=== PATIENT | male | born 1940 | race Two or more races ===

== ENCOUNTER 2016-12-24 13:12 | Inpatient (IN) | payer SELFPAY ==
--- NOTE | 2016-12-24 13:34 | CPEKG ---
Heart Rate: 74 RR Interval: 811 P-R Interval: 184 QRSD Interval: 170 QT Interval: 436 QTC Interval: 484 P [place]: 61 QRS [place]: -20 T Wave [place]: 176 EKG Severity - ABNORMAL ECG - EKG Impression: SINUS RHYTHM EKG Impression: VENTRICULAR PREMATURE COMPLEX EKG Impression: PROBABLE LEFT ATRIAL ABNORMALITY EKG Impression: LEFT BUNDLE BRANCH BLOCK Electronically Signed By: Tylre Armstrong 24-Dec-2016 17:29:51
--- NOTE | 2016-12-24 14:24 | EDPHY ---
H & P Stated Complaint: CP for "a couple of months" in [place] said he needs surg. Time Seen by Provider: 12/24/16 14:23 HPI/ROS: CHIEF COMPLAINT: Exertional chest pain HISTORY OF PRESENT ILLNESS: The patient presents to the ED with a 4 month history of exertional chest pain. The patient reportedly was seen by control tower operator in [place] 1 month ago and was diagnosed with a "tight heart valve and inflammation." It does not sound as if the patient had an angiogram. The patient denies prior history of coronary artery disease. The patient does have a history of hypertension and diabetes. The patient reports he has had 4 months of exertional chest pain. His last episode of chest pain was earlier today. He appears to taking a calcium channel nataliia which resulted in improvement of his symptoms. The patient is currently symptom-free. The patient denies pleuritic chest pain. He denies asymmetric calf pain or swelling. The patient denies additional acute complaints. REVIEW OF SYSTEMS: A comprehensive 10 point review of systems is otherwise negative aside from elements mentioned in the history of present illness. Source: Patient - Personal History Current Tetanus/Diphtheria Vaccine: Unsure Current Tetanus Diphtheria and Acellular Pertussis (TDAP): Unsure - Medical/Surgical History Hx Asthma: No Hx Chronic Respiratory Disease: No Hx Diabetes: Yes Hx Cardiac Disease: Yes Hx Renal Disease: No Hx Cirrhosis: No Hx Alcoholism: No Hx HIV/AIDS: No Hx Splenectomy or Spleen Trauma: No Other PMH: DM HTN Afib - Social History Smoking Status: Former smoker - Physical Exam Exam: General Appearance: Alert, no distress Eyes: Pupils equal and round no pallor or injection ENT, Mouth: Mucous membranes moist Respiratory: There are no retractions, lungs are clear to auscultation Cardiovascular: Regular rate and rhythm Gastrointestinal: Abdomen is soft and nontender, no masses, bowel sounds normal Neurological: A&O, normal motor function, normal sensory exam, normal cranial nerves Skin: Warm and dry, no rashes Musculoskeletal: Neck is supple nontender Extremities: symmetrical, full range of motion Constitutional: Initial Vital Signs Temperature (C) 36.8 C 12/24/16 13:17 Heart Rate 88 12/24/16 13:17 Respiratory Rate 16 12/24/16 13:17 Blood Pressure 157/95 H 12/24/16 13:17 O2 Sat (%) 96 12/24/16 13:17 O2 Delivery Mode Room Air Allergies/Adverse Reactions: erythromycin base [From E-Mycin] Allergy (Verified 12/24/16 13:22) Medical Decision Making - Diagnostics EKG Interpretation: EKG: Complete interpretation has been separately recorded in the [facility] archive. Summary impression: Left bundle branch block with nonspecific ST T wave changes noted. No prior EKG to compare to. Imaging Results: Imaging Impressions Chest X-Ray 12/24/16 14:31 Impression: 1. Hypoventilatory chest with peribronchial thickening possibly related to mild fluid overload or bronchitis. 2. Mild cardiomegaly. ED Course/Re-evaluation: The patient presents to the ED with a 4 month history of intermittent exertional chest pain. The patient has a left bundle branch block of unknown duration. The patient is currently chest pain-free. The patient has a number of risk factors for acute coronary syndrome and coronary artery disease. The patient's initial troponin was elevated at 0.081. The patient did receive a 325 mg dose of aspirin. The patient was placed on a classroom monitor. A stat echocardiogram was obtained. I consulted with Dr. Tom Abraham who is on-call for Cardiology who will see the patient in consultation. The patient was seen by Lou from Cardiology in the emergency department who informs me the cardiology service will admit the patient primarily. Patient remained chest pain free throughout his stay in the emergency department. The patient did have an echocardiogram which demonstrates an ejection fraction of 20% and global hypokinesis. Differential Diagnosis: Differential diagnosis considered includes acute coronary syndrome, metabolic abnormality, pericarditis, pulmonary embolism, pneumothorax, dissection - Data Points Laboratory Results: Laboratory Results 12/24/16 14:10 12/24/16 14:10 12/24/16 12/24/16 14:10 14:10 WBC 6.82 10^3/uL 10^3/uL (3.80-9.50) RBC 5.04 10^6/uL 10^6/uL (4.40-6.38) Hgb 15.0 g/dL g/dL (13.7-17.5) Hct 44.4 % % (40.0-51.0) MCV 88.1 fL fL (81.5-99.8) MCH 29.8 pg pg (27.9-34.1) MCHC 33.8 g/dL g/dL (32.4-36.7) RDW 13.3 % % (11.5-15.2) Plt Count 142 10^3/uL L 10^3/uL (150-400) MPV 11.8 fL H fL (8.7-11.7) Neut % (Auto) 50.4 % % (39.3-74.2) Lymph % (Auto) 37.7 % % (15.0-45.0) [place] % (Auto) 7.6 % % (4.5-13.0) Eos % (Auto) 3.8 % % (0.6-7.6) Baso % (Auto) 0.4 % % (0.3-1.7) Nucleat RBC Rel Count 0.0 % % (0.0-0.2) Absolute Neuts (auto) 3.43 10^3/uL 10^3/uL (1.70-6.50) Absolute Lymphs (auto) 2.57 10^3/uL 10^3/uL (1.00-3.00) Absolute Monos (auto) 0.52 10^3/uL 10^3/uL (0.30-0.80) Absolute Eos (auto) 0.26 10^3/uL 10^3/uL (0.03-0.40) Absolute Basos (auto) 0.03 10^3/uL 10^3/uL (0.02-0.10) Absolute Nucleated RBC 0.00 10^3/uL 10^3/uL (0-0.01) Immature Gran % 0.1 % % (0.0-1.1) Immature Gran # 0.01 10^3/uL 10^3/uL (0.00-0.10) Sodium 146 mEq/L H mEq/L (134-144) Potassium 4.6 mEq/L mEq/L (3.5-5.2) Chloride 111 mEq/L H mEq/L (97-110) Carbon Dioxide 21 mEq/l L mEq/l (22-31) Anion Gap 14 mEq/L mEq/L (8-16) BUN 21 mg/dL mg/dL (7-23) Creatinine 1.0 mg/dL mg/dL (0.7-1.3) Estimated GFR > 60 Glucose 165 mg/dL H mg/dL (70-100) Calcium 9.6 mg/dL mg/dL (8.5-10.4) Troponin I 0.081 ng/mL H ng/mL (0-0.034) NT-Pro-B Natriuret Pep Pending Departure - Departure Disposition: [facility] Inpatient Acute Clinical Impression: Elevated troponin Chest pain Qualifiers: Chest pain type: precordial pain Qualified Code(s): R07.2 - Precordial pain Condition: Good
[2016-12-24 14:33] LABS: % IMMATURE GRANULYOCYTES 0.1 % (0.0-1.1); ABSOLUTE IMMATURE GRANULOCYTES 0.01 10^3/uL (0.00-0.10); ADD DIFF? NO; ADD MORPH? NO; ADD SCAN? NO; ATYPICAL LYMPHOCYTE FLAG 20 (0-99); FRAGMENT RBC FLAG 0 (0-99); HEMATOCRIT 44.4 % (40.0-51.0); LEFT SHIFT FLG 20 (0-99); LIPEMIA HEMOLYSIS FLAG 90 (0-99); MEAN CELL HEMOGLOBIN 29.8 pg (27.9-34.1); MEAN CELL HEMOGLOBIN CONCENTR. 33.8 g/dL (32.4-36.7); MEAN CELL VOLUME 88.1 fL (81.5-99.8); MEAN PLATELET VOLUME 11.8 fL (8.7-11.7); PLATELET CLUMPS FLAG 10 (0-99); PLATELET COUNT 142 10^3/uL (150-400); RED BLOOD CELL COUNT 5.04 10^6/uL (4.40-6.38); RED CELL DISTRIBUTION WIDTH 13.3 % (11.5-15.2)
[2016-12-24 14:57] LABS: ANION GAP 14 mEq/L (8-16); CALCIUM 9.6 mg/dL (8.5-10.4); CARBON DIOXIDE 21 mEq/l (22-31); CHLORIDE 111 mEq/L (97-110); GLOMERULAR FILTRATION RATE > 60; GLUCOSE 165 mg/dL (70-100); POTASSIUM 4.6 mEq/L (3.5-5.2); SODIUM 146 mEq/L (134-144)
[2016-12-24 15:09] LABS: TROPONIN I 0.081 ng/mL (0-0.034)
--- NOTE | 2016-12-24 16:07 | ECHO ---
[id number] + + [address] : : [place] [address] : : [phone] + + Adult Echocardiographic Report + ----+ :Name: Anayeli ABREUvivek Date: 12/24/2016 03:24 PM : : Hospital Admission Number: [id number] Location : ER: :: 1940 Gender: Male Height: 66 in : :Age: 76 yrs Race: [facility] Weight: 171 lb : :Reason For Study: Chest pain x 4 months : : BSA: 1.9 meters2 : :History: Pt claims small [place] many years ago. : + ----+ MMode/2D Measurements \T\ Calculations IVSd: 0.57 cm LVIDd: 6.4 cm FS: 13.9 % MV Diam: 2.8 cm LVPWd: 0.88 cm LVIDs: 5.5 cm EDV(Teich): 207.8 ml ESV(Teich): 147.4 ml EF(Teich): 29.1 % LA dimension: LVOT diam: 2.1 cmLVLd ap4: 10.0 cm SV(MOD-sp4): 4.3 cm LVOT area: EDV(MOD-sp4): 41.0 ml 3.5 cm2 155.0 ml LVLs ap4: 9.1 cm ESV(MOD-sp4): 114.0 ml EF(MOD-sp4): 26.5 % Normal Measurement Values: + + :LVIDd (3.5-5.7cm) IVSd (0.6-1.1cm) LVPWd (0.6-1.1cm) Aortic Root (2.0-3.7cm)Left Atrium (1.5-4.0cm): :LV Vol(d) (76-115ml) LV Vol(s) (29-48ml) Ejec Fraction (50-65%)PV Samir (0.6- 1.2m/s) TV Samir (0.4-1.0m/s) : :MV E Samir (0.8-1.0m/s)MV A Samir (0.3-1.0m/s)LVOT Samir (0.7-1.2m/s) Asc Ao Samir ( 0.9-1.8m/s) : + + Doppler Measurements \T\ Calculations MV E max samir: MV V2 max: Ao V2 max: LV V1 max: 117.0 cm/sec 132.0 cm/sec 146.0 cm/sec 77.5 cm/sec MV A max samir: MV max P.0 mmHg Ao max P.5 mmHgLV V1 max P.5 cm/sec MV V2 mean: Ao mean P.4 mmHg MV E/A: 1.6 79.5 cm/sec 4.0 mmHg LV V1 mean PG: MV mean P.0 mmHgAo V2 mean: 1.0 mmHg MV V2 VTI: 47.2 cm 92.7 cm/sec LV V1 mean: MV area (1 diam): Ao V2 VTI: 26.1 cm 49.6 cm/sec 6.2 cm2 MELISSA(I,D): 1.7 cm2 LV V1 VTI: 13.1 cm MVA(VTI): 0.96 cm2 MELISSA(V,D): 1.8 cm2 MV Flow area(1diam): 6.2 cm2 MR max samir: MR(RF 1 diam): 3.0 %SV(MV 1 diam): TR max samir: 510.0 cm/sec 290.6 ml 266.0 cm/sec MR max PG: SI(MV 1 diam): TR max P.0 mmHg 155.3 ml/m2 28.3 mmHg SV(LVOT): 45.4 ml RAP systole: 5.0 mmHg RVSP(TR): 33.3 mmHg RF(MV,LVOT)(1diam): 0.84 Left Ventricle The left ventricle is mildly dilated. There is mild concentric left ventricular hypertrophy. Left ventricular systolic function is moderate to severely reduced. EF estimate is 20%. There is Doppler evidence for diastolic dysfunction. Septal motion is consistent with conduction abnormality. LV entire apical region including apical septal/inferior and apical anterior narayan are akinetic. Right Ventricle The right ventricle is normal in size and function. Atria The left atrium is moderately dilated. Right atrial size is normal. The interatrial septum is intact with no evidence for an atrial septal defect. Mitral Valve Calcified mitral apparatus. There is no evidence of mitral valve prolapse. There is no mitral valve stenosis. There is moderate mitral regurgitation. Tricuspid Valve Normal tricuspid valve. There is trace tricuspid regurgitation. Aortic Valve The aortic valve opens well. There is no aortic stenosis. Trace aortic regurgitation. Pulmonic Valve The pulmonic valve is normal in structure and function. There is no pulmonic valvular regurgitation. Great Vessels The aortic root is normal size. Pericardium/Pleural There is no pericardial effusion. Conclusion A complete two-dimensional transthoracic echocardiogram was performed (2D, M-mode, Doppler and color flow Doppler). The left ventricle is mildly dilated. Left ventricular systolic function is moderate to severely reduced. EF estimate is 20%. There is Doppler evidence for diastolic dysfunction. There is mild concentric left ventricular hypertrophy. Septal motion is consistent with conduction abnormality. LV entire apical region including apical septal/inferior and apical anterior narayan are akinetic. The left atrium is moderately dilated. Calcified mitral apparatus. There is moderate mitral regurgitation. There is trace tricuspid regurgitation. Trace aortic regurgitation. Final Reading Physician: Ludin Gastelum signed on 12/24/2016 04:06 PM Ordering Physician: Tyler Armstrong Performed By: Xi Corona RDCS
[2016-12-24] MEDS ORDERED: ONDANSETRON DISINTEGRATING 4 MG TAB PO PRN (16:10)
[2016-12-24] MEDS ORDERED: TEMAZEPAM 15 MG CAP PO PRN (16:10)
[2016-12-24] MEDS ORDERED: ACETAMINOPHEN 325 MG TAB PO PRN (16:10)
[2016-12-24] MEDS ORDERED: NITROGLYCERIN 0.4 MG BTL SL PRN (16:10)
[2016-12-24] MEDS ORDERED: D50W 25 GM/50 ML SYR IVP PRN (16:49)
--- NOTE | 2016-12-24 17:33 | GCON ---
[f rep st] CONSULTATION CARDIOLOGY CONSULTATION REASON FOR CONSULTATION: We are asked by Dr. Asad Armstrong of the emergency department to evaluate the patient for his chest pain. HISTORY OF PRESENT ILLNESS: The patient is a 76-year-old male with a history listed of hypertension , type 2 diabetes mellitus, and possibly AFib, who reports a 4-month history of exertional chest dis comfort. He describes a midsternal discomfort with associated dyspnea. Symptoms are associated wit h minimal activity and described as moderate to severe tightness. He denies any radiation. He desc ribes chest discomfort that radiates to his bilateral arms. He was recently seen in [place] and was told he had an "inflammation in his heart" and was also told he had a heart valve that was blocked. REVIEW OF SYSTEMS: Positive for a 30 kg weight loss due to dry heaves and inability to swallow. He has also been noting edema. PAST MEDICAL HISTORY: 1. Diabetes mellitus. 2. Hypertension. 3. Atrial fibrillation. PAST SURGICAL HISTORY: None listed. SOCIAL HISTORY: He is . 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 [facility] [place] [facility] He denies any alcohol intake. MEDICATIONS: Yet to be reconciled. ALLERGIES: Listed to erythromycin. PHYSICAL EXAMINATION: VITAL SIGNS: BP of 153/85, heart rate 60, respirations 16, O2 saturation 94% on room air. GENERAL: He is a pleasant male, in no apparent distress. EYES: CHAYO. No scleral i cterus detected. HEENT: Head normocephalic, atraumatic. Mucous membranes moist. NECK: Supple wi th no JVD. HEART: Regular rate and rhythm. LUNGS: Clear. ABDOMEN: Nontender, with normoactive bowel sounds. His xiphoid process is protuberant, without tenderness on palpation. SKIN: Warm and dry. EXTREMITIES: There is 2+ ankle edema. Multiple excoriations. : No Akers present. PSYCH : Normal mood and affect. NEURO: No focal deficits detected. LABORATORY DATA: CBC with WBC 6.82, hemoglobin 15, hematocrit 44.4, platelet count 142. BMP with s odium 146, potassium 4.6, chloride 111, CO2 21, BUN 21, creatinine 1, glucose 165. Troponin 0.081. 12-lead ECG, personally interpreted, demonstrates sinus rhythm with left bundle branch block. One PVC noted. Chest x-ray reviewed shows mild cardiomegaly, hypoventilatory chest with peribronchial t hickening related to mild fluid overload. Echocardiogram from this admission shows EF of 20% with m oderate to severely reduced LV systolic function. LV is mildly dilated. There is diastolic dysfunc tion. There is mild concentric LVH. There is LV entire apical region including apical septal infer ior and apical anterior narayan that are akinetic. Moderately dilated left atrium. Calcified mitral apparatus. Moderate MR, trace TR, and trace AR. I have reviewed the care with Dr. Asad Armstrong and Shelton Munoz. IMPRESSION AND PLAN: The patient is a 76-year-old male presenting with acute heart failure and acut e coronary syndrome. 1. Acute coronary syndrome. His symptoms are worrisome for CCS class 3-4 angina. Reviewed options , and the patient is agreeable to left heart catheterization for further evaluation. 2. Systolic congestive heart failure. New diagnosis. Further workup is indicated. He will be kep t n.p.o. for left heart catheterization in the morning. 3. Type 2 diabetes mellitus. His medications are yet to be reconciled. We will plan for sliding s adolfo insulin. 4. Hypertension. Blood pressure is inadequately controlled. His medications will be reconciled. He will be started on beta nataliia therapy. 5. Weight loss. Unclear etiology. We will either ask for a hospitalist consult versus outpatient gastrointestinal workup due to his anorexia and difficulty swallowing. 6. Status. The patient is being admitted to observation status. Should he require further testing , he will need to be transitioned to inpatient status. 7. Code status. He is full code. 8. Deep venous thrombosis prophylaxis. He is moderate risk. We will await further results from e cardiac catheterization before starting on deep venous thrombosis prophylaxis. He will be started on mechanical prophylaxis with compression stockings now. /[id number]/MODL
[2016-12-24] MEDS: ASPIRIN EC 325 MG TAB PO SCH (18:08)
[2016-12-24] MEDS: INSULIN LISPRO 100 UNIT/ML SC SCH (18:38)
[2016-12-24 19:43] LABS: HEMOGLOBIN A1C 11.8 % (4.0-6.0)
[2016-12-24] MEDS: METOPROLOL TARTRATE 25 MG TAB PO SCH (20:03)
[2016-12-25 02:33] LABS: % IMMATURE GRANULYOCYTES 0.1 % (0.0-1.1); ABSOLUTE IMMATURE GRANULOCYTES 0.01 10^3/uL (0.00-0.10); ADD DIFF? NO; ADD MORPH? NO; ADD SCAN? NO; ATYPICAL LYMPHOCYTE FLAG 10 (0-99); FRAGMENT RBC FLAG 0 (0-99); HEMATOCRIT 42.3 % (40.0-51.0); HEMOGLOBIN 14.2 g/dL (13.7-17.5); LEFT SHIFT FLG 0 (0-99); LIPEMIA HEMOLYSIS FLAG 80 (0-99); MEAN CELL HEMOGLOBIN 29.5 pg (27.9-34.1); MEAN CELL HEMOGLOBIN CONCENTR. 33.6 g/dL (32.4-36.7); MEAN CELL VOLUME 87.9 fL (81.5-99.8); MEAN PLATELET VOLUME 11.7 fL (8.7-11.7); PLATELET CLUMPS FLAG 0 (0-99); PLATELET COUNT 137 10^3/uL (150-400); RED BLOOD CELL COUNT 4.81 10^6/uL (4.40-6.38); RED CELL DISTRIBUTION WIDTH 13.3 % (11.5-15.2)
[2016-12-25 02:42] LABS: INR 1.1 (0.83-1.16); PROTIME(PATIENT) 14.1 SEC (12.0-15.0)
[2016-12-25 02:43] LABS: ANION GAP 11 mEq/L (8-16); APTT 28.5 SEC (23.0-38.0); CARBON DIOXIDE 21 mEq/l (22-31); CHLORIDE 114 mEq/L (97-110); CHOLESTEROL 118 mg/dL (140-220); CHOLESTEROL/HDL RATIO 2.62 RATIO (1.00-4.97); GLOMERULAR FILTRATION RATE > 60; GLUCOSE 103 mg/dL (70-100); HIGH DENSITY LIPOPROTEIN 45 mg/dL (40-65); LDL/HDL RATIO 1.11 RATIO (1.00-3.64); LOW DENSITY LIPOPROTEIN 50 mg/dL (80-100); MAGNESIUM 1.9 mg/dL (1.6-2.3); NON-HIGH DENSITY LIPOPROTEIN 73 mg/dL (90-129); POTASSIUM 4.1 mEq/L (3.5-5.2); SODIUM 146 mEq/L (134-144); TRIGLYCERIDE 116 mg/dL (40-150); VERY LOW DENSITY LIPOPROTEINS 23 mg/dL (8-25)
[2016-12-25 02:54] LABS: TROPONIN I 0.112 ng/mL (0-0.034)
[2016-12-25] MEDS ORDERED: NS 1,000 ML IV ONE (06:00)
[2016-12-25] MEDS ORDERED: ASPIRIN EC 325 MG TAB PO ONE (06:00)
[2016-12-25] MEDS ORDERED: diphenhydrAMINE 25 MG CAP PO ONE ×2 (06:00→08:45)
[2016-12-25] MEDS ORDERED: DIAZEPAM 5 MG TAB PO ONE ×2 (06:00→08:45)
[2016-12-25] MEDS ORDERED: LIDOCAINE 1% 300 MG/30 ML SDV ONE ×3 (07:47→09:13)
[2016-12-25] MEDS ORDERED: MIDAZOLAM 2 MG/2 ML VIAL ONE ×3 (07:47→09:13)
[2016-12-25] MEDS ORDERED: fentaNYL 100 MCG/2 ML INJ ONE ×3 (07:47→09:13)
[2016-12-25] MEDS ORDERED: VERAPAMIL 5 MG/2 ML VIAL ONE ×2 (07:48→08:06)
[2016-12-25] MEDS ORDERED: HEPARIN 10,000 UNIT/10 ML MDV ONE ×2 (07:48→08:06)
[2016-12-25] MEDS ORDERED: IOPAMIDOL (ISOVUE-370) 150 ML BTL IV ONE ×3 (07:48→09:13)
[2016-12-25] MEDS: ASPIRIN EC 325 MG TAB PO SCH (09:00)
[2016-12-25] MEDS ORDERED: ATROPINE SULFATE 1 MG/10 ML SYR IVP PRN (10:01)
--- NOTE | 2016-12-25 10:08 | PDDXCAT ---
Diagnostic Cath Note - . Date: 12/25/16 Group Director Experience: Alexander Indication: CCC Class III and IV angina on medical treatment High-risk criteria on non-invasive testing: severe resting left ventricular dysfunction (LVEF<35%) - Procedure Access: right groin Procedure: left heart catheterization, coronary angiography, left ventriculogram - Materials Left Heart Cath size: 6F Left Heart Cath materials: standard multipack (JL4, JR4, pigtail) Right Heart Cath size: 7F Right Heart Cath materials: PWP catheter - Findings-Left Heart Catheterization LM: Unobstructed LAD: Diffuse proximal 95 to 99% stenosis proximally. Principal diagonal 85% stenosis ostial E LCX: Dominant: 1st OM with ostial 85% stenosis, 2nd OM with 85% stenosis RCA: Non dominant: Subtotal in midportion. EDP: 15 mm of mercury LVEF: 15% Wall motion: Global hypokinesis - Findings-Right Heart Catheterization RA: 5 mm of mercury RV: 40 mm of mercury PA: 40/18 mm of mercury PAOP: 15 mm of mercury Complications: None Estimated blood loss: <50ml Closure method: manual pressure Assessment: 1. Severe three-vessel coronary artery disease. 2. Severe LV dysfunction with ejection fraction of 15%. 3. Pulmonary hypertension secondary to systemic hypertension. 4. Normal left ventricular filling pressures. Plan: In this 76-year-old male with diabetes, hypertension, severe LV dysfunction with echo suggesting viability and three-vessel coronary disease with strongly recommend coronary artery bypass grafting along with aggressive medical therapy. If patient declines high risk multivessel PCI could be performed. Consultation from Dr. Fountain. Results to be discussed with patient's family Patient Problems: Problems Problem Status Onset Chest pain Acute Elevated troponin Acute
[2016-12-25 14:45] LABS: ALANINE AMINOTRANSFERASE 37 IU/L (21-72); ALBUMIN 3.4 g/dL (3.5-5.0); ALKALINE PHOSPHATASE 56 IU/L (38-126); ANION GAP 9 mEq/L (8-16); ASPARTATE AMINOTRANSFERASE 29 IU/L (17-59); BILIRUBIN,TOTAL 0.6 mg/dL (0.1-1.4); CALCIUM 8.8 mg/dL (8.5-10.4); CARBON DIOXIDE 22 mEq/l (22-31); CHLORIDE 111 mEq/L (97-110); CREATININE 0.9 mg/dL (0.7-1.3); GLOMERULAR FILTRATION RATE > 60; GLUCOSE 121 mg/dL (70-100); POTASSIUM 4.4 mEq/L (3.5-5.2); SODIUM 142 mEq/L (134-144); TOTAL PROTEIN 6.2 g/dL (6.3-8.2)
--- NOTE | 2016-12-25 15:18 | SOAPPROG ---
[facility] Progress Note Assessment/Plan: Assessment: 1. Ischemic cardiomyopathy with ef of 15% 2. Severe three vessel coronary artery disease 3. 30 lb weight loss? 4. HTN 5. DM2 6. Hyperlipidemia Impression: Angiogram well tolerated today. Clearly would benefit fro CABG with DM, HTN, 3vd and ef of 15%. Suspect myocardial hibernation. Continue medical therapy Surgical evaluation. Workup for weight loss Plan: 12/25/16 15:15 12/25/16 15:18 Subjective: Feels well. No chest pain, SOB Denies PND, orthopnea. Objective: Vital Signs Temp Pulse Resp BP Pulse Ox 36.6 C 60 8 L 148/87 H 99 12/25/16 13:42 12/25/16 13:42 12/25/16 13:42 12/25/16 13:42 12/25/16 13:42 PT 14.1 SEC (12.0-15.0) 12/25/16 02:15 INR 1.10 (0.83-1.16) 12/25/16 02:15 Physical Exam - Physical Exam General Appearance: no apparent distress Neck: full range of motion, supple Respiratory: chest non-tender, lungs clear Cardiac/Chest: normal peripheral pulses, regular rate, rhythm Abdomen: normal bowel sounds, non-tender ICD10 Worksheet Patient Problems: Problems Problem Status Onset Chest pain Acute Elevated troponin Acute Review of Systems - Review of Systems Constitutional: weight loss. denies: chills, fever EENTM: no symptoms reported Respiratory: no symptoms reported Cardiac: no symptoms reported Genitourinary: no symptoms Musculoskelatal: no symptoms
[2016-12-25] MEDS: INSULIN LISPRO 100 UNIT/ML SC SCH ×3 (17:54→18:15)
[2016-12-25] MEDS: METOPROLOL TARTRATE 25 MG TAB PO SCH ×2 (17:58→21:18)
[2016-12-25] MEDS: ENALAPRIL MALEATE 10 MG TAB PO SCH (17:58)
[2016-12-25] MEDS: DIGOXIN 250 MCG TAB PO SCH (17:59)
[2016-12-25] MEDS ORDERED: SIMVASTATIN PO SCH (21:00)
[2016-12-25] MEDS ORDERED: EZETIMIBE PO SCH (21:00)
[2016-12-25] MEDS: ATORVASTATIN CALCIUM 20 MG TAB PO SCH (21:14)
[2016-12-25] MEDS: EZETIMIBE 10 MG TAB PO SCH (21:14)
--- NOTE | 2016-12-25 22:08 | GCON ---
[f rep st] CONSULTATION DATE OF CONSULTATION: 12/25/2016 REFERRING PHYSICIAN: Juve Munoz MD IMPRESSION: 1. Severe 3-vessel disease with unstable angina pectoris. 2. Dilated cardiomyopathy with moderate mitral insufficiency likely functional. 3. Chronic obstructive pulmonary disease, secondary chronic ongoing cigarette abuse. 4. Alcoholism with no known sequelae. 5. Cii-ptdldkd-ccnuyjadm diabetes mellitus. 6. Hypertension. 7. Atrial fibrillation. RECOMMENDATIONS: This gentleman should undergo coronary artery revascularization after exclusion of occult malignancy. I will obtain CT scan of the chest, abdomen and pelvis. We will also performed a CMP and have medicine screen him for any other likely potential malignancies to explain weight los s. If in fact, these are negative, we will proceed with coronary artery revascularization tentative ly scheduled for Wednesday. Risk is substantially increased due to his comorbidities and ische jerome cardiomyopathy as well as underlying COPD with ongoing cigarette abuse. I will meet with the re mainder of his family in the morning and outline his 10% to 15% mortality risk. Options include med ical therapy versus attempted stenting of multiple vessels. CHIEF COMPLAINT: This is a 76-year-old, [place] national seen in consultation who developed chest p ain in [place] and was told by a technical sales advisor there that that he had an inflamed heart and a blocked valve. He got on a plane and came [place] and came directly to the ER with complaints of exertional chest pain. He underwent diagnostic left heart catheterization today, whic h showed severe 3-vessel disease with a severely dilated and ischemic appearing left ventricle with an ejection fraction of 20%. He has moderate mitral and tricuspid insufficiency. Right heart raz terization was not done. On echo his pulmonary pressures were not evaluated. The right ventricle i s normal in size and function. Current lab report is unremarkable. No LFTs were obtained. FAMILY HISTORY: Noncontributory. REVIEW OF SYSTEMS: He complained of difficulty with swallowing but denies any melena, hematochezia or other pertinent events. MEDICATIONS: Please see MAR. He is currently on no blood thinners except aspirin. PHYSICAL EXAMINATION: VITAL SIGNS: 140/87, pulse 60, O2 saturation 99% on 3 L. He is afebrile. H EENT: Normocephalic. ANNELIESE, EOMI. NECK: Without bruit or adenopathy. Dentition is poor. HEART: Rate is regular with a soft murmur across the precordium. LUNGS: Diminished. ABDOMEN: Soft, no ntender. No palpable organomegaly or masses. RECTAL AND GENITAL: Deferred. Peripheral pulses are absent. He has no pedal pulses. He has no edema. He has no varicosities. /[id number]/MODL
--- NOTE | 2016-12-25 23:33 | GCON ---
[f rep st] CONSULTATION ENT CONSULTATION CHIEF COMPLAINT: Dysphagia, globus sensation. HISTORY OF PRESENT ILLNESS: The patient was admitted through the emergency department for exertional chest pain. On further query when he got onto the floor, he was found to have a recent history of about 40-pound weight loss and significant dysphagia. This, combined with his history of smoking, was concerning for a possible neoplasm that could limit his treatment for cardiac problems. I was consulted by Dr. Jose Fountain, to take a look at the patient and evaluate. The patient solely speaks Bulgarian, and his daughter and our PA student provided excellent interpretation. The patient states that over the past several weeks to a couple of months, he has had decreased appetite. This has led to a decrease in his dietary intake. As well, he has noted a feeling of a lump in his throat and a mild chronic cough. He says the cough is nonproductive. He has no complaints of voice change, odynophagia, referred ear pain, aspiration or choking, or difficulty swallowing. REVIEW OF SYSTEMS: Negative x10 but for what was noted in the HPI. PAST MEDICAL HISTORY: Chest pain, diabetes mellitus, hypertension, AFib. SOCIAL HISTORY: Former smoker, quit 2 years ago. PHYSICAL EXAM: VITAL SIGNS: Blood pressure 167/101, heart rate 75, respiratory rate of 8, O2 saturation 92% on room air, temperature 36.5 degrees Celsius. GENERAL: Alert, interactive, no acute distress. HEAD AND FACE: Normocephalic, atraumatic with generally symmetric facial features. EARS: Bilateral pinnae and canals are nontender, nonerythematous. Tympanic membranes are intact without evidence of effusion or mass. EYES: EOMI. NOSE: Anterior rhinoscopy shows no evidence of polyps, purulence, bleeding, or mass. Otherwise , normal septal and turbinate anatomy. ORAL CAVITY/OROPHARYNX: No lesions of the lips, gingiva, buccal surfaces, floor of mouth, ventral or dorsal tongue, or posterior pharynx. Dentition is moderately poor with multiple dental caries. Tonsils/tonsillar fossa unremarkable. NECK: Supple. No anterior chain or lateral masses, or evidence of adenopathy. No significant thyromegaly or thyroid mass. One solitary subcentimeter mobile nontender mass at the left posterior superior neck/suboccipital. No overlying skin changes with this. PROCEDURE: Flexible nasopharyngolaryngoscopy was performed on the patient following verbal informed consent, and Afrin and lidocaine nasal spray. The flexible scope was passed through the right nasal cavity and in through the nasopharynx. Nasopharyngeal inlet was unremarkable. Structures of the dorsal soft palate, uvula, posterior tongue and tongue base, epiglottis, vallecula, piriform sinuses, posterior pharyngeal narayan, and further laryngeal structures as well as esophageal inlet were visualized. No evidence of asymmetry, mass, ulceration, or other lesion. There is some general thickening of the interarytenoid mucosa. Bilateral vocal folds lateralize and approximate well and true vocal folds, although atrophic, are largely unremarkable. The remainder of the above-stated structures appeared unremarkable. ASSESSMENT AND PLAN: 76-year-old male with a globus sensation, recent weight loss, and history of smoking. I see no evidence of head and neck disease to indicate a neoplasm or other cause of his symptoms. His globus sensation is likely secondary to the interarytenoid edema seen on laryngoscopy. This may be related to poorly-controlled reflux. A subcutaneous nodule at his suboccipital right neck feels like a benign lymph node, although it is mildly firm. Being that it is under 1 cm, this likely does not warrant a workup at this time. It may be reactive to poor dentition or other local subacute inflammation. Would recommend continuing a regular diet. I see no evidence of neoplasm or other disease on exam today to warrant further workup. Please call with any questions. My cell phone number is [phone]. /[id number]/MODL MTDD
[2016-12-26] MEDS: ENALAPRIL MALEATE 10 MG TAB PO SCH ×2 (06:01→14:30)
--- NOTE | 2016-12-26 09:03 | SOAPPROG ---
[facility] Progress Note Assessment/Plan: Assessment: 1. Coronary artery disease 2. Dyslipidemia 3. Diabetes mellitus 4. Hypertension 5. 30 lb weight loss 6 .anorexia 7. LVH 9. moderate mitral regurgitation 10. Dilated ischemic cardiomyopathy He is being evaluated for his weight loss and anorexia. So far nothing has come of that yet. He has coronary artery disease and valvular heart disease and is being prepared for surgery for Wednesday. He seems to want to go ahead with surgery. He has diabetes which has been very poorly controlled. There is remote history of atrial fibrillation. It is not clear if this really been documented are not. We will continue to try to get more information. He has mild carotid artery disease but no significant obstruction. He does not have overt heart failure right now. He is is not ischemic right now. We will up titrate his medications as tolerated. All his questions have been answered. I have discussed the case with cardiac surgery. I have also reviewed the case with his nurse. Plan: 12/26/16 09:03 12/26/16 09:06 Subjective: Has no chest pain He is having no fevers or chills Does not have shortness of breath He has not had nausea He does have a 30 lb weight loss. There is no evidence of diarrhea or other GI complaints on a consistent basis. He was having trouble swallowing and has been evaluated by your nose and throat. He has no new complaints today. He is taking his medications. He has no new neurologic issues Objective: Vital Signs Temp Pulse Resp BP Pulse Ox 36.6 C 62 18 139/85 H 94 12/26/16 07:28 12/26/16 07:28 12/26/16 07:28 12/26/16 07:28 12/26/16 07:28 12/25/16 12/26/16 12/27/16 05:59 05:59 05:59 Intake Total 620 Output Total 125 Balance 495 PT 14.1 SEC (12.0-15.0) 12/25/16 02:15 INR 1.10 (0.83-1.16) 12/25/16 02:15 Physical Exam - Physical Exam General Appearance: alert, no apparent distress Neck: non-tender, supple Respiratory: rhonchi Cardiac/Chest: regular rate, rhythm, No edema (A250 a), No tachycardia Abdomen: non-tender, soft, No organomegaly Skin: warm/dry, No pallor Extremities: non-tender Neuro/Psych: alert, normal mood/affect ICD10 Worksheet Patient Problems: Problems Problem Status Onset Chest pain Acute Elevated troponin Acute
[2016-12-26] MEDS: INSULIN LISPRO 100 UNIT/ML SC SCH ×3 (09:29→19:56)
[2016-12-26] MEDS: METOPROLOL TARTRATE 25 MG TAB PO SCH ×2 (10:20→21:34)
[2016-12-26] MEDS: ASPIRIN EC 325 MG TAB PO SCH (10:21)
[2016-12-26] MEDS ORDERED: IOPAMIDOL (ISOVUE 370) 100 ML BTL IV ONE (10:57)
[2016-12-26] MEDS: DIGOXIN 250 MCG TAB PO SCH (14:25)
[2016-12-26] MEDS: ATORVASTATIN CALCIUM 20 MG TAB PO SCH (21:34)
[2016-12-26] MEDS: EZETIMIBE 10 MG TAB PO SCH (21:34)
[2016-12-27] MEDS: ENALAPRIL MALEATE 10 MG TAB PO SCH ×2 (08:52→17:33)
--- NOTE | 2016-12-27 09:55 | SOAPPROG ---
SOAP Progress Note Assessment/Plan: Assessment: 1. Coronary artery disease 2. Dyslipidemia 3. Diabetes mellitus 4. Hypertension 5. 30 lb weight loss 6 .anorexia 7. LVH 9. moderate mitral regurgitation 10. Dilated ischemic cardiomyopathy Plan: 12/26/16 09:03 12/26/16 09:06 12/27/16 09:55 He is not having any chest pain He tells me he has no nausea or vomiting He tells me he has no diarrhea He has no other complaints He has no headache He is not having other complaints. He is going for an esophagram today. Reviewed his case with cardiac surgery and they are considering surgery in the morning. His CT scans of the chest abdomen had are attached and show no obvious reason for his profound weight loss. I have seen him with a business operations manager present. A his blood pressure is too high and we can add more medication for that. . Subjective: A he has no chest pain He is not short of breath He is not having headaches He is not having nausea vomiting He does not have a history of diarrhea. For part of the time I saw him the business operations manager was present. He appeared to be in no distress. Objective: Vital Signs Temp Pulse Resp BP Pulse Ox 36.6 C 58 L 14 166/98 H 96 12/27/16 08:00 12/27/16 08:00 12/27/16 08:00 12/27/16 08:00 12/27/16 08:00 12/26/16 12/27/16 12/28/16 05:59 05:59 05:59 Intake Total 620 560 Output Total 125 Balance 495 560 PT 14.1 SEC (12.0-15.0) 12/25/16 02:15 INR 1.10 (0.83-1.16) 12/25/16 02:15 Selected Entries 12/27/16 12/27/16 04:00 08:00 Heart Rate 60 58 L O2 Sat (%) 93 96 Blood Pressure 156/78 H 166/98 H Mean Arterial 104 H 120 H Pressure (MAP) Laboratory Tests 12/24/16 12/24/16 12/24/16 14:10 14:10 18:29 WBC 6.82 Hct 44.4 Plt Count 142 L INR Glucose 165 H POC Glucose 178 H Estim Average Glucose NT-Pro-B Natriuret Pep 1910 H Total Protein Albumin Cholesterol LDL Cholesterol, Calc HDL Cholesterol 12/24/16 12/24/16 12/25/16 20:29 Unknown 02:15 WBC 6.83 Hct 42.3 Plt Count 137 L INR Glucose POC Glucose 160 H Estim Average Glucose 292 H NT-Pro-B Natriuret Pep Total Protein Albumin Cholesterol LDL Cholesterol, Calc HDL Cholesterol 12/25/16 12/25/16 12/25/16 02:15 02:15 08:43 WBC Hct Plt Count INR 1.10 Glucose 103 H POC Glucose 152 H Estim Average Glucose NT-Pro-B Natriuret Pep Total Protein Albumin Cholesterol 118 L LDL Cholesterol, Calc 50 L HDL Cholesterol 45 12/25/16 12/25/16 12/25/16 12:19 14:06 16:40 WBC Hct Plt Count INR Glucose 121 H POC Glucose 132 H 141 H Estim Average Glucose NT-Pro-B Natriuret Pep Total Protein 6.2 L Albumin 3.4 L Cholesterol LDL Cholesterol, Calc HDL Cholesterol 12/26/16 21:45 WBC Hct Plt Count INR Glucose POC Glucose 131 H Estim Average Glucose NT-Pro-B Natriuret Pep Total Protein Albumin Cholesterol LDL Cholesterol, Calc HDL Cholesterol The Physical Exam - Physical Exam General Appearance: alert, no apparent distress Neck: non-tender Respiratory: lungs clear (A) Cardiac/Chest: regular rate, rhythm, systolic murmur Abdomen: normal bowel sounds, non-tender Skin: warm/dry Extremities: non-tender Neuro/Psych: alert ICD10 Worksheet Patient Problems: Problems Problem Status Onset Chest pain Acute Elevated troponin Acute
[2016-12-27] MEDS: ASPIRIN EC 325 MG TAB PO SCH (10:43)
[2016-12-27] MEDS: METOPROLOL TARTRATE 50 MG TAB PO SCH ×2 (10:43→22:01)
[2016-12-27] MEDS: INSULIN LISPRO 100 UNIT/ML SC SCH ×2 (10:44→17:55)
[2016-12-27] MEDS: METOPROLOL TARTRATE 25 MG TAB PO SCH (10:54)
[2016-12-27] MEDS ORDERED: MUPIROCIN 2% 22 GM OINT NS ONE (12:22)
[2016-12-27] MEDS ORDERED: CHLORHEXIDINE GLUC HIBICLENS 118 ML BTL TP SCH (21:00)
[2016-12-27] MEDS: MUPIROCIN 2% 22 GM OINT NS SCH (22:00)
[2016-12-27] MEDS: EZETIMIBE 10 MG TAB PO SCH (22:01)
[2016-12-27] MEDS: ATORVASTATIN CALCIUM 20 MG TAB PO SCH (22:01)
[2016-12-28] MEDS ORDERED: SODIUM BICARBONATE 20 MEQ, LIDOCAINE 1% 10 ML in NORMOSOL-R 1,000 ML MISC ONE (06:00)
[2016-12-28] MEDS ORDERED: NOREPINEPHRINE BITARTRATE 16 MG in NS 250 ML IV ONE (06:00)
[2016-12-28] MEDS ORDERED: PHENYLEPHRINE HCL 50 MG in NS 250 ML IV ONE (06:00)
[2016-12-28] MEDS ORDERED: MANNITOL 25% 12.5 GM/50 ML VIAL IV ONE (06:00)
[2016-12-28] MEDS ORDERED: INSULIN REGULAR HUMAN 100 UNIT in NS 100 ML IV ONE (06:00)
[2016-12-28] MEDS ORDERED: AMINOCAPROIC ACID 5 GM/20 ML VIAL IV ONE (06:00)
[2016-12-28] MEDS ORDERED: niCARdipine/NACL 200 ML IV SCH (06:00)
[2016-12-28] MEDS ORDERED: ceFAZolin 2 GM/DEXTROSE 100 ML IV ONE (06:00)
[2016-12-28] MEDS ORDERED: VERAPAMIL 5 MG, NITROGLYCERIN 2.5 MG, HEPARIN 500 UNIT, SODIUM BICARBONATE 0.2 MEQ in L... MISC ONE (06:00)
[2016-12-28] MEDS ORDERED: CITRATE DEXTROSE SOLN 500 ML BAG MISC ONE (06:00)
[2016-12-28] MEDS ORDERED: DOBUTamine 500 MG in D5W 250 ML IV SCH (06:00)
[2016-12-28] MEDS ORDERED: POTASSIUM Cl (KCl) 20 MEQ/50 ML BAG IV ONE (06:22)
[2016-12-28] MEDS ORDERED: MILRINONE/DEXTROSE/100 ML BAG IV ONE (06:22)
[2016-12-28] MEDS ORDERED: DOPamine/DEXTROSE/250 ML BAG IV ONE (06:22)
[2016-12-28] MEDS ORDERED: niCARdipine/NACL/200 ML BAG IV ONE (06:22)
[2016-12-28] MEDS ORDERED: PROTAMINE SULFATE 50 MG/5 ML VIAL IVP ONE (06:22)
[2016-12-28] MEDS ORDERED: HEPARIN 10,000 UNIT/10 ML MDV ONE (06:22)
[2016-12-28] MEDS ORDERED: methylPREDNISolone SOD SUCC 1 GM/8 ML VIAL ONE (06:22)
[2016-12-28] MEDS ORDERED: AMIODARONE HCL 150 MG/3 ML VIAL ONE (06:22)
[2016-12-28] MEDS ORDERED: ALBUMIN 5% 250 ML BOTTLE IV ONE (06:22)
[2016-12-28] MEDS ORDERED: MAGNESIUM SULFATE 1 GM/2 ML VIAL ONE (06:22)
[2016-12-28] MEDS ORDERED: AMINOCAPROIC ACID 5 GM/20 ML VIAL ONE (06:22)
[2016-12-28] MEDS ORDERED: CITRATE DEXTROSE SOLN 500 ML BAG ONE (06:22)
[2016-12-28] MEDS ORDERED: ADENOSINE 6 MG/2 ML VIAL ONE (06:22)
[2016-12-28] MEDS ORDERED: ceFAZolin 1 GM VIAL ONE (06:22)
[2016-12-28] MEDS ORDERED: CALCIUM CHLORIDE 1 GM/10 ML INJ ONE (06:22)
[2016-12-28] MEDS ORDERED: LIDOCAINE 2% 100 MG/5 ML SYR ONE (06:22)
[2016-12-28] MEDS: ENALAPRIL MALEATE 10 MG TAB PO SCH ×2 (09:16→13:22)
[2016-12-28] MEDS: ASPIRIN EC 325 MG TAB PO SCH ×2 (09:17→13:23)
[2016-12-28] MEDS: METOPROLOL TARTRATE 50 MG TAB PO SCH ×2 (09:17→13:22)
[2016-12-28] MEDS: DIGOXIN 250 MCG TAB PO SCH ×2 (09:17→13:23)
[2016-12-28] MEDS: INSULIN LISPRO 100 UNIT/ML SC SCH ×3 (09:17→18:47)
[2016-12-28] MEDS: MUPIROCIN 2% 22 GM OINT NS SCH ×2 (11:00→20:35)
[2016-12-28] MEDS ORDERED: CEFAZOLIN 2 GM/DEXTROSE/100 ML BAG IV ONE (11:55)
[2016-12-28] MEDS: ATORVASTATIN CALCIUM 20 MG TAB PO SCH (20:33)
[2016-12-28] MEDS: METOPROLOL TARTRATE 25 MG TAB PO SCH (20:34)
[2016-12-28] MEDS: EZETIMIBE 10 MG TAB PO SCH (20:34)
[2016-12-28] MEDS ORDERED: CHLORHEXIDINE GLUC HIBICLENS 118 ML BTL TP SCH (21:00)
[2016-12-29] MEDS ORDERED: CITRATE DEXTROSE SOLN 500 ML BAG MISC ONE (06:00)
[2016-12-29] MEDS ORDERED: PHENYLEPHRINE HCL 50 MG in NS 250 ML IV ONE (06:00)
[2016-12-29] MEDS ORDERED: INSULIN REGULAR HUMAN 100 UNIT in NS 100 ML IV ONE (06:00)
[2016-12-29] MEDS ORDERED: ceFAZolin 2 GM/DEXTROSE 100 ML IV ONE (06:00)
[2016-12-29] MEDS ORDERED: MANNITOL 25% 12.5 GM/50 ML VIAL IV ONE (06:00)
[2016-12-29] MEDS ORDERED: SODIUM BICARBONATE 20 MEQ, LIDOCAINE 1% 10 ML in NORMOSOL-R 1,000 ML MISC ONE (06:00)
[2016-12-29] MEDS ORDERED: AMINOCAPROIC ACID 5 GM/20 ML VIAL IV ONE (06:00)
[2016-12-29] MEDS ORDERED: NOREPINEPHRINE BITARTRATE 16 MG in NS 250 ML IV ONE (06:00)
[2016-12-29] MEDS ORDERED: DOBUTamine 500 MG in D5W 250 ML IV SCH (06:00)
[2016-12-29] MEDS ORDERED: NA BICARBONATE 50 MEQ/50 ML VIAL ONE ×2 (07:00→18:20)
[2016-12-29] MEDS: ENALAPRIL MALEATE 10 MG TAB PO SCH ×2 (08:10→17:48)
[2016-12-29] MEDS: INSULIN LISPRO 100 UNIT/ML SC SCH ×3 (08:11→17:49)
[2016-12-29] MEDS: ASPIRIN EC 325 MG TAB PO SCH (09:21)
[2016-12-29] MEDS: METOPROLOL TARTRATE 25 MG TAB PO SCH (09:23)
[2016-12-29] MEDS: DIGOXIN 250 MCG TAB PO SCH (09:25)
[2016-12-29] MEDS: MUPIROCIN 2% 22 GM OINT NS SCH ×2 (09:29→21:46)
--- NOTE | 2016-12-29 10:29 | PDANEPAE ---
ANE History of Present Illness cad ANE Past Medical History - Cardiovascular History Hx Hypertension: Yes Hx Arrhythmias: Yes Hx Chest Pain: Yes Hx Coronary Artery / Peripheral Vascular Disease: Yes Hx CHF / Valvular Disease: Yes - Pulmonary History Hx COPD: Yes Hx Oxygen in Use at Home: No Hx Sleep Apnea: No Sleep Apnea Screening Result - Last Documented: Positive - Endocrine History Hx Diabetes: Yes - Renal History Hx Renal Disorders: No - Liver History Hx Hepatic Disorders: No - GI History GERD: moderate - Chronic Pain History Chronic Pain: No - Surgical History Prior Surgeries: no prior surgery ANE Review of Systems - Exercise capacity Exercise capacity: <4 METS ANE Patient History - Allergies Allergies/Adverse Reactions: erythromycin base [From E-Mycin] Allergy (Verified 12/24/16 13:22) - Home Medications Home Medications: Canagliflozin [Invokana] 300 mg PO DAILY 12/24/16 [Last Taken 12/24/16] Coplavix (Clopidogrel 75/Asa 100) 1 tab PO DAILY AT 9PM 12/24/16 [Last Taken ] Digoxin 250 mcg PO MOTUWETHFRSA 12/24/16 [Last Taken 12/24/16] Enalapril Maleate [Vasotec 10 MG (*)] 10 mg PO BID AT 7AM AND 3PM 12/24/16 [ Last Taken 12/24/16] Ezetimibe/Simvastatin [Vytorin 10-40 mg Tablet] 1 tab PO DAILY AT 9PM 12/24/16 [ Last Taken 12/23/16] Isosorbide Dinitrate 5 mg SL ONCE PRN 12/24/16 [Last Taken Unknown] Nitroglycerin [Minitran] 1 each TD DAILY 12/24/16 [Last Taken 12/24/16] glyBURIDE [Glyburide] 10 mg PO Q8H 12/24/16 [Last Taken 12/24/16] metFORMIN HCL [Glucophage 850 mg (*)] 850 mg PO Q8H 12/24/16 [Last Taken ] - NPO status NPO Since - Liquids (Date): 12/29/16 NPO Since - Liquids (Time): 00:00 NPO Since - Solids (Date): 12/29/16 NPO Since - Solids (Time): 00:00 - Anes Hx Anes Hx: no prior problems - Smoking Hx Smoking Status: Former smoker - Alcohol Use Alcohol Use: Occasionally ANE Labs/Vital Signs - Labs Result Diagrams: 12/25/16 02:15 12/25/16 14:06 - Vital Signs Blood Pressure: 147/86 Heart Rate: 67 Respiratory Rate: 16 O2 Sat (%): 97 Height: 160 cm Weight: 74.5 kg ANE Physical Exam - Airway Mallampati Score: Class 2 Mouth exam: normal dental/mouth exam, poor dentition - Pulmonary Pulmonary: no respiratory distress - Cardiovascular Cardiovascular: irregularly irregular - ASA Status ASA Status: IV ANE Anesthesia Plan Anesthesia Plan: general endotracheal anesthesia Lines/Monitors: arterial line, central line, BENSON
[2016-12-29] MEDS ORDERED: CEFAZOLIN 2 GM/DEXTROSE/100 ML BAG IV ONE (12:32)
[2016-12-29] MEDS ORDERED: ROCURONIUM 100 MG/10 ML VIAL ONE (12:42)
[2016-12-29] MEDS ORDERED: PHENYLEPHRINE 10 MG/ML SDV ONE (12:42)
[2016-12-29] MEDS ORDERED: LIDOCAINE 2% 5 ML SDV ONE (12:43)
--- NOTE | 2016-12-29 12:59 | PDHPUP ---
History & Physical Update H&P update statement: This history and physical update is based on an assessment of the patient which was completed after admission or registration (within 24 hours), but prior to the surgery/procedure. H&P update: H&P reviewed & patient examined (no CP or SOB awaiting surgery)
[2016-12-29] MEDS ORDERED: fentaNYL 100 MCG/2 ML INJ ONE ×5 (13:00)
[2016-12-29] MEDS ORDERED: PROPOFOL 200 MG/20 ML VIAL ONE (13:00)
[2016-12-29] MEDS ORDERED: VERAPAMIL 5 MG/2 ML VIAL ONE (13:02)
[2016-12-29] MEDS ORDERED: MINERAL OIL 10 ML VIAL ONE (13:02)
[2016-12-29] MEDS ORDERED: PAPAVERINE HCL 60 MG/2 ML SDV ONE (13:02)
[2016-12-29] MEDS ORDERED: MIDAZOLAM 2 MG/2 ML VIAL ONE ×2 (13:16→16:05)
[2016-12-29] MEDS ORDERED: METOPROLOL TARTRATE 5 MG/5 ML INJ ONE (13:30)
[2016-12-29] MEDS ORDERED: VERAPAMIL 5 MG, NITROGLYCERIN 2.5 MG, HEPARIN 500 UNIT, SODIUM BICARBONATE 0.2 MEQ in L... MISC ONE (13:30)
[2016-12-29] MEDS ORDERED: GLYCOPYRROLATE 0.2 MG/1 ML VIAL ONE ×3 (14:06→14:09)
[2016-12-29] MEDS ORDERED: NITROGLYCERIN 50 MG/10 ML SDV IV ONE (14:14)
[2016-12-29] MEDS ORDERED: MAGNESIUM SULF 2 GM/WATER 50 ML BAG IV ONE (14:15)
[2016-12-29] MEDS ORDERED: PROPOFOL/EMULSION 500 MG/50 ML BOTTLE IV ONE (16:46)
[2016-12-29] MEDS ORDERED: MAGNESIUM HYDROXIDE 30 ML UDCUP PO PRN (17:37)
[2016-12-29] MEDS ORDERED: LACTULOSE 20 GM/30 ML UDCUP PO PRN (17:37)
[2016-12-29] MEDS ORDERED: SODIUM CL NASAL 45 ML BTL EACHNARE PRN (17:37)
[2016-12-29] MEDS ORDERED: POLYETHYLENE GLYCOL 3350 17 GM PKT PO PRN (17:37)
[2016-12-29] MEDS ORDERED: MEPERIDINE 25 MG/ML SYR IVP PRN (17:37)
[2016-12-29] MEDS ORDERED: BISACODYL 10 MG SUPP PR PRN (17:37)
[2016-12-29] MEDS ORDERED: MAGNESIUM SULF 2 GM/WATER 50 ML IV ONE (17:37)
[2016-12-29] MEDS ORDERED: PANTOPRAZOLE SODIUM 40 MG in NS 100 ML IV ONE (17:37)
[2016-12-29] MEDS ORDERED: CEPACOL LOZENGE PO PRN (17:37)
[2016-12-29] MEDS ORDERED: METOCLOPRAMIDE 10 MG/2 ML VIAL IVP PRN (17:37)
[2016-12-29] MEDS ORDERED: ACETAMINOPHEN 650 MG SUPP PR PRN (17:37)
[2016-12-29] MEDS ORDERED: NS 1,000 ML IV SCH (17:45)
[2016-12-29] MEDS ORDERED: IPRATROPIUM/ALBUTEROL 3 ML DEYVIAL IH PRN (17:49)
[2016-12-29] MEDS ORDERED: INSULIN REGULAR HUMAN 100 UNIT in NS 100 ML IV SCH (18:00)
[2016-12-29] MEDS ORDERED: LR 500 ML IV PRN (18:02)
[2016-12-29] MEDS ORDERED: NALOXONE HCL 0.4 MG/ML INJ IVP PRN (18:02)
--- NOTE | 2016-12-29 18:02 | POSTANESTH ---
Post Anesthetic Evaluation Cardiovascular Status: Other, See Comment (stable on dopamine) Respiratory Status: Other, See Comment (stable on vent) Level of Consciousness/Mental Status: Other, See Comment (sedateed on propofol) Pain Control: Adequate, Prn Tx Ordered Nausea/Vomiting Control: Adequate, Prn Tx Ordered Complications Possibly Related to Anesthesia: None Noted
--- NOTE | 2016-12-29 18:11 | POSTOPPROG ---
Post Op Note Date of Operation: 12/29/16 Surgeon: Jose Fountain Instructor Weaving: Aung Anesthesiologist: Jordan Anesthesia: GET(General Endotracheal) Pre-op Diagnosis: CHF 3, ASHD, ischemic CM Procedure: CAB 5 Vitale-lad,SVG-dg, [id number],pdcx, lig KACIE,EVH Inf/Abcess present in the surg proc area at time of surgery?: No EBL: 50-100 Complications: cardiac arrest preop during central line
[2016-12-29] MEDS ORDERED: SODIUM BICARBONATE 50 MEQ/50 ML SYR IVP ONE (18:30)
[2016-12-29] MEDS: POTASSIUM Cl (KCl) 50 ML IV PRN ×3 (18:41→23:42)
[2016-12-29] MEDS: niCARdipine/NACL 200 ML IV SCH (18:42)
[2016-12-29] MEDS: PROPOFOL/EMULSION 100 ML IV SCH ×2 (19:00→23:42)
[2016-12-29] MEDS: ALBUMIN 5% 250 ML IV PRN ×2 (20:29→21:55)
--- NOTE | 2016-12-29 20:54 | GOP ---
[f rep st] OPERATIVE REPORT DATE OF OPERATION: 12/29/2016 SURGEON: Jose Fountain DO CARDIOLOGY PHYSICIAN ASSISTANT: Daily Horan PA-C ANESTHESIOLOGIST: Kevin Ortega MD PREOPERATIVE DIAGNOSIS: 1. Class 3 congestive heart failure with unstable angina, and severe 3-vessel disease with ischemic dilated cardiomyopathy. 2. Functional mitral regurgitation. 3. Chronic obstructive pulmonary disease. 4. History of chronic alcohol abuse. POSTOPERATIVE DIAGNOSIS: 1. Class 3 congestive heart failure with unstable angina, and severe 3-vessel disease with ischemic dilated cardiomyopathy. 2. Functional mitral regurgitation. 3. Chronic obstructive pulmonary disease. 4. History of chronic alcohol abuse. 5. Evidence of conduction disturbance with asystole during placement of triple lumen wire. Respond ed to CPR and epinephrine after induction. PROCEDURE PERFORMED: 1. Coronary artery bypass grafting x5 with left internal mammary artery to the left anterior descen ding artery, saphenous vein graft to the diagonal, 1st obtuse marginal branch sequential, 2nd obtuse marginal, and saphenous vein graft to the posterior descending branch of the circumflex. 2. Endoscopic vein harvest. 3. Ligation of left atrial appendage. FINDINGS: The patient was noted to have ejection fraction of 15% to 20% preoperatively. He present ed with chest pain and shortness of breath. He was treated for congestive heart failure. Underwent diagnostic left heart catheterization and was found to have severe triple-vessel disease with sever e LV dysfunction and mild to moderate functional mitral regurgitation. DESCRIPTION OF PROCEDURE: He was consented for surgery, he was brought to the operating room intuba orin. While placement of a central line, he became asystole and CPR was begun. He responded to a si ngle dose of epinephrine and remained in heart block with an adequate blood pressure, with a heart r ate of about 37, with a third-degree heart block during prepping and draping. Because he was stable , we performed endoscopic vein harvest while sternotomy was performed. The mammary was harvested. He was heparinized. Intraoperative echo revealed an ejection fraction of likely 10% or 15% with a d ilated, hypertrophic muscle with moderate mitral insufficiency, which was central and considered fun ctional. The consensus was to proceed only with revascularization, particularly given the fact he h ad just arrested. After harvesting the grafts, he was cannulated and bypass was begun. A cardiople gic arrest was obtained with antegrade cardioplegia, topical hypothermia, and systemic cooling. All distal targets were of decent size with moderately diffuse disease. The conduits were excellent . The aorta was without thickening or calcification, and was cannulated with echo guidance. All di stals and proximals were performed with a cross-clamp on. The cross-clamp was removed with suction on the ascending aortic vent, spontaneous cardiac activity was noted to resume. He was easily weane d from bypass. Echo revealed persistent dilated cardiomyopathy with ejection fraction of 10% to 15% , which seemed to slowly improve into the 20% range prior to leaving the room. Cannulas were remove d and oversewn. 4 pacing wires. Two pleural and 1 mediastinal drains were placed. The thymic fat and pericardium were closed. Chest was closed in a standard fashion. The patient was returned to [facility] in stable condition. /[id number]/MODL
[2016-12-29] MEDS: CHLORHEXIDINE GLUCONATE 15 ML UDL PO SCH (21:26)
[2016-12-29] MEDS: FAMOTIDINE 20 MG/NACL 50 ML IV SCH (21:26)
[2016-12-29] MEDS: ceFAZolin 2 GM/DEXTROSE 100 ML IV SCH (21:26)
[2016-12-29] MEDS: ONDANSETRON 4 MG/2 ML VIAL IVP PRN (21:29)
[2016-12-29 22:56] LABS: CALCULATED OXYGEN SATURATION 95 % (92-95); O2 CONCENTRATIION 80 % (0-100)
[2016-12-29 22:56] LABS: CALCULATED OXYGEN SATURATION 85 % (92-95); O2 CONCENTRATIION 60 % (0-100)
[2016-12-30] MEDS: POTASSIUM Cl (KCl) 50 ML IV PRN ×2 (01:20→02:21)
[2016-12-30 04:24] LABS: BASE EXCESS -1.5 mEq/L (-2.5-2.5); BICARBONATE 24 mEq/L (22-26); MEASURED OXYGEN SATURATION 97 % (92-95); PCO2 44 mmHg (34-38); PO2 95 mmHg (65-75); TCO2 25 mEq/L (23-27)
[2016-12-30] MEDS: PROPOFOL/EMULSION 100 ML IV SCH ×2 (04:28→08:47)
[2016-12-30 04:30] LABS: END TIDAL CO2 48; O2 CONCENTRATIION 40 % (0-100); P/F RATIO 238 RATIO; PATIENT RATE 16; PIP 18.6; PRESSURE SUPPORT 7; SIMV YES
[2016-12-30 04:43] LABS: % IMMATURE GRANULYOCYTES 0.5 % (0.0-1.1); ABSOLUTE IMMATURE GRANULOCYTES 0.05 10^3/uL (0.00-0.10); ADD DIFF? NO; ADD MORPH? NO; ADD SCAN? YES; ATYPICAL LYMPHOCYTE FLAG 10 (0-99); FRAGMENT RBC FLAG 0 (0-99); HEMATOCRIT 34.9 % (40.0-51.0); HEMOGLOBIN 11.9 g/dL (13.7-17.5); LIPEMIA HEMOLYSIS FLAG 90 (0-99); MEAN CELL HEMOGLOBIN 29.9 pg (27.9-34.1); MEAN CELL HEMOGLOBIN CONCENTR. 34.1 g/dL (32.4-36.7); MEAN CELL VOLUME 87.7 fL (81.5-99.8); MEAN PLATELET VOLUME 11.8 fL (8.7-11.7); PLATELET CLUMPS FLAG 0 (0-99); PLATELET COUNT 79 10^3/uL (150-400); RED BLOOD CELL COUNT 3.98 10^6/uL (4.40-6.38); RED CELL DISTRIBUTION WIDTH 13.4 % (11.5-15.2)
[2016-12-30 04:45] LABS: LEFT SHIFT FLG 120 (0-99)
[2016-12-30 04:56] LABS: ANION GAP 8 mEq/L (8-16); CALCIUM 8.2 mg/dL (8.5-10.4); CARBON DIOXIDE 22 mEq/l (22-31); CHLORIDE 116 mEq/L (97-110); GLOMERULAR FILTRATION RATE > 60; GLUCOSE 64 mg/dL (70-100); POTASSIUM 4.7 mEq/L (3.5-5.2); SODIUM 146 mEq/L (134-144)
[2016-12-30 05:14] LABS: SCAN NEGATIVE
[2016-12-30] MEDS: fentaNYL 100 MCG/2 ML INJ IVP PRN ×6 (05:39→19:44)
[2016-12-30] MEDS: ceFAZolin 2 GM/DEXTROSE 100 ML IV SCH ×3 (05:41→22:01)
[2016-12-30] MEDS: HEPARIN 5,000 UNIT/0.5 ML SYR SC SCH ×2 (05:44→12:15)
--- NOTE | 2016-12-30 07:04 | SOAPPROG ---
SOAP Progress Note Assessment/Plan: POD #1: CABGx5 (FLORES-LAD, SVG-diag, seq SVG-OM1-OM2, SVG-PDA), LLAA, EVH LLE Severe 3VD, unstable angina s/p CABG x 5 - Wean dopamine as tolerated - AL/FC/CTs to remain - Heparin SQ/SCDs for DVT prophylaxis Acute blood loss anemia with thrombocytopenia - Stable without the need for blood product transfusions - Monitor platelets Acute post op respiratory insufficiency - Wean vent as tolerated Conduction disturbance during placement of TLC requiring CPR - No clinically signs of hypoxia - Currently in SR/AF with adequate BP - Pacer backup set to VVI with possible need for future PPM implantation Moderate MR, functional - Stable as per post-op ECHO - Mgmt as per CHF mgmt CHF, class III, combine systolic and diastolic dysfunction - Wean dopamine as tolerated - HF meds when appropriate Permanent atrial fibrillation - Will continue pre-op digoxin as appropriate and consider thromboprophylaxis for CHADS2 score of 5 Dysphagia with weight loss - Medical w/u negative for obstruction/CA - Swallow evaluation revealed mild esophageal motility DM, poorly controlled by HgbA1c of 11.8 - IM consult placed for eventual transition of insulin gtt to SQ insulin 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 Currently sedated on ventilator. Objective: Vital Signs Temp Pulse Resp BP Pulse Ox 37.2 C 98 19 131/66 H 98 12/30/16 06:00 12/30/16 06:00 12/30/16 06:00 12/30/16 06:00 12/30/16 06:00 Laboratory Results 12/30/16 04:07 12/30/16 04:07 12/29/16 12/30/16 12/31/16 05:59 05:59 05:59 Intake Total 600 1787 Output Total 600 1691 Balance 0 96 PT 14.1 SEC (12.0-15.0) 12/25/16 02:15 INR 1.10 (0.83-1.16) 12/25/16 02:15 Physical Exam - Physical Exam General Appearance: no apparent distress EENT: ET tube, No scleral icterus (R), No scleral icterus (L) Neck: normal inspection Respiratory: No respiratory distress Cardiac/Chest: regular rate, rhythm, irregularly irregular Abdomen: non-tender, soft, No distended Skin: normal color, warm/dry Extremities: pedal edema Neuro/Psych: no motor/sensory deficits ICD10 Worksheet Patient Problems: Problems Problem Status Onset Acute blood loss anemia Acute Chest pain Acute Elevated troponin Acute Mitral valve regurgitation Acute S/P CABG x 5 Acute ~12/29/16 CAD, multiple vessel Chronic Ischemic cardiomyopathy Chronic
[2016-12-30] MEDS ORDERED: DOPamine/DEXTROSE/250 ML BAG IV ONE (07:48)
[2016-12-30] MEDS ORDERED: D10W 250 ML PRN HYPOGLYCEMIA IV (08:00)
[2016-12-30] MEDS: niCARdipine/NACL 200 ML IV SCH (08:51)
[2016-12-30] MEDS ORDERED: DEXMEDETOMIDINE HCL 400 MCG in NS 100 ML IV SCH (09:00)
[2016-12-30] MEDS ORDERED: ASPIRIN 81 MG CHEWABLE TAB TUBE PRN (09:00)
[2016-12-30] MEDS: CHLORHEXIDINE GLUCONATE 15 ML UDL PO SCH ×2 (09:54→22:01)
[2016-12-30] MEDS: ASPIRIN 81 MG CHEWABLE TAB PO SCH (09:54)
[2016-12-30] MEDS: PANTOPRAZOLE SODIUM 40 MG TAB PO SCH (09:55)
[2016-12-30] MEDS: FAMOTIDINE 20 MG/NACL 50 ML IV SCH ×2 (10:02→19:45)
[2016-12-30] MEDS ORDERED: PROPOFOL/EMULSION 100 ML IV SCH (11:00)
[2016-12-30] MEDS ORDERED: ALBUMIN 5% 250 ML IV ONE (11:00)
[2016-12-30] MEDS ORDERED: FUROSEMIDE 20 MG/2 ML VIAL IVP ONE (16:30)
[2016-12-30] MEDS ORDERED: FUROSEMIDE 20 MG/2 ML VIAL ONE (16:55)
[2016-12-30 18:21] LABS: POTASSIUM 4.9 mEq/L (3.5-5.2)
[2016-12-30] MEDS: HYDROCODONE/APAP 5/325 TAB PO PRN (22:00)
--- NOTE | 2016-12-30 22:57 | CPEKG ---
Heart Rate: 102 RR Interval: 588 P-R Interval: 148 QRSD Interval: 164 QT Interval: 404 QTC Interval: 527 P [place]: -10 QRS [place]: -22 T Wave [place]: 166 EKG Severity - ABNORMAL ECG - EKG Impression: SINUS TACHYCARDIA EKG Impression: MULTIPLE ATRIAL PREMATURE COMPLEXES EKG Impression: LEFT BUNDLE BRANCH BLOCK Electronically Signed By: Juve Munoz 31-Dec-2016 07:43:06
--- NOTE | 2016-12-30 23:03 | GCON ---
[f rep st] CONSULTATION PULMONARY CRITICAL CARE CONSULTATION DATE OF CONSULTATION: 12/30/2016 REASON FOR CONSULTATION: Acute postoperative respiratory insufficiency following open heart surgery . HISTORY: The patient is a 76-year-old [place] national who lives with his family occasionally here. He was admitted on 12/24 with chest pain and found to have severe multivessel coronary artery dise ase. He was taken to the operating room yesterday and coronary artery bypass grafting x5 was perfor med. He had an internal mammary artery graft as well as a saphenous vein graft. He also had ligati on of the left atrial appendage. He was returned to the intensive care unit. Following surgery on dopamine. He could not be extubated postoperatively. He remains on the ventilator today, is waking up quite slowly. PAST MEDICAL HISTORY: Type 2 diabetes; hypertension; atrial fibrillation, on digoxin; history of we ight loss secondary to swallowing dysfunction, possibly secondary to reflux. He has been cleared by ENT. 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 PAST SURGICAL HISTORY: None. DRUG ALLERGIES: Erythromycin preparations. SOCIAL HISTORY: The patient is , with extended family here in this area. He is [place]ian-spea rand only. He is a recent resident of [place]. He has smoked on and off for many years. Significan t alcohol is reportedly negative. FAMILY HISTORY: Unobtainable. REVIEW OF SYSTEMS: Unobtainable from the patient. Per the patient's daughter, he has not ever been on oxygen or inhalers. She does not know if he has any breathing problems. Ejection fraction was noted to be approximately 20% by echo prior to surgery. There is a history of hyperlipidemia. PHYSICAL EXAMINATION: GENERAL: Reveals a gentleman who appears older than his stated age. He is o n the ventilator. He is weakly arousable and easily falls back to sleep. He is currently weaning o n CPAP. VITAL SIGNS: Blood pressure is 110/60, heart rate 85 with a paced rhythm primarily. He wi ll alternate between normal sinus and atrial fibrillation at times. FiO2 is 40%. Saturations are 9 9%. He is afebrile. CVP is 10. HEENT: Remarkable for an oral endotracheal tube and OG tube. Pup ils appear equal. NECK: Unremarkable for lymphadenopathy or thyromegaly. There is no evidence of jugular venous distention. PULMONARY: The chest reveals decreased breath sounds at the bases, left more so than right. There are no rhonchi. There are no wheezes or significant rales. HEART: Reg ular in rate and rhythm. There is a soft systolic murmur. Heart tones are somewhat distant postope ratively. Drains and tubes remain in place with decreasing bloody output. There are no air leaks. ABDOMEN. Soft and not obviously tender. Bowel sounds are diminished but present. A Akers cathete r is in place with good urine output. SCDs are in place. There is no significant edema. NEUROLOGI C: Nonfocal. He does move all extremities weakly in response to simple commands but easily falls b ack asleep. DATABASE: Chest x-ray shows lines and tubes to be in good position. The cardiac silhouette is bord gauri enlarged. There is left lower lobe atelectasis/infiltrate/effusion. Some hypoventilatory ch anges are noted. LABORATORY DATA: Arterial blood gas on the ventilator shows a pH of 7.35, pCO2 of 44, and pO2 of 95 on a respiratory rate of 16, tidal volume 600, and 5 of PEEP. Blood gas on a CPAP wean is pending. White blood cell count is 10,000, hematocrit 34.9, platelets are 79,000. Sodium is 143, potassium 4.7, CO2 of 22, BUN 17 with a creatinine of 1.0. Glucoses have ranged between 60 and 160. Calcium is 8.2. ASSESSMENT: 1. Acute postoperative respiratory insufficiency: This is secondary to atelectasis and sedation. He is slow to wake up postoperatively. He has been on low-dose Precedex, but this has been stopped. There is no evidence of pneumonia or significant secretions. As he wakes up, I believe it will be possible to get his endotracheal tube out today. 2. Status post open heart surgery with coronary artery bypass grafting x5. 3. Ischemic cardiomyopathy: Ejection fraction is approximately 20%. Hemodynamics at this point ar e stable. He is doing relatively well. Dopamine is being decreased. 4. Possible chronic obstructive pulmonary disease: He has been a smoker in the past; however, he h as not been on inhalers, has never required oxygen as far as we know, etc. CT scan done preoperativ joshua did not demonstrate emphysema. He did have some airways disease. Further characterization can be made postoperatively as an outpatient if needed. 5. History of hypertension, hyperlipidemia, and diabetes. 6. Metabolic: He has been on insulin drip for postop hyperglycemia. He is on appropriate replacem ent protocols for electrolytes. 7. Gastrointestinal prophylaxis: On pantoprazole. 8. Deep vein thrombosis prophylaxis: Subcu heparin will be started. PLAN AND RECOMMENDATIONS: The patient will be kept on the ventilator for now. As he wakes up, a mo re prolonged CPAP trial will be initiated. If he does acceptably with weaning parameters and a bloo d gas, than extubation will be considered. Current medications, otherwise, will be maintained. He will be lightly sedated with Precedex. This will be weaned as tolerated. Dopamine will be continue d as needed. Laboratory and x-ray will be followed. Cardiovascular status will continue to be walter tored closely in the postoperative setting. Further plans and recommendations will be made based on the patient's progress over the next 12-24 h ours. /[id number]/MODL
[2016-12-31] MEDS: HYDROCODONE/APAP 5/325 TAB PO PRN ×4 (00:11→21:24)
[2016-12-31] MEDS: HEPARIN 5,000 UNIT/0.5 ML SYR SC SCH ×2 (00:13→06:11)
[2016-12-31 05:14] LABS: % IMMATURE GRANULYOCYTES 0.3 % (0.0-1.1); ABSOLUTE IMMATURE GRANULOCYTES 0.04 10^3/uL (0.00-0.10); ADD DIFF? NO; ADD MORPH? NO; ADD SCAN? YES; ATYPICAL LYMPHOCYTE FLAG 0 (0-99); FRAGMENT RBC FLAG 0 (0-99); HEMATOCRIT 34.6 % (40.0-51.0); HEMOGLOBIN 11.2 g/dL (13.7-17.5); LIPEMIA HEMOLYSIS FLAG 80 (0-99); MEAN CELL HEMOGLOBIN 29.7 pg (27.9-34.1); MEAN CELL HEMOGLOBIN CONCENTR. 32.4 g/dL (32.4-36.7); MEAN CELL VOLUME 91.8 fL (81.5-99.8); MEAN PLATELET VOLUME 12.8 fL (8.7-11.7); PLATELET CLUMPS FLAG 0 (0-99); PLATELET COUNT 79 10^3/uL (150-400); RED BLOOD CELL COUNT 3.77 10^6/uL (4.40-6.38); RED CELL DISTRIBUTION WIDTH 14.3 % (11.5-15.2)
[2016-12-31 05:15] LABS: LEFT SHIFT FLG 190 (0-99)
[2016-12-31 05:29] LABS: ANION GAP 11 mEq/L (8-16); CALCIUM 8.3 mg/dL (8.5-10.4); CARBON DIOXIDE 22 mEq/l (22-31); CHLORIDE 110 mEq/L (97-110); CREATININE 1.5 mg/dL (0.7-1.3); GLOMERULAR FILTRATION RATE 46; GLUCOSE 170 mg/dL (70-100); POTASSIUM 5.2 mEq/L (3.5-5.2); SODIUM 143 mEq/L (134-144)
[2016-12-31 05:32] LABS: SCAN NEGATIVE
[2016-12-31] MEDS: ceFAZolin 2 GM/DEXTROSE 100 ML IV SCH (06:10)
--- NOTE | 2016-12-31 07:10 | SOAPPROG ---
SOAP Progress Note Assessment/Plan: POD #2: CABGx5 (FLORES-LAD, SVG-diag, seq SVG-OM1-OM2, SVG-PDA), LLAA, EVH LLE Severe 3VD, unstable angina s/p CABG x 5 - Transfer to PCU - ECHO this AM to evaluate LV - CTs to bulb suction, cordis out, FC/AL already out - Heparin SQ/SCDs for DVT prophylaxis Acute blood loss anemia with thrombocytopenia - Stable without the need for blood product transfusions - Monitor platelets Acute post op respiratory insufficiency with COPD secondary to cigarette abuse - Extubated without issues - Further COPD mgmt as per pulmonology as warranted Conduction disturbance during placement of TLC requiring CPR - Currently in SR/AF with adequate BP - Pacer backup set to VVI with possible need for future PPM implantation (Dr. Fountain to consult EP) Moderate MR, functional - Stable as per post-op ECHO - Mgmt as per CHF mgmt CHF, class III, combine systolic and diastolic dysfunction - Moderate fluid overload - Torsemide started this AM - Low-dose ACEi ordered Permanent atrial fibrillation - Will continue pre-op digoxin as appropriate and consider thromboprophylaxis for CHADS2 score of 5 Dysphagia with weight loss - Medical w/u negative for obstruction/CA - Swallow evaluation revealed mild esophageal motility - Tolerating PO without issues DM, poorly controlled by HgbA1c of 11.8 - Insulin gtt converted to ISS - IM consult placed for further mgmt ETOH abuse - No withdrawal issues during hospital stay - will continue to monitor CHIQUIS - Cr this AM 1.5 with K at normal-high level - rpt K this afternoon Subjective: Denies pain/SOB. Objective: Vital Signs Temp Pulse Resp BP Pulse Ox 36.9 C 94 22 H 128/65 H 94 12/31/16 06:00 12/31/16 06:00 12/31/16 06:00 12/31/16 06:00 12/31/16 06:00 Laboratory Results 12/31/16 05:00 12/31/16 05:00 12/30/16 12/31/16 01/01/17 05:59 05:59 05:59 Intake Total 1787 1815 Output Total 1691 1015 Balance 96 800 PT 14.1 SEC (12.0-15.0) 12/25/16 02:15 INR 1.10 (0.83-1.16) 12/25/16 02:15 Physical Exam - Physical Exam General Appearance: WD/WN, alert, no apparent distress EENT: No scleral icterus (R), No scleral icterus (L) Neck: normal inspection Respiratory: lungs clear, normal breath sounds, other (CXR: left sided effusion ), No respiratory distress Cardiac/Chest: regular rate, rhythm, irregularly irregular Abdomen: non-tender, soft, No distended Skin: normal color, warm/dry Extremities: pedal edema Neuro/Psych: no motor/sensory deficits, alert, normal mood/affect, oriented x 3 ICD10 Worksheet Patient Problems: Problems Problem Status Onset Acute blood loss anemia Acute Chest pain Acute Elevated troponin Acute Mitral valve regurgitation Acute S/P CABG x 5 Acute ~12/29/16 CAD, multiple vessel Chronic Ischemic cardiomyopathy Chronic
[2016-12-31] MEDS ORDERED: D50W 25 GM/50 ML SYR IVP PRN (07:38)
[2016-12-31] MEDS ORDERED: ACETAMINOPHEN 325 MG TAB PO PRN (07:43)
[2016-12-31] MEDS: ONDANSETRON 4 MG/2 ML VIAL IVP PRN (07:49)
[2016-12-31] MEDS: TORSEMIDE 20 MG TAB PO SCH ×2 (07:52→12:09)
[2016-12-31] MEDS: SENNOSIDES/DOCUSATE SODIUM TAB PO SCH ×2 (07:52→20:13)
[2016-12-31] MEDS: ASPIRIN 81 MG CHEWABLE TAB PO SCH (07:53)
[2016-12-31] MEDS: INSULIN LISPRO 100 UNIT/ML SC SCH ×3 (08:09→20:29)
[2016-12-31] MEDS ORDERED: LISINOPRIL 5 MG TAB PO SCH (09:00)
[2016-12-31] MEDS ORDERED: LISINOPRIL 2.5 MG TAB PO SCH (09:00)
[2016-12-31] MEDS: PANTOPRAZOLE SODIUM 40 MG TAB PO SCH (10:01)
[2016-12-31] MEDS: traMADol 50 MG TAB PO PRN ×3 (10:53→20:12)
[2016-12-31 12:59] LABS: HEMOGLOBIN A1C 10.8 % (4.0-6.0)
--- NOTE | 2016-12-31 13:18 | ECHO ---
[id number] + + [address] : : [place] [address] : : [phone] + + Adult Echocardiographic Report + + :Name: Francisco Javier FISH Date: 12/31/2016 08:37 AM : : Hospital Admission Number: [id number] Lo cation: 248: :: 1940 Gender: Male : :Age: 76 yrs Race: OTH : :History: Post CABG : + + MMode/2D Measurements \T\ Calculations IVSd: 1.2 cm LVIDd: 5.2 cm FS: 18.6 % LVLd ap4: 8.8 cm LVPWd: 1.4 cm LVIDs: 4.3 cm EDV(Teich): 132.4 mlEDV(MOD-sp4): 129.0 ml ESV(Teich): 81.8 ml LVLs ap4: 8.4 cm EF(Teich): 38.2 % ESV(MOD-sp4): 80.0 ml EF(MOD-sp4): 38.0 % SV(MOD-sp4): 49.0 ml Normal Measurement Values: + + :LVIDd (3.5-5.7cm) IVSd (0.6-1.1cm) LVPWd (0.6-1.1cm) Aortic Root (2.0-3.7cm)Left Atrium (1.5-4.0cm): :LV Vol(d) (76-115ml) LV Vol(s) (29-48ml) Ejec Fraction (50-65%)PV Samir (0.6- 1.2m/s) TV Samir (0.4-1.0m/s) : :MV E Samir (0.8-1.0m/s)MV A Samir (0.3-1.0m/s)LVOT Samir (0.7-1.2m/s) Asc Ao Samir ( 0.9-1.8m/s) : + + Left Ventricle The left ventricle is normal in size. There is mild concentric left ventricular hypertrophy. Ejection Fraction = 35%. Septal motion is consistent with post-operative state. Conclusion This is a limited echo to evaluate for LV function post CABG. There is mild concentric left ventricular hypertrophy. Ejection Fraction = 35%. Septal motion is consistent with post-operative state. Final Reading Physician: Ludin Moscoso signed on 12/31/2016 01:17 PM Ordering Physician: Tyler Holly
[2016-12-31 13:39] LABS: POTASSIUM 5.2 mEq/L (3.5-5.2)
[2016-12-31] MEDS ORDERED: fentaNYL 25 MCG PATCH TD ONE ×2 (17:00→20:00)
--- NOTE | 2016-12-31 17:16 | GCON ---
[f rep st] CONSULTATION MEDICINE CONSULTATION DATE OF CONSULTATION: 12/31/2016 CHIEF COMPLAINT: We were asked by the cardiovascular surgery team to consult regarding diabetes and blood sugar management. HISTORY OF PRESENT ILLNESS: Zora Khalil is a 76-year-old, Chinese- speaking male, with a history of diabetes, hypertension and atrial fibrillation who presented to the emergency department with several months of exertional chest pain. This was accompanied by dyspnea and radiation to his arms. Evaluation in the emergency department was concerning for acute coronary syndrome. Cardiology was consulted. He was taken to the [facility] the following morning by Dr. Juve Munoz and was found to have severe 3-vessel coronary artery disease with an ejection fraction of 15% and pulmonary hypertension. Coronary artery bypass grafting was recommended, in addition to medical therapy, and Dr. Fountain was consulted. He then underwent a 5-vessel CABG. His postop course was complicated by a slightly prolonged mechanical ventilation phase and he did require some dopamine in the intensive care unit, as well as a Precedex drip. On the day of consultation, he has since been weaned off pressors, extubated and is now recovering comfortably in the progressive care unit. He complains of some back pain. He denies chest pain, shortness of breath, fevers or cough. He has no abdominal pain or changes in his bowel or bladder habits. He has managed his diabetes in the outpatient setting with metformin, glyburide and Invokana. He is not a great historian but his family reports he had generally has poor blood sugar control. Per chart review, I note that, since his surgery, his blood sugars have actually been well controlled, mostly in the 100s. He did have a low blood sugar of 68 yesterday morning, although otherwise has not had any significant hyperglycemia or hypoglycemia. He does report decreased oral intake compared to his baseline. PAST MEDICAL HISTORY: 1. Diabetes. 2. Hypertension. 3. History of atrial fibrillation. 4. Diabetes, poorly controlled with a recent hemoglobin A1c of 11.8. 5. Hypertension. 6. Atrial fibrillation. 7. Possible COPD. 8. Tobacco abuse. 9. Alcohol abuse. PAST SURGICAL HISTORY: The patient is status post CABG. SOCIAL HISTORY: The patient is . His daughter and are present at the bedside. He is Chinese-speaking only. He denies recent alcohol intake though apparently has had a history of alcohol abuse. He has also been an active smoker. FAMILY HISTORY: Both parents are . REVIEW OF SYSTEMS: A 10-point review of systems was performed and is negative except as per HPI. PHYSICAL EXAMINATION: VITAL SIGNS: Temperature is 36.4, blood pressure 127/80 , heart rate 81, respiratory rate 24. He has been saturating in the mid 90s on 3 L of oxygen. GENERAL: The patient is a bit sleepy but awake, alert and oriented in no acute distress. HEENT: Head is atraumatic, normocephalic. Pupils equal, round, and reactive to light extra muscles intact. Oropharynx is clear. Mucous membranes are moist. NECK: Supple. There is no JVD. HEART: Irregularly irregular. LUNGS: Clear to auscultation with decreased air exchange. ABDOMEN: Soft, nondistended, nontender. EXTREMITIES: There is trace to 1+ lower extremity edema. NEUROLOGIC: Grossly nonfocal. LABORATORY DATA: CBC reveals a white blood cell count 11.8, hemoglobin 11.2, hematocrit 34.6, platelets are 79 down from 142. Basic metabolic panel is remarkable for potassium of 5.2, BUN 27, creatinine 1.5 up from 1.0 yesterday. Blood sugar 170. Hemoglobin A1c is 10.8. Chest x-ray this morning, personally reviewed and interpreted, shows worsening bibasilar atelectasis, left greater than right. EKG from yesterday is reviewed, shows sinus tachycardia with a heart rate of 102 and a left bundle branch block. ASSESSMENT AND PLAN: The patient is a 76-year-old male, who is admitted to the hospital with acute coronary syndrome and recently underwent a 5-vessel coronary artery bypass grafting performed by Dr. Fountain. He is now recovering in the progressive care unit with mild hypoxemia. Medicine is consulted to assist with diabetes management. 1. Diabetes mellitus, type 2. Overall he is poorly controlled with an admission hemoglobin A1c of 11.8. He is on 3 oral hypoglycemics as an outpatient and likely needs insulin therapy. However, since his surgery, given his decreased oral intake, his blood sugars are actually well controlled on his current regimen of dose-adjusted preprandial Humalog. We will continue to hold his metformin given his acute kidney injury. I also agree with holding his glyburide due to risk of hypoglycemia. He will be continued on his current therapy with sliding scale insulin and, as he recovers and his appetite improves , we may need to add some basal insulin. 2. Acute kidney injury. His creatinine is up to 1.5 from 1. This may be an acute tubular necrosis in the postoperative setting vs pre-renal. I will check a urine sodium and a urine osmolarity for further evaluation. He is being diuresed with torsemide and also received a dose of Lasix yesterday, which may have contributed to a prerenal picture. 3. Hypertension. His blood pressure is currently well controlled on low-dose lisinopril and diuretic therapy as above. 4. Atrial fibrillation. He is currently rate controlled on Digoxin, will send a Dig level. He has a CHADS-VASc score of 5. He is status post ligation of the left atrial appendage and is currently in sinus rhythm. Anticoagulation per Cardiovascular Surgery. Currently on ASA. 5. Ischemic cardiomyopathy with ejection fraction of 20%, status post 5-vessel coronary artery bypass graft. He did require pressors postoperatively and has since been weaned off, recovering well in the progressive care unit. He is postop day #2. On low dose Lisinopril, ASA, statin. Will defer addition of beta nataliia to his cardiovascular team as they deem appropriate. 6. Combined systolic diastolic heart failure. His admission weight was 70 kg. He is currently 80 kg. He is being diuresed with torsemide and p.r.n. Lasix. 7. Presumed chronic obstructive pulmonary disease. He has fairly good air exchange at this time. We will continue with p.r.n. DuoNeb. He should have outpatient pulmonary function testing for more definitive diagnosis. 8. Tobacco abuse. Cessation encouraged. 9. Alcohol abuse. There has been no evidence of withdrawal. 10. Acute blood loss anemia. His hemoglobin is stable, today at 11.2. There have been no transfusion needs. We will continue to monitor. 11. Thrombocytopenia. His platelets have dropped from 142 to 79,000; this was following heparin exposure during his coronary artery bypass graft procedure. I will send heparin-induced thrombocytopenia antibody. His heparin is currently being held. 12. Deep venous thrombosis prophylaxis. Pharmacologic therapy is held due to thrombocytopenia. Sequential compression devices are in place. 13. Code status: Patient is full code. 14. Disposition. Patient remains inpatient status. Thanks for this consultation. We will continue to follow his blood sugars closely. Please do not hesitate to contact Medicine Service for any questions or concerns. /[id number]/MODL MTDD
[2016-12-31] MEDS ORDERED: METOPROLOL TARTRATE 25 MG TAB PO SCH (21:00)
[2016-12-31 22:38] LABS: POTASSIUM 5.4 mEq/L (3.5-5.2)
[2016-12-31] MEDS ORDERED: INSULIN REGULAR HUMAN 100 UNIT/ML SC ONE (23:20)
[2016-12-31] MEDS ORDERED: CALCIUM CHLORIDE 1 GM/10 ML INJ IV ONE (23:20)
[2017-01-01 05:43] LABS: HEMATOCRIT 35.6 % (40.0-51.0); HEMOGLOBIN 11.4 g/dL (13.7-17.5); MEAN CELL HEMOGLOBIN 29.5 pg (27.9-34.1); MEAN CELL VOLUME 92.2 fL (81.5-99.8); RED BLOOD CELL COUNT 3.86 10^6/uL (4.40-6.38); RED CELL DISTRIBUTION WIDTH 14.6 % (11.5-15.2)
[2017-01-01 05:56] LABS: ANION GAP 11 mEq/L (8-16); CALCIUM 9.4 mg/dL (8.5-10.4); CARBON DIOXIDE 23 mEq/l (22-31); CHLORIDE 108 mEq/L (97-110); CREATININE 2.9 mg/dL (0.7-1.3); DIGOXIN 0.8 ng/mL (0.8-2.0); GLOMERULAR FILTRATION RATE 21; GLUCOSE 154 mg/dL (70-100); SODIUM 142 mEq/L (134-144)
[2017-01-01] MEDS ORDERED: SODIUM POLY SULF 15 GM/60 ML BOTTLE PO ONE (06:02)
[2017-01-01] MEDS ORDERED: NS 1,000 ML IV SCH ×2 (07:00→07:30)
[2017-01-01] MEDS ORDERED: NS 500 ML IV ONE (07:21)
--- NOTE | 2017-01-01 08:00 | SOAPPROG ---
SOAP Progress Note Assessment/Plan: POD #3: CABGx5 (FLORES-LAD, SVG-diag, seq SVG-OM1-OM2, SVG-PDA), LLAA, EVH LLE Severe 3VD, unstable angina s/p CABG x 5 - ECHO yesterday reveled improvement in LV function - CTs to remain on bulb suction, PW on VVI backup - SCDs for DVT prophylaxis, heparin on hold for thrombocytopenia Acute blood loss anemia with thrombocytopenia - Stable without the need for blood product transfusions - Monitor platelets Acute post op respiratory insufficiency with COPD secondary to cigarette abuse - Extubated without issues - Further COPD mgmt as per pulmonology as warranted Conduction disturbance during placement of TLC requiring CPR - Currently in SR/AF with adequate BP - Pacer backup set to VVI with possible need for future PPM implantation - Dr. Baron on board Moderate MR, functional - Stable as per post-op ECHO - Mgmt as per CHF mgmt CHF, class III, combine systolic and diastolic dysfunction with moderate fluid overload - HF meds when appropriate Permanent atrial fibrillation - Will continue pre-op digoxin as appropriate and consider thromboprophylaxis for CHADS2 score of 5 Dysphagia with weight loss - Medical w/u negative for obstruction/CA - Swallow evaluation revealed mild esophageal motility - Tolerating PO without issues DM, poorly controlled by HgbA1c of 11.8 - Insulin gtt converted to ISS - IM consult appreciated ETOH abuse - No withdrawal issues during hospital stay - will continue to monitor CHIQUIS to ARF - Oliguric, hyperkalemic, Cr 2.9 - likely secondary to low cardiac output - Dopamine started and fluid administered - Transferred to ICU for close monitoring Subjective: c/o feeling itchy. Pain under control. Objective: Vital Signs Temp Pulse Resp BP Pulse Ox 36.2 C 93 17 121/90 H 91 L 01/01/17 07:34 01/01/17 07:34 01/01/17 07:34 01/01/17 07:34 01/01/17 07:34 Laboratory Results 01/01/17 05:20 01/01/17 05:20 12/31/16 01/01/17 01/02/17 05:59 05:59 05:59 Intake Total 1815 1250 Output Total 1015 690 50 Balance 800 560 -50 PT 14.1 SEC (12.0-15.0) 12/25/16 02:15 INR 1.10 (0.83-1.16) 12/25/16 02:15 Physical Exam - Physical Exam General Appearance: mild distress EENT: No scleral icterus (R), No scleral icterus (L) Neck: normal inspection Respiratory: No respiratory distress Cardiac/Chest: regular rate, rhythm Abdomen: non-tender, soft, No distended Skin: normal color, warm/dry Extremities: pedal edema Neuro/Psych: motor weakness, sensory deficit ICD10 Worksheet Patient Problems: Problems Problem Status Onset Acute blood loss anemia Acute Acute renal failure Acute Chest pain Acute Elevated troponin Acute Mitral valve regurgitation Acute S/P CABG x 5 Acute ~12/29/16 CAD, multiple vessel Chronic Ischemic cardiomyopathy Chronic
[2017-01-01] MEDS: ONDANSETRON 4 MG/2 ML VIAL IVP PRN (08:04)
[2017-01-01] MEDS: PANTOPRAZOLE SODIUM 40 MG TAB PO SCH (08:15)
[2017-01-01] MEDS: INSULIN LISPRO 100 UNIT/ML SC SCH ×3 (08:22→19:23)
[2017-01-01] MEDS: ASPIRIN 81 MG CHEWABLE TAB PO SCH (08:22)
[2017-01-01] MEDS: SENNOSIDES/DOCUSATE SODIUM TAB PO SCH ×2 (08:23→21:35)
[2017-01-01] MEDS ORDERED: FUROSEMIDE 20 MG/2 ML VIAL ONE (08:46)
[2017-01-01 09:45] LABS: POTASSIUM 5.3 mEq/L (3.5-5.2)
--- NOTE | 2017-01-01 09:49 | HOSPPROG ---
Hospitalist Progress Note Assessment/Plan: #Uncontrolled DM: A1c 11%. Hold orals while here -sugars ranged from 114-182 -3 units SSI in last 24 hrs, will cont for now #CAD: s/p 5V-CABG. ASA, statin #Acute encephalopathy: at risk with age, ICU stay. Avoid central-acting meds. Encourage awake during day to maintain normal sleep cycle #Hyperkalemia: resolved #Decompensated systolic/diastolic HF: diuresis per CV surg. Will restart BB, ZACHARY -I when clinically stable #CHIQUIS: likely due to diuresis, poor perfusion. Dopamine started for renal perfusion #Tobacco abuse: #Suspected COPD: #Acute hypoxic resp failure: suspect underlying COPD. #Moderate MR: #Thrombocytopenia: did get heparin that is being held. HIT Ab pending #DVT ppx: SCDs We will cont to follow along, please call if questions Subjective: denies CP or SOB (with hourly sign language interpreter). Family states he is confused Objective: Vital Signs Temp Pulse Resp BP Pulse Ox 36.6 C 96 16 163/86 H 90 L 01/01/17 08:00 01/01/17 08:00 01/01/17 08:00 01/01/17 08:00 01/01/17 08:00 Laboratory Results 01/01/17 05:20 01/01/17 09:15 12/31/16 01/01/17 01/02/17 05:59 05:59 05:59 Intake Total 1815 1250 500 Output Total 1015 690 50 Balance 800 560 450 PT 14.1 SEC (12.0-15.0) 12/25/16 02:15 INR 1.10 (0.83-1.16) 12/25/16 02:15 - Physical Exam Constitutional: no apparent distress Eyes: PERRL Ears, Nose, Mouth, Throat: moist mucous membranes Cardiovascular: regular rate and rhythym, other (sternal incision healing well, drain in place) Respiratory: no respiratory distress Gastrointestinal: normoactive bowel sounds Genitourinary: no bladder fullness Skin: warm Musculoskeletal: full muscle strength Neurologic: other (alert to only to hospital) Psychiatric: encephalopathic ICD10 Worksheet Patient Problems: Problems Problem Status Onset Acute blood loss anemia Acute Acute renal failure Acute Chest pain Acute Elevated troponin Acute Mitral valve regurgitation Acute S/P CABG x 5 Acute ~12/29/16 CAD, multiple vessel Chronic Ischemic cardiomyopathy Chronic
[2017-01-01] MEDS ORDERED: FUROSEMIDE 40 MG/4 ML VIAL IVP ONE (10:15)
[2017-01-01 12:31] LABS: ANION GAP 9 mEq/L (8-16); CALCIUM 8.5 mg/dL (8.5-10.4); CARBON DIOXIDE 23 mEq/l (22-31); CHLORIDE 108 mEq/L (97-110); CREATININE 2.3 mg/dL (0.7-1.3); GLOMERULAR FILTRATION RATE 28; GLUCOSE 176 mg/dL (70-100); POTASSIUM 4.9 mEq/L (3.5-5.2); SODIUM 140 mEq/L (134-144)
--- NOTE | 2017-01-01 17:12 | PDINTPN ---
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 Left lower lobe postoperative atelectasis. Clinically doing well. Not unexpected. Possible COPD. Postop confusion, resolving. In part secondary to medications. Sedatives and opiates D/Zachariah. Pain control appears appropriate with Toradol. Renal insufficiency: Improving. Creatinine less afternoon compared to this morning. Will follow. Urine output is good. Volume overload, diuresing well today. DVT prophylaxis: Subcu heparin Plan: Continue present care in the intensive care unit. Follow laboratory, x- ray. Continue diuresis. Continue bronchopulmonary therapies. Subjective: doing well this afternoon. Feels better. Not much chest pain. Breathing still somewhat short. Does not have any mucus. Still no appetite. Objective: Vital Signs Temp Pulse Resp BP Pulse Ox 36.6 C 96 16 163/86 H 90 L 01/01/17 08:00 01/01/17 08:00 01/01/17 08:00 01/01/17 08:00 01/01/17 08:00 Laboratory Results 01/01/17 05:20 01/01/17 11:56 12/31/16 01/01/17 01/02/17 05:59 05:59 05:59 Intake Total 1815 1250 500 Output Total 1015 690 50 Balance 800 560 450 PT 14.1 SEC (12.0-15.0) 12/25/16 02:15 INR 1.10 (0.83-1.16) 12/25/16 02:15 CXR: Some hypoventilatory changes with left lower lobe atelectasis, possible small effusion. Lines and tubes in good position. Laboratory Tests 01/01/17 05:20 Digoxin 0.8 Physical Exam - Physical Exam General Appearance: alert, no apparent distress EENT: other ( Nasal cannula in place at 4 L) Neck: normal inspection ( no obvious jugular venous distension) Respiratory: lungs clear ( anteriorly), decreased breath sounds ( at the bases) , No rales ( no significant rales), No rhonchi ( no rhonchi or congestion), No wheezing Cardiac/Chest: regular rate, rhythm ( distant heart sounds), other ( chest/ mediastinal tubes x3 in place to bulb suction. Output decreasing), No gallop Abdomen: non-tender, soft, distended ( mild distension), No normal bowel sounds ( decreased, present) Male Genitalia: other ( Akers catheter in place. Good urine output.) Skin: normal color, warm/dry Extremities: pedal edema Neuro/Psych: no motor/sensory deficits ( Moves all extremities equally), No cognition abnormalities ICD10 Worksheet Patient Problems: Problems Problem Status Onset Acute renal failure Acute Mitral valve regurgitation Acute Acute blood loss anemia Acute S/P CABG x 5 Acute ~12/29/16 Ischemic cardiomyopathy Chronic CAD, multiple vessel Chronic Chest pain Acute Elevated troponin Acute
[2017-01-01 17:47] LABS: HEPARIN INDUCED ANTIBODY Negative (Negative); HEPARIN-PF4 IgG ANTIBODY ELISA < 0.075 OD (<0.400)
[2017-01-01 17:50] LABS: POTASSIUM 4.7 mEq/L (3.5-5.2)
[2017-01-01] MEDS: ATORVASTATIN CALCIUM 20 MG TAB PO SCH (19:29)
[2017-01-01] MEDS: EZETIMIBE 10 MG TAB PO SCH (19:29)
[2017-01-01 20:26] LABS: POTASSIUM 4.6 mEq/L (3.5-5.2)
[2017-01-01 21:07] LABS: ANION GAP 9 mEq/L (8-16); CALCIUM 8.5 mg/dL (8.5-10.4); CARBON DIOXIDE 22 mEq/l (22-31); CHLORIDE 108 mEq/L (97-110); CREATININE 1.8 mg/dL (0.7-1.3); GLOMERULAR FILTRATION RATE 37; GLUCOSE 128 mg/dL (70-100); SODIUM 139 mEq/L (134-144)
[2017-01-01] MEDS: IPRATROPIUM/ALBUTEROL 3 ML DEYVIAL IH SCH (21:18)
[2017-01-01] MEDS: HYDROCODONE/APAP 5/325 TAB PO PRN (21:35)
[2017-01-02 00:50] LABS: ANION GAP 8 mEq/L (8-16); CALCIUM 8.5 mg/dL (8.5-10.4); CARBON DIOXIDE 23 mEq/l (22-31); CHLORIDE 109 mEq/L (97-110); CREATININE 1.6 mg/dL (0.7-1.3); GLOMERULAR FILTRATION RATE 42; GLUCOSE 131 mg/dL (70-100); POTASSIUM 4.5 mEq/L (3.5-5.2); SODIUM 140 mEq/L (134-144)
[2017-01-02 04:20] LABS: HEMATOCRIT 32.8 % (40.0-51.0); HEMOGLOBIN 10.7 g/dL (13.7-17.5); MEAN CELL HEMOGLOBIN 29.4 pg (27.9-34.1); MEAN CELL HEMOGLOBIN CONCENTR. 32.6 g/dL (32.4-36.7); MEAN CELL VOLUME 90.1 fL (81.5-99.8); RED BLOOD CELL COUNT 3.64 10^6/uL (4.40-6.38); RED CELL DISTRIBUTION WIDTH 14.1 % (11.5-15.2)
[2017-01-02 04:29] LABS: POTASSIUM 4.3 mEq/L (3.5-5.2)
[2017-01-02] MEDS: IPRATROPIUM/ALBUTEROL 3 ML DEYVIAL IH SCH ×4 (05:27→20:39)
--- NOTE | 2017-01-02 07:29 | SOAPPROG ---
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 Baron on board Moderate MR, functional - Mgmt as per CHF mgmt CHF, class III, combine systolic and diastolic dysfunction with moderate fluid overload - HF meds when appropriate Permanent atrial fibrillation - Will consider pre-op digoxin and thromboprophylaxis for CHADS2 score of 5 as appropriate Dysphagia with weight loss - Medical w/u negative for obstruction/CA - Swallow evaluation revealed mild esophageal motility - Tolerating PO without issues DM, poorly controlled by HgbA1c of 11.8 - Insulin gtt converted to ISS - IM consult appreciated ETOH abuse - No withdrawal issues during hospital stay - will continue to monitor CHIQUIS to ARF - Cr 1.6 this morning with normal K and good UOP - Continue dopamine for renal perfusion Subjective: Pt speaks Vietnamese and family bedside for translation. Pt denies pain/SOB. As per family, pt is confused as his whereabouts. Objective: Vital Signs Temp Pulse Resp BP Pulse Ox 37.3 C 88 21 H 144/91 H 95 01/02/17 04:00 01/02/17 06:00 01/02/17 06:00 01/02/17 06:00 01/02/17 06:00 Laboratory Results 01/02/17 04:10 01/02/17 04:10 01/01/17 01/02/17 01/03/17 05:59 05:59 05:59 Intake Total 1250 3180.8 Output Total 690 2765 Balance 560 415.8 PT 14.1 SEC (12.0-15.0) 12/25/16 02:15 INR 1.10 (0.83-1.16) 12/25/16 02:15 Physical Exam - Physical Exam General Appearance: alert, no apparent distress EENT: No scleral icterus (R), No scleral icterus (L) Neck: normal inspection Respiratory: No respiratory distress Cardiac/Chest: irregularly irregular Abdomen: non-tender, soft, No distended Skin: normal color, warm/dry Extremities: pedal edema Neuro/Psych: no motor/sensory deficits, alert, disoriented to place, disoriented to time ICD10 Worksheet Patient Problems: Problems Problem Status Onset Acute blood loss anemia Acute Acute renal failure Acute Chest pain Acute Elevated troponin Acute Mitral valve regurgitation Acute S/P CABG x 5 Acute ~12/29/16 CAD, multiple vessel Chronic Ischemic cardiomyopathy Chronic
[2017-01-02] MEDS: INSULIN LISPRO 100 UNIT/ML SC SCH ×3 (07:40→18:28)
[2017-01-02 08:19] LABS: ANION GAP 10 mEq/L (8-16); CALCIUM 8.2 mg/dL (8.5-10.4); CARBON DIOXIDE 23 mEq/l (22-31); CHLORIDE 109 mEq/L (97-110); CREATININE 1.3 mg/dL (0.7-1.3); GLOMERULAR FILTRATION RATE 54; GLUCOSE 137 mg/dL (70-100); POTASSIUM 4.3 mEq/L (3.5-5.2); SODIUM 142 mEq/L (134-144)
[2017-01-02] MEDS: SENNOSIDES/DOCUSATE SODIUM TAB PO SCH ×2 (08:23→21:06)
[2017-01-02] MEDS: PANTOPRAZOLE SODIUM 40 MG TAB PO SCH (08:24)
[2017-01-02] MEDS: ASPIRIN 81 MG CHEWABLE TAB PO SCH (08:24)
--- NOTE | 2017-01-02 09:14 | HOSPPROG ---
Hospitalist Progress Note Assessment/Plan: #Uncontrolled DM: A1c 11%. Hold orals while here -good control of sugars now on SSI, may need glargine once eating #CAD: s/p 5V-CABG. ASA, statin. Hep on hold with low platelets #Acute encephalopathy: at risk with age, ICU stay. Avoid central-acting meds. Encourage awake during day to maintain normal sleep cycle #Hyperkalemia: resolved #Decompensated systolic/diastolic HF: cont diuresis per CV surg. Will restart BB , ZACHARY-I when clinically stable #CHIQUIS: likely due to diuresis, poor perfusion. Dopamine started for renal perfusion #Tobacco abuse: #Suspected COPD: per pulm #Acute hypoxic resp failure: suspect underlying COPD. #Moderate MR: #Thrombocytopenia: did get heparin that is being held. HIT Ab negative #DVT ppx: SCDs We will cont to follow along, please call if questions Subjective: mild SOB this morning Objective: Vital Signs Temp Pulse Resp BP Pulse Ox 37.3 C 88 23 H 134/72 H 98 01/02/17 04:00 01/02/17 08:00 01/02/17 08:00 01/02/17 08:00 01/02/17 08:00 Laboratory Results 01/02/17 04:10 01/02/17 07:37 01/01/17 01/02/17 01/03/17 05:59 05:59 05:59 Intake Total 1250 3180.8 Output Total 690 2765 Balance 560 415.8 PT 14.1 SEC (12.0-15.0) 12/25/16 02:15 INR 1.10 (0.83-1.16) 12/25/16 02:15 - Physical Exam Constitutional: no apparent distress Eyes: PERRL Ears, Nose, Mouth, Throat: moist mucous membranes Cardiovascular: regular rate and rhythym, edema, other (surgical incision, C/D/ I. [address]) Respiratory: no respiratory distress Gastrointestinal: normoactive bowel sounds Genitourinary: no bladder fullness Skin: warm Musculoskeletal: full muscle strength Neurologic: other (alert to hospital, [place], not date) Psychiatric: encephalopathic ICD10 Worksheet Patient Problems: Problems Problem Status Onset Acute blood loss anemia Acute Acute renal failure Acute Chest pain Acute Elevated troponin Acute Mitral valve regurgitation Acute S/P CABG x 5 Acute ~12/29/16 CAD, multiple vessel Chronic Ischemic cardiomyopathy Chronic
[2017-01-02] MEDS: traMADol 50 MG TAB PO PRN ×2 (11:39→18:27)
[2017-01-02] MEDS: TORSEMIDE 20 MG TAB PO SCH (12:27)
--- NOTE | 2017-01-02 13:02 | PDINTPN ---
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 Hemodynamics stable, doing well. Left lower lobe postoperative atelectasis. Clinically doing well. Not unexpected. No evidence of pneumonia Possible COPD. On duo nebs, bronchopulmonary therapies. Postop confusion, resolving. In part secondary to medications, with some sundowning at night. Sedatives and opiates D/Zachariah. Pain control fine with Toradol. Renal insufficiency: Improving. Creatinine and BUN improving. Urine output is good. Volume overload, diuresing well with Torsemide. Still up about 6 kilos DVT prophylaxis: Subcu heparin Plan: Continue present care in the intensive care unit. Follow laboratory, x- ray. Continue diuresis. Continue bronchopulmonary therapies. Increase activity and ambulation as tolerated. 30 minutes of critical care time spent with the patient. Discussed with the patient's family, nursing, the ICU multi disciplinary team. Subjective: Doing well. Up in chair. Family at bedside. Denies significant pain. Denies shortness of breath. Oriented. Objective: Vital Signs Temp Pulse Resp BP Pulse Ox 37.0 C 77 20 136/77 H 99 01/02/17 12:00 01/02/17 12:00 01/02/17 12:00 01/02/17 12:00 01/02/17 12:00 Laboratory Results 01/02/17 04:10 01/02/17 07:37 01/01/17 01/02/17 01/03/17 05:59 05:59 05:59 Intake Total 1250 3180.8 126 Output Total 690 2765 260 Balance 560 415.8 -134 PT 14.1 SEC (12.0-15.0) 12/25/16 02:15 INR 1.10 (0.83-1.16) 12/25/16 02:15 CXR: Hypoventilatory changes. Bibasilar atelectasis, left greater than right , with retrocardiac density. Effusion likely present on the left. Some changes consistent with congestive heart failure. Lines in good position. Physical Exam - Physical Exam General Appearance: alert, no apparent distress EENT: PERRL/EOMI, other ( Nasal cannula at 2 L) Neck: normal inspection ( no obviou JVD) Respiratory: lungs clear, decreased breath sounds ( at the bases), rales ( few rales bilaterally, left greater than right), No rhonchi, No wheezing Cardiac/Chest: regular rate, rhythm, systolic murmur, No gallop Abdomen: non-tender, distended ( mild distention present), other ( no BM), No normal bowel sounds ( decreased, present) Male Genitalia: other ( catheter in place, good urine output) Skin: normal color, warm/dry Extremities: pedal edema ( trace +) Neuro/Psych: no motor/sensory deficits, No cognition abnormalities ICD10 Worksheet Patient Problems: Problems Problem Status Onset Acute blood loss anemia Acute Acute renal failure Acute Chest pain Acute Elevated troponin Acute Mitral valve regurgitation Acute S/P CABG x 5 Acute ~12/29/16 CAD, multiple vessel Chronic Ischemic cardiomyopathy Chronic
[2017-01-02 19:03] LABS: POTASSIUM 3.8 mEq/L (3.5-5.2)
[2017-01-02] MEDS ORDERED: POTASSIUM CL 20 MEQ TAB PO ONE (20:25)
[2017-01-02] MEDS: ATORVASTATIN CALCIUM 20 MG TAB PO SCH (21:05)
[2017-01-02] MEDS: EZETIMIBE 10 MG TAB PO SCH (21:06)
[2017-01-03] MEDS: traMADol 50 MG TAB PO PRN ×4 (02:22→20:28)
[2017-01-03] MEDS: IPRATROPIUM/ALBUTEROL 3 ML DEYVIAL IH SCH ×4 (04:47→21:45)
[2017-01-03 05:14] LABS: HEMATOCRIT 31.7 % (40.0-51.0); HEMOGLOBIN 10.5 g/dL (13.7-17.5); MEAN CELL HEMOGLOBIN 29.6 pg (27.9-34.1); MEAN CELL HEMOGLOBIN CONCENTR. 33.1 g/dL (32.4-36.7); MEAN CELL VOLUME 89.3 fL (81.5-99.8); RED BLOOD CELL COUNT 3.55 10^6/uL (4.40-6.38); RED CELL DISTRIBUTION WIDTH 13.7 % (11.5-15.2)
[2017-01-03 05:41] LABS: ANION GAP 8 mEq/L (8-16); CALCIUM 8.2 mg/dL (8.5-10.4); CARBON DIOXIDE 27 mEq/l (22-31); CHLORIDE 106 mEq/L (97-110); CREATININE 1.1 mg/dL (0.7-1.3); GLOMERULAR FILTRATION RATE > 60; GLUCOSE 123 mg/dL (70-100); POTASSIUM 4.2 mEq/L (3.5-5.2); SODIUM 141 mEq/L (134-144)
--- NOTE | 2017-01-03 07:37 | SOAPPROG ---
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 - Extubated without issues - Further COPD mgmt as per pulmonology as warranted Conduction disturbance during placement of TLC requiring CPR - Currently in SR/AF with adequate BP - Beta-nataliia started today Moderate MR, functional - Mgmt as per CHF mgmt CHF, class III, combine systolic and diastolic dysfunction with moderate fluid overload - Continue Torsemide daily Permanent atrial fibrillation - Thromboprophylaxis for CHADS2 score of 5 deferred d/t potential complication with anticoagulation Dysphagia with weight loss - Medical w/u negative for obstruction/CA - Swallow evaluation revealed mild esophageal motility - Tolerating PO without issues DM, poorly controlled by HgbA1c of 11.8 - Currently on ISS with minimal needs - IM consult appreciated, awaiting recommendations for discharge ETOH abuse - No withdrawal issues during hospital stay - will continue to monitor CHIQUIS to ARF - Resolved Disposition - Possible home Wednesday without services Subjective: Feels well this morning. Family bedside. Plan is for pt to be discharge to son' s home. Objective: Vital Signs Temp Pulse Resp BP Pulse Ox 37.1 C 80 18 141/71 H 99 01/03/17 04:00 01/03/17 04:51 01/03/17 04:51 01/03/17 04:00 01/03/17 04:00 Laboratory Results 01/03/17 05:00 01/03/17 05:00 01/02/17 01/03/17 01/04/17 05:59 05:59 05:59 Intake Total 3180.8 1030 Output Total 2765 2970 Balance 415.8 -1940 PT 14.1 SEC (12.0-15.0) 12/25/16 02:15 INR 1.10 (0.83-1.16) 12/25/16 02:15 Physical Exam - Physical Exam General Appearance: WD/WN, alert, no apparent distress EENT: No scleral icterus (R), No scleral icterus (L) Neck: normal inspection Respiratory: No respiratory distress Cardiac/Chest: regular rate, rhythm Abdomen: non-tender, soft, No distended Skin: normal color, warm/dry Extremities: pedal edema Neuro/Psych: no motor/sensory deficits, alert, normal mood/affect, oriented x 3 ICD10 Worksheet Patient Problems: Problems Problem Status Onset Acute blood loss anemia Acute Acute renal failure Acute Chest pain Acute Elevated troponin Acute Mitral valve regurgitation Acute S/P CABG x 5 Acute ~12/29/16 CAD, multiple vessel Chronic Ischemic cardiomyopathy Chronic
--- NOTE | 2017-01-03 08:22 | HOSPPROG ---
Hospitalist Progress Note Assessment/Plan: #Uncontrolled DM: A1c 11%. Hold orals while here -good control of sugars now on SSI, may need glargine #CAD: s/p 5V-CABG. ASA, statin. Hep on hold with low platelets #Acute encephalopathy: at risk with age, ICU stay. Avoid central-acting meds. Encourage awake during day to maintain normal sleep cycle #Hyperkalemia: resolved #Decompensated systolic/diastolic HF: cont diuresis per CV surg. BB. ZACHARY-I when clinically stable #CHIQUIS: resolved #Tobacco abuse: counseled on cessation #Suspected COPD: per pulm #Acute hypoxic resp failure: suspect underlying COPD. #Moderate MR: #Thrombocytopenia: did get heparin that is being held. HIT Ab negative #DVT ppx: SCDs We will cont to follow along, please call if questions Subjective: no complaints overnight Objective: Vital Signs Temp Pulse Resp BP Pulse Ox 37.1 C 80 18 141/71 H 99 01/03/17 04:00 01/03/17 04:51 01/03/17 04:51 01/03/17 04:00 01/03/17 04:00 Laboratory Results 01/03/17 05:00 01/03/17 05:00 01/02/17 01/03/17 01/04/17 05:59 05:59 05:59 Intake Total 3180.8 1030 Output Total 2765 2970 Balance 415.8 -1940 PT 14.1 SEC (12.0-15.0) 12/25/16 02:15 INR 1.10 (0.83-1.16) 12/25/16 02:15 - Physical Exam Constitutional: no apparent distress Eyes: PERRL Ears, Nose, Mouth, Throat: moist mucous membranes Cardiovascular: regular rate and rhythym, other ([address] Surigical incision CDI) Respiratory: no respiratory distress Gastrointestinal: normoactive bowel sounds Genitourinary: no bladder fullness Skin: warm Musculoskeletal: full muscle strength Neurologic: CN II-XII Intact ICD10 Worksheet Patient Problems: Problems Problem Status Onset Acute blood loss anemia Acute Acute renal failure Acute Chest pain Acute Elevated troponin Acute Mitral valve regurgitation Acute S/P CABG x 5 Acute ~12/29/16 CAD, multiple vessel Chronic Ischemic cardiomyopathy Chronic
[2017-01-03] MEDS: SENNOSIDES/DOCUSATE SODIUM TAB PO SCH ×2 (08:40→20:29)
[2017-01-03] MEDS: POTASSIUM CL 20 MEQ TAB PO SCH (08:40)
[2017-01-03] MEDS: ASPIRIN 81 MG CHEWABLE TAB PO SCH (08:40)
[2017-01-03] MEDS: PANTOPRAZOLE SODIUM 40 MG TAB PO SCH (08:40)
[2017-01-03] MEDS: TORSEMIDE 20 MG TAB PO SCH (08:40)
[2017-01-03] MEDS: INSULIN LISPRO 100 UNIT/ML SC SCH ×3 (08:41→18:39)
[2017-01-03] MEDS: METOPROLOL TARTRATE 25 MG TAB PO SCH ×2 (08:44→20:29)
--- NOTE | 2017-01-03 13:22 | PDINTPN ---
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 Hemodynamics stable, doing well. Postoperative atelectasis. Clinically doing well. Not unexpected. No evidence of pneumonia. Cannot exclude high right hemidiaphragm. Possible COPD. On duo nebs, bronchopulmonary therapies. Postop confusion, resolving. In part secondary to medications, with some sundowning at night. Pain control fine. Renal insufficiency: Improving. Creatinine and BUN improved. Urine output is good. Volume overload, diuresing well with Torsemide. Still up about 5 kilos DVT prophylaxis: Subcu heparin Plan: Continue present care. Can transfer to PCU. Follow laboratory, x-ray intermittently. Continue diuresis. Continue bronchopulmonary therapies. Increase activity and ambulation as tolerated. 25 minutes of critical care time spent with the patient. Discussed with the patient's family, nursing, the ICU multi disciplinary team. Subjective: Improved, up in chair, no complaints. Alert, not confused Objective: Vital Signs Temp Pulse Resp BP Pulse Ox 36.7 C 82 22 H 127/77 H 96 01/03/17 12:54 01/03/17 12:54 01/03/17 12:54 01/03/17 12:54 01/03/17 12:54 Laboratory Results 01/03/17 05:00 01/03/17 05:00 01/02/17 01/03/17 01/04/17 05:59 05:59 05:59 Intake Total 3180.8 1030 240 Output Total 2765 2970 430 Balance 415.8 -1940 -190 PT 14.1 SEC (12.0-15.0) 12/25/16 02:15 INR 1.10 (0.83-1.16) 12/25/16 02:15 CXR: Bibasilar infiltrates/atelectasis persist. Query high right hemidiaphragm verses atelectasis above the diaphragm. If this persists he may need a sniff test. Physical Exam - Physical Exam General Appearance: alert, no apparent distress, other (In chair) EENT: other (Nasal cannula at 2 L) Neck: normal inspection (No JVD. Central line in place) Respiratory: lungs clear (Anteriorly), decreased breath sounds (At the bases with few rales), No rhonchi, No pleural rub Cardiac/Chest: regular rate, rhythm (Distant heart tones, soft systolic murmur) , other (Incision looks good) Abdomen: normal bowel sounds, non-tender, soft Male Genitalia: other (Akers catheter out) Skin: normal color, warm/dry Extremities: pedal edema (Trace +) Neuro/Psych: no motor/sensory deficits, No cognition abnormalities ICD10 Worksheet Patient Problems: Problems Problem Status Onset Acute renal failure Acute Mitral valve regurgitation Acute Acute blood loss anemia Acute S/P CABG x 5 Acute ~12/29/16 Ischemic cardiomyopathy Chronic CAD, multiple vessel Chronic Chest pain Acute Elevated troponin Acute
[2017-01-03] MEDS: HEPARIN 5,000 UNIT/0.5 ML SYR SC SCH ×2 (14:26→20:28)
--- NOTE | 2017-01-03 15:19 | WOCRNPDOC ---
WOCRN Advanced Assessment Note - Skin Integrity Problem, Advanced Assess Coccyx Blister Dressing Type: Allevyn Life Dressing Description: Clean/Dry, Intact Exudate Amount: Scant Exudate Characteristic(s): Serous Integumentary Issue Intervention: Visualized Under Dressing Zari Wound Tissue: Erythema, Non-blanching, Intact Zari Wound Swelling: Mild Wound Bed Constitution: Draining Serous Blister Wound Edges: Well Defined Site Odor: None Site Measurement - Head-to-Toe Length X Width X Depth (cm): 1.7 x 1 x 0.4 cm blister protruding height Skin Integrity Problem Comment: Small amount of clear serous drainage seeping from roofed blister on coccyx. Non-blanching erythema surrounding. Site has an appearance suggestive of tissue shearing with repositioning. Per report accompanying consult request, site was appropriately prepped with [place]kin protectant prior to placement of Allevyn sacrum dressing. With NELIDA Leos, initiated turns with a right-tilt. A waffle air cushion was placed in room for patient's use when up to chair, and a pump was placed on the Accumax mattress. All care and plan of care was explained to patient and family in [place].
[2017-01-03] MEDS: ATORVASTATIN CALCIUM 20 MG TAB PO SCH (20:28)
[2017-01-03] MEDS: EZETIMIBE 10 MG TAB PO SCH (20:29)
[2017-01-04] MEDS: traMADol 50 MG TAB PO PRN ×2 (04:02→05:29)
[2017-01-04] MEDS: HEPARIN 5,000 UNIT/0.5 ML SYR SC SCH ×2 (05:29→14:35)
[2017-01-04] MEDS: HYDROCODONE/APAP 5/325 TAB PO PRN ×3 (06:02→21:56)
[2017-01-04] MEDS: IPRATROPIUM/ALBUTEROL 3 ML DEYVIAL IH SCH ×4 (06:13→21:41)
--- NOTE | 2017-01-04 07:32 | SOAPPROG ---
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 - Extubated without issues - Further COPD mgmt as per pulmonology as warranted Conduction disturbance during placement of TLC requiring CPR - One episode of bradycardia < 50 since starting metoprolol - will re-consult EP for PPM consideration Moderate MR, functional - Mgmt as per CHF mgmt CHF, class III, combine systolic and diastolic dysfunction with moderate fluid overload - Continue Torsemide daily Permanent atrial fibrillation - Thromboprophylaxis for CHADS2 score of 5 deferred d/t potential complications (fall risk) with anticoagulation Dysphagia with weight loss - Medical w/u negative for obstruction/CA - Swallow evaluation revealed mild esophageal motility - Tolerating PO without issues DM, poorly controlled by HgbA1c of 11.8 - Currently on ISS with minimal needs - IM consult appreciated, awaiting recommendations for discharge ETOH abuse, remote - Stable CHIQUIS to ARF - Resolved Disposition - Plan for once rhythm issues sorted out Subjective: Has had back pain resolved with PO narcotics. No CP/SOB. Objective: Vital Signs Temp Pulse Resp BP Pulse Ox 36.8 C 80 16 139/86 H 92 01/04/17 04:00 01/04/17 06:14 01/04/17 06:14 01/04/17 04:00 01/04/17 06:14 Laboratory Results 01/03/17 05:00 01/03/17 05:00 01/03/17 01/04/17 01/05/17 05:59 05:59 05:59 Intake Total 1030 590 Output Total 2970 1235 Balance -1940 -645 PT 14.1 SEC (12.0-15.0) 12/25/16 02:15 INR 1.10 (0.83-1.16) 12/25/16 02:15 Physical Exam - Physical Exam General Appearance: WD/WN, alert, no apparent distress EENT: No scleral icterus (R), No scleral icterus (L) Neck: normal inspection Respiratory: No respiratory distress Cardiac/Chest: regular rate, rhythm, bradycardia Abdomen: non-tender, soft, No distended Skin: normal color, warm/dry Extremities: No pedal edema Neuro/Psych: no motor/sensory deficits, alert, normal mood/affect, oriented x 3 ICD10 Worksheet Patient Problems: Problems Problem Status Onset Acute blood loss anemia Acute Acute renal failure Acute Chest pain Acute Elevated troponin Acute Mitral valve regurgitation Acute S/P CABG x 5 Acute ~12/29/16 CAD, multiple vessel Chronic Ischemic cardiomyopathy Chronic
[2017-01-04] MEDS ORDERED: MAGNESIUM CITRATE 300 ML BOTTLE PO ONE (07:37)
[2017-01-04] MEDS: PANTOPRAZOLE SODIUM 40 MG TAB PO SCH (08:16)
[2017-01-04] MEDS: METOPROLOL TARTRATE 25 MG TAB PO SCH ×2 (08:16→21:55)
[2017-01-04] MEDS: INSULIN LISPRO 100 UNIT/ML SC SCH ×3 (08:55→21:56)
[2017-01-04] MEDS ORDERED: LISINOPRIL 5 MG TAB PO SCH (09:00)
[2017-01-04] MEDS ORDERED: LIDOCAINE 1% 5 ML SDV IF ONE ×2 (09:33→09:45)
[2017-01-04] MEDS ORDERED: NS 1,000 ML IV SCH (10:04)
[2017-01-04] MEDS ORDERED: diphenhydrAMINE 25 MG CAP PO ONE (10:04)
[2017-01-04] MEDS ORDERED: ceFAZolin 2 GM/DEXTROSE 100 ML IV ONE ×2 (10:04→10:45)
[2017-01-04] MEDS ORDERED: BACITRACIN IRRIGATION/NS 50,000 UNITS/1,000 ML BTL IRR ONE (10:04)
[2017-01-04] MEDS ORDERED: DIAZEPAM 5 MG TAB PO ONE (10:04)
[2017-01-04] MEDS: ASPIRIN 81 MG CHEWABLE TAB PO SCH (10:56)
[2017-01-04] MEDS: SENNOSIDES/DOCUSATE SODIUM TAB PO SCH (10:57)
[2017-01-04] MEDS: POTASSIUM CL 20 MEQ TAB PO SCH (10:57)
[2017-01-04] MEDS: TORSEMIDE 20 MG TAB PO SCH (10:57)
[2017-01-04] MEDS ORDERED: LIDOCAINE 1% 300 MG/30 ML SDV ONE (11:05)
[2017-01-04] MEDS ORDERED: fentaNYL 100 MCG/2 ML INJ ONE (11:06)
[2017-01-04] MEDS ORDERED: MIDAZOLAM 2 MG/2 ML VIAL ONE (11:06)
[2017-01-04] MEDS ORDERED: BUPIVACAINE 0.5% 30 ML SDV ONE (11:06)
[2017-01-04] MEDS ORDERED: IOPAMIDOL (ISOVUE-300) 100 ML BTL ONE (11:24)
--- NOTE | 2017-01-04 13:04 | EPPROC ---
Electrophysiology Procedure Note: PROCEDURE PERFORMED: 1. Implantation of an A/V Pacemaker 2. Subclavian vein angiography 3. Fluoroscopy INDICATION: LBBB Asystole requiring CPR during CABG LVEF post CABG is 35%, will reassess at 6 weeks post implant and if LVEF remains 35% or less, consider upgrade to BiVICD PROCEDURE NOTE: Patient presented to the cardiac catheterization laboratory in a fasting, post absorptive state . EP RN administered sedation. The left infraclavicular area was prepped and draped in the usual sterile fashion. Lidocaine plus bupivacaine was used for local anesthesia. Left subclavian venography was performed by injection of iodinated contrast into the left antecubital vein. This was done to assure patency of the vein and also to assess for any anatomical aberrations. Using a combination of blunt and sharp dissection and electrocautery, the dissection was carried down to the prepectoral fascia. A pocket was made in this anatomical plane. All bleeding was controlled with electrocautery. The pocket was packed with gauze soaked in antibiotic solution. Fluoroscopy was utilized during the entire procedure for venous access and placement of the leads. Using a direct stick technique the left extrathoracic axillary vein was accessed with 2 sticks using the modified Seldinger technique. Placement of the guidewires into the venous system was confirmed by low-pressure blood return and also by visualizing the guidewires advancing into the inferior vena cava. A purse string suture was applied around the guidewires. Two #7 Burkinan sheaths were advanced under fluoroscopic guidance over the guidewire. An active fixation ventricular lead was advanced into the right ventricular apex and screwed in place. An active fixation atrial lead was advanced into the right atrial appendage and screwed in place. The peel away sheaths were removed. Pacing thresholds, sensing parameters and lead impedances were measured. There was no diaphragmatic stimulation at maximum output. The leads were sutured to the prepectoral fascia with 3 nonabsorbable sutures each. The pocket was again inspected for any bleeding. The leads were attached to the pacemaker securely. The pacemaker was inserted into the pocket and secured in place with a nonabsorbable suture. Fluoroscopy was performed in LÓPEZ and BELINDA planes to verify right-sided placement of the leads. Also fluoroscopy of the pacemaker pocket was performed. The pacemaker pocket was closed in 3 layers with absorbable monocryl sutures and lew. Appropriate dressing was applied. The patient left the cardiac catheterization laboratory in stable condition. Serial Numbers: 1. Device: Biotronik Edora 8 DRT SN [id number] 2. Atrial Lead: Biotronik Solia S 45 SN [id number] 3. Ventricular Lead: Biotronik Solia S 53 SN [id number] Stimulation Thresholds & Impedance Measurements: 1. Atrial Lead P 1.2 mV 0.7 V 0.4 ms 429 ohm 2. Ventricular Lead R 14.6 mV 0.5 V 0.4 ms 643 ohm Walt Pacing Parameters 1. Pacing mode: DDD-CLS 2. Lower rate: 60 ppm 3. Upper tracking rate: 130 ppm 4. Upper sensor rate: 130 ppm Patient Problems: Problems Problem Status Onset Acute renal failure Acute Mitral valve regurgitation Acute Acute blood loss anemia Acute S/P CABG x 5 Acute ~12/29/16 Ischemic cardiomyopathy Chronic CAD, multiple vessel Chronic Chest pain Acute Elevated troponin Acute
--- NOTE | 2017-01-04 13:25 | CPEKG ---
Heart Rate: 70 RR Interval: 857 P-R Interval: 180 QRSD Interval: 180 QT Interval: 464 QTC Interval: 501 P Saxton: 56 QRS Saxton: -25 T Wave Saxton: 156 EKG Severity - ABNORMAL ECG - EKG Impression: SINUS RHYTHM EKG Impression: PROBABLE LEFT ATRIAL ABNORMALITY EKG Impression: LEFT BUNDLE BRANCH BLOCK Electronically Signed By: Teddy Argueta 04-Jan-2017 17:21:03
--- NOTE | 2017-01-04 15:53 | HOSPPROG ---
Hospitalist Progress Note Assessment/Plan: #Uncontrolled DM: A1c 11%. Hold orals while here -min SSI needs. Cont to monitor. Will have dietary consult to help family #Bradycardia: A/V pacer placed today #CAD: s/p 5V-CABG. ASA, statin. Hep on hold with low platelets #Acute encephalopathy: at risk with age, ICU stay. Avoid central-acting meds. Encourage awake during day to maintain normal sleep cycle #Hyperkalemia: resolved #Mildy decompensated systolic/diastolic HF: Torsemid, BB. ZACHARY-I when clinically stable #CHIQUIS: resolved. #Tobacco abuse: counseled on cessation #Suspected COPD: per pulm #Acute hypoxic resp failure: suspect underlying COPD. #Moderate MR: diuresing per primary #Thrombocytopenia: did get heparin that is being held. HIT Ab negative #DVT ppx: SCDs We will cont to follow along, please call if questions. Subjective: denies CP or SOB Objective: Vital Signs Temp Pulse Resp BP Pulse Ox 36.8 C 74 12 147/80 H 96 01/04/17 15:37 01/04/17 15:37 01/04/17 15:37 01/04/17 15:37 01/04/17 15:37 Laboratory Results 01/03/17 05:00 01/03/17 05:00 01/03/17 01/04/17 01/05/17 05:59 05:59 05:59 Intake Total 1030 590 Output Total 2970 1235 Balance -1940 -645 PT 14.1 SEC (12.0-15.0) 12/25/16 02:15 INR 1.10 (0.83-1.16) 12/25/16 02:15 - Physical Exam Constitutional: no apparent distress, other (sitting up in bed talking with family) Eyes: PERRL Ears, Nose, Mouth, Throat: moist mucous membranes Cardiovascular: regular rate and rhythym, edema (trace pedal edema), other ( right chest pacer site dressed, C/D/I. No e/o hematomoa. Surgical incision healing well, tubes out) Respiratory: no respiratory distress Gastrointestinal: normoactive bowel sounds Genitourinary: no bladder fullness Skin: warm Musculoskeletal: full muscle strength Neurologic: AAOx3 Psychiatric: interacting appropriately ICD10 Worksheet Patient Problems: Problems Problem Status Onset Acute blood loss anemia Acute Acute renal failure Acute Chest pain Acute Elevated troponin Acute Mitral valve regurgitation Acute S/P CABG x 5 Acute ~12/29/16 CAD, multiple vessel Chronic Ischemic cardiomyopathy Chronic
[2017-01-04] MEDS ORDERED: SENNOSIDES/DOCUSATE SODIUM TAB PO PRN (21:00)
[2017-01-04] MEDS: EZETIMIBE 10 MG TAB PO SCH (21:55)
[2017-01-04] MEDS: ATORVASTATIN CALCIUM 20 MG TAB PO SCH (21:56)
[2017-01-05] MEDS: HYDROCODONE/APAP 5/325 TAB PO PRN ×2 (00:14→06:07)
[2017-01-05] MEDS: traMADol 50 MG TAB PO PRN (00:54)
[2017-01-05 04:45] LABS: % IMMATURE GRANULYOCYTES 0.3 % (0.0-1.1); ABSOLUTE IMMATURE GRANULOCYTES 0.02 10^3/uL (0.00-0.10); ADD DIFF? NO; ADD MORPH? NO; ADD SCAN? NO; ATYPICAL LYMPHOCYTE FLAG 60 (0-99); FRAGMENT RBC FLAG 0 (0-99); HEMATOCRIT 31.1 % (40.0-51.0); HEMOGLOBIN 10.5 g/dL (13.7-17.5); LEFT SHIFT FLG 10 (0-99); LIPEMIA HEMOLYSIS FLAG 90 (0-99); MEAN CELL HEMOGLOBIN 29.9 pg (27.9-34.1); MEAN CELL HEMOGLOBIN CONCENTR. 33.8 g/dL (32.4-36.7); MEAN CELL VOLUME 88.6 fL (81.5-99.8); MEAN PLATELET VOLUME 11.4 fL (8.7-11.7); PLATELET CLUMPS FLAG 0 (0-99); PLATELET COUNT 145 10^3/uL (150-400); RED BLOOD CELL COUNT 3.51 10^6/uL (4.40-6.38); RED CELL DISTRIBUTION WIDTH 13.6 % (11.5-15.2)
[2017-01-05 05:16] LABS: ANION GAP 5 mEq/L (8-16); CALCIUM 8.4 mg/dL (8.5-10.4); CARBON DIOXIDE 29 mEq/l (22-31); CHLORIDE 103 mEq/L (97-110); CREATININE 0.9 mg/dL (0.7-1.3); GLOMERULAR FILTRATION RATE > 60; GLUCOSE 131 mg/dL (70-100); POTASSIUM 3.7 mEq/L (3.5-5.2); SODIUM 137 mEq/L (134-144)
[2017-01-05] MEDS ORDERED: ceFAZolin 2 GM/DEXTROSE 100 ML IV ONE (06:00)
[2017-01-05] MEDS ORDERED: BACITRACIN IRRIGATION/NS 50,000 UNITS/1,000 ML BTL IRR ONE (06:00)
[2017-01-05] MEDS ORDERED: diphenhydrAMINE 25 MG CAP PO ONE (06:00)
[2017-01-05] MEDS ORDERED: DIAZEPAM 5 MG TAB PO ONE (06:00)
[2017-01-05] MEDS ORDERED: NS 1,000 ML IV SCH (06:00)
[2017-01-05] MEDS: IPRATROPIUM/ALBUTEROL 3 ML DEYVIAL IH SCH ×3 (06:38→17:52)
[2017-01-05] MEDS ORDERED: POTASSIUM CL 20 MEQ TAB PO ONE (07:43)
--- NOTE | 2017-01-05 07:45 | SOAPPROG ---
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 - Extubated without issues - Further COPD mgmt as per pulmonology as warranted Conduction disturbance during placement of TLC requiring CPR wiyh post-op bradycardia s/p AV PPM implantation - Plan for 6 week post-implantation reassessment for possible pacer change to biventricular ICD d/t systolic dysfunction Moderate MR, functional - Mgmt as per CHF mgmt CHF, class III, combine systolic and diastolic dysfunction with moderate fluid overload - Continue Torsemide daily Permanent atrial fibrillation - Thromboprophylaxis for CHADS2 score of 5 deferred d/t potential complications (fall risk) with anticoagulation Dysphagia with weight loss - Medical w/u negative for obstruction/CA - Swallow evaluation revealed mild esophageal motility - Tolerating PO without issues DM, poorly controlled by HgbA1c of 11.8 - Currently on ISS with minimal needs - IM consult appreciated, awaiting recommendations for discharge ETOH abuse, remote - Stable CHIQUIS to ARF - Resolved Disposition - Home today without services Subjective: No complaints. Daughter in law bedside and comfortable with pt being discharged today. Objective: Vital Signs Temp Pulse Resp BP Pulse Ox 36.8 C 78 14 160/99 H 95 01/05/17 07:20 01/05/17 07:20 01/05/17 07:20 01/05/17 07:20 01/05/17 07:20 Laboratory Results 01/05/17 04:22 01/05/17 04:22 01/04/17 01/05/17 01/06/17 05:59 05:59 05:59 Intake Total 590 800 Output Total 1235 420 Balance -645 380 PT 14.1 SEC (12.0-15.0) 12/25/16 02:15 INR 1.10 (0.83-1.16) 12/25/16 02:15 Physical Exam - Physical Exam General Appearance: WD/WN, alert, no apparent distress EENT: No scleral icterus (R), No scleral icterus (L) Neck: normal inspection Respiratory: No respiratory distress Cardiac/Chest: regular rate, rhythm Abdomen: non-tender, soft, No distended Skin: normal color, warm/dry Extremities: pedal edema Neuro/Psych: no motor/sensory deficits, alert, normal mood/affect, oriented x 3 ICD10 Worksheet Patient Problems: Problems Problem Status Onset Acute blood loss anemia Acute Acute renal failure Acute Chest pain Acute Elevated troponin Acute Mitral valve regurgitation Acute S/P CABG x 5 Acute ~12/29/16 CAD, multiple vessel Chronic Ischemic cardiomyopathy Chronic
--- NOTE | 2017-01-05 08:52 | CPEKG ---
Heart Rate: 76 RR Interval: 789 P-R Interval: 184 QRSD Interval: 180 QT Interval: 452 QTC Interval: 509 P Alpha: 18 QRS Alpha: 16 T Wave Alpha: 199 EKG Severity - ABNORMAL ECG - EKG Impression: SINUS RHYTHM EKG Impression: LBBB Electronically Signed By: Lester Stoddard 05-Jan-2017 11:06:34
[2017-01-05] MEDS: METOPROLOL TARTRATE 25 MG TAB PO SCH (08:54)
[2017-01-05] MEDS: PANTOPRAZOLE SODIUM 40 MG TAB PO SCH (08:54)
[2017-01-05] MEDS: TORSEMIDE 20 MG TAB PO SCH (08:54)
[2017-01-05] MEDS: ASPIRIN 81 MG CHEWABLE TAB PO SCH (08:55)
[2017-01-05] MEDS: POTASSIUM CL 20 MEQ TAB PO SCH (08:56)
[2017-01-05] MEDS ORDERED: LISINOPRIL 10 MG TAB PO SCH (09:00)
[2017-01-05] MEDS: INSULIN LISPRO 100 UNIT/ML SC SCH ×2 (09:05→12:49)
[2017-01-05] MEDS ORDERED: metFORMIN HCL 500 MG TAB PO SCH (09:23)
[2017-01-05 11:45] VITALS: TEMP 98.4
--- NOTE | 2017-01-05 14:52 | PDDCSUM ---
Discharge Summary Discharge Summary: ADMISSION DATE: 12/25/16 DISCHARGE DATE: 01/05/17 ADMISSION DX: 1. Unstable angina 2. Coronary artery disease 3. CHF, class III, systolic and diastolic 4. Permanent atrial fibrillation 5. Moderate mitral valve insufficiency, functional 6. Diabetes, poorly controlled 7. Dysphagia with weight loss DISCHARGE DX: 1. Unstable angina 2. Coronary artery disease 3. CHF, class III, systolic and diastolic 4. Permanent atrial fibrillation 5. Moderate mitral valve insufficiency, functional 6. Diabetes, poorly controlled 7. Dysphagia with weight loss 8. Acute renal failure 9. Pre-operative asystole 10. Post-operative bradycardia PROCEDURES 12/29/16, Jose Fountain: 1. CABGx5 (FLORES-LAD, SVG-diag, sequential SVG-OM1-OM2, SVG-circ), EVH left leg, ligation KACIE 01/04/17, Lester Stoddard 1. Implantation of AV PPM HOSPITAL COURSE BY PROBLEM LIST 1. Unstable angina/CAD s/p CABG x5 - well-tolerated post-operative course. Beta- nataliia, aspirin, and statin prescribed. 2. Permanent atrial fibrillation - mostly SR post-op with periods of rate- controlled AF. Digoxin stopped and thromboprophylaxis deferred d/t high risk of mechanical falls. 3. CHF, class III, systolic and diastolic - EF pre-op of 15% with post-op improvement of 35%. CHF medically optimized post-operatively with diuretics, ACEi, and 1.5 L per day fluid restriction. Discharged 3 kg lower than admission weight. 4. Functional moderate MR - secondary to LV dysfunction and optimized post- operatively with medical therapy. Further management as per cardiology. 5. Diabetes, poorly controlled by HgbA1c of 11.8 - minimal post-operative insulin requirements noted. IM recommended Metformin BID on discharge with outpatient management as per PCP. 6. Conduction issues - PPM implantation deemed necessary d/t bradyarrhythmias as well as asystole during central line placement. 7. Dysphagia with weight loss - medical w/u negative for obstruction or malignancy. No swallowing issues post-operatively. 8. Acute renal failure - resolution with supportive measures. 9. Acute blood loss anemia - stable without the need for blood product transfusions. 10. Acute post-op respitatory insufficiency - prolonged intubation and extubated without issues. CONDITION Good DISPOSITION Home, self-care ACTIVITY Pt was instructed on sternal precautions, activity limitations, and which problems to call [facility] with. Please see Discharge Plan in chart for specifics. D/C MEDICATIONS New 1. Acetaminophen [Tylenol 325mg (*)] 325 - 650 mg PO Q4HRS PRN 2. Aspirin [Aspirin 81mg (*)] 81 mg PO DAILY 3. Hydrocodone/APAP 5/325 [Blair 5/325 (*)] 1 - 2 tab PO Q4HRS PRN 4. Lisinopril [Zestril 10 mg (*)] 10 mg PO DAILY Metoprolol Tartrate [Lopressor 25 mg (*)] 25 mg PO BID 5. Potassium Cl [Klor-Con 20 meq (*)] 20 meq PO DAILY 6. Torsemide [Demadex] 40 mg PO DAILY 7. metFORMIN HCL [Glucophage 500 mg (*)] 500 mg PO BIDMEAL Continue 1. Ezetimibe/Simvastatin [Vytorin 10-40 mg Tablet] 1 tab PO DAILY Discontinue 1. Canagliflozin 2. Nitroglycerin 3. Isosorbide Dinitrate 4. Glybuide 5. Digoxin 6. Enalapril 7. Coplavix PENDING STUDIES/LABS 1. CXR prior to surgical follow-up F/U APPOINTMENTS 1. Jose Fountain - 01/12/17, 11:00 AM 2. PCP within two weeks 3. Cardiology to be arranged at surgical f/u
[2017-01-05 15:45] VITALS: BP 138/84; PULSE 80; RESP 18; O2SAT 99
== END 2017-01-05 17:59 | disposition home or self-care (01) | DRG 234 ==
LOC: F2W 16:31 → OBSVTOIN 12-25 14:40 → F2N 12-28 11:30 → F2W 12-28 12:21 → F2N 12-29 12:04 → F2W 12-31 10:41 → F2N 01-01 08:42 → F2W 01-03 12:43
PROVIDERS: ADMIT Internal Medicine Cardiovascular Disease; ATTEND Thoracic Surgery (Cardiothoracic Vascular Surgery)
PROC: B2111ZZ Fluoroscopy of Multiple Coronary Arteries using Low Osmolar Contrast (ICD-10-PCS; 2016-12-25)
PROC: 4A023N8 Measurement of Cardiac Sampling and Pressure, Bilateral, Percutaneous Approach (ICD-10-PCS; 2016-12-25)
PROC: B2151ZZ Fluoroscopy of Left Heart using Low Osmolar Contrast (ICD-10-PCS; 2016-12-25)
PROC: 0CJS8ZZ Inspection of Larynx, Via Natural or Artificial Opening Endoscopic (ICD-10-PCS; 2016-12-25)
PROC: 021309W Bypass Coronary Artery, Four or More Arteries from Aorta with Autologous Venous Tissue, Open Approach (ICD-10-PCS; principal; 2016-12-29 13:00)
PROC: 02100Z9 Bypass Coronary Artery, One Artery from Left Internal Mammary, Open Approach (ICD-10-PCS; principal; 2016-12-29 13:00)
PROC: 5A1221Z Performance of Cardiac Output, Continuous (ICD-10-PCS; principal; 2016-12-29 13:00)
PROC: 06BQ4ZZ Excision of Left Saphenous Vein, Percutaneous Endoscopic Approach (ICD-10-PCS; principal; 2016-12-29 13:00)
PROC: 5A1935Z Respiratory Ventilation, Less than 24 Consecutive Hours (ICD-10-PCS; principal; 2016-12-29 13:00)
PROC: 02H63JZ Insertion of Pacemaker Lead into Right Atrium, Percutaneous Approach (ICD-10-PCS; 2017-01-04)
PROC: 0JH606Z Insertion of Pacemaker, Dual Chamber into Chest Subcutaneous Tissue and Fascia, Open Approach (ICD-10-PCS; 2017-01-04)
PROC: 02HK3JZ Insertion of Pacemaker Lead into Right Ventricle, Percutaneous Approach (ICD-10-PCS; 2017-01-04)
DX: I25.110 Atherosclerotic heart disease of native coronary artery with unstable angina pectoris (principal); I97.710 Intraoperative cardiac arrest during cardiac surgery; I11.0 Hypertensive heart disease with heart failure; I50.42 Chronic combined systolic (congestive) and diastolic (congestive) heart failure; N17.9 Acute kidney failure, unspecified; D62 Acute posthemorrhagic anemia; I34.0 Nonrheumatic mitral (valve) insufficiency; J44.9 Chronic obstructive pulmonary disease, unspecified; I48.2 Chronic atrial fibrillation; E11.69 Type 2 diabetes mellitus with other specified complication; R13.10 Dysphagia, unspecified; R00.1 Bradycardia, unspecified; Z72.0 Tobacco use; F10.10 Alcohol abuse, uncomplicated; I25.5 Ischemic cardiomyopathy; E78.5 Hyperlipidemia, unspecified; R06.89 Other abnormalities of breathing
CPT/HCPCS: 82947-QW; 86022-90; 92526-GN; 92610-GN; 97116-GP; 97162-GP; 97165-GO; 97530-GO; 97535-GO; C1785; C1898; G0378; J0153; J0171; J0282; J0461; J0690; J1265; J1644; J1815; J1940; J2001; J2150; J2250; J2260; J2370; J2405; J2440; J2704; J2720; J2930; J3010; J7060; P9041; Q9967

== ENCOUNTER 2017-01-10 11:35 | Emergency (ER) | payer MEDICAID ==
[~2017-01-10 11:35] MED LIST: CEPHALEXIN 500 MG CAP PO SCH; PHENAZOPYRIDINE HCL 200 MG TAB PO SCH
[2017-01-10 11:42] VITALS: RESP 18
[2017-01-10 12:04] LABS: COLOR YELLOW; LEUKOCYTE ESTERASE,URINE 1+ (NEGATIVE)
--- NOTE | 2017-01-10 12:04 | EDPHY ---
H & P Stated Complaint: Difficulty with urination since heart sugery on 01/04. Time Seen by Provider: 01/10/17 12:04 - Medical/Surgical History Hx Asthma: No Hx Chronic Respiratory Disease: No Hx Diabetes: Yes Hx Cardiac Disease: Yes Hx Renal Disease: No Hx Cirrhosis: No Hx Alcoholism: No Hx HIV/AIDS: No Hx Splenectomy or Spleen Trauma: No Other PMH: DM HTN Afib. heart surgery 01/04/17. - Social History Smoking Status: Former smoker Constitutional: Initial Vital Signs Temperature (C) 36.9 C 01/10/17 11:39 Heart Rate 72 01/10/17 11:39 Respiratory Rate 18 01/10/17 11:39 Blood Pressure 127/67 H 01/10/17 11:39 O2 Sat (%) 96 01/10/17 11:39 O2 Delivery Mode Room Air Allergies/Adverse Reactions: erythromycin base [From E-Mycin] Allergy (Verified 12/24/16 13:22) Home Medications: Medication Instructions Recorded Acetaminophen [Tylenol 325mg (*)] 325 - 650 mg PO Q4HRS PRN #0 tab 01/05/17 Aspirin [Aspirin 81mg (*)] 81 mg PO DAILY #30 tab.chew 01/05/17 Ezetimibe/Simvastatin [Vytorin 1 tab PO DAILY AT 9PM #30 tablet 01/05/17 10-40 mg Tablet] Hydrocodone/APAP 5/325 [Bradshaw 1 - 2 tab PO Q4HRS PRN #40 tab 01/05/17 5/325 (*)] Lisinopril [Zestril 10 mg (*)] 10 mg PO DAILY #30 tab 01/05/17 Metoprolol Tartrate [Lopressor 25 25 mg PO BID #60 tab 01/05/17 mg (*)] Potassium Cl [Klor-Con 20 meq (*)] 20 meq PO DAILY #30 tab 01/05/17 Torsemide [Demadex] 40 mg PO DAILY #30 tab 01/05/17 metFORMIN HCL [Glucophage 500 mg 500 mg PO BIDMEAL #60 tab 01/05/17 (*)] Cephalexin [Keflex (RX)] 500 mg PO TID #30 cap 01/10/17 Phenazopyridine HCl [Pyridium] 200 mg PO TID #6 tab 01/10/17 Rivaroxaban [Xarelto 15mg (*)] 15 mg PO BID #42 tab 01/10/17 Rivaroxaban [Xarelto] 20 mg PO DAILY #67 tab 01/10/17 Medical Decision Making - Diagnostics Imaging Results: Imaging Impressions Extremity Venous Study 01/10/17 12:27 Impression: 1. DVT in the central right femoral vein 2. No DVT in the left lower extremity. Findings discussed with Franki Gómez MD 01/10/2017 at 13:11. Imaging: Discussed imaging studies w/ scallop binder Radiologist ED Course/Re-evaluation: CHIEF COMPLAINT: Dysuria and urinary retention following surgery HISTORY OF PRESENT ILLNESS: The patient is a Greenlandic-speaking 76 y/o male complaining of dysuria and urinary retention following a cardiac surgery 1 week ago. He was discharged with a catheter in place. He has pain in his penis, suprapubic abdomen, and bilateral lower back for the last 3 days. He also notes new left-sided leg swelling. He denies shortness of breath, fever, or other complaints. He is a poor historian secondary to dementia. History obtained via use of Greenlandic tube balancer. REVIEW OF SYSTEMS: A 10 point review of systems was performed and is negative with the exception of the elements mentioned in the history of present illness. PHYSICAL EXAM: HR, BP, O2 Sat, RR. Temp noted General Appearance: Alert, well hydrated, appropriate, and non-toxic appearing. Head: Atraumatic without scalp tenderness or obvious injury Eyes: Pupils equal, round, reactive to light and accommodation, EOMI, no trauma , no injection. Nose: Atraumatic, no rhinorrhea, clear. Throat: Mucus membranes moist. Neck: Supple, nontender, no lymphadenopathy. Respiratory: No retractions, no distress, no wheezes, and no accessory muscle use. Lungs are clear to auscultation bilaterally. Cardiovascular: Regular rate and rhythm, no murmurs, rubs, or gallops. Good capillary refill all extremities. Gastrointestinal: Abdomen is soft, nontender, non-distended, no masses, no rebound, no guarding, no peritoneal signs. Musculoskeletal: Two monik-sized sacral ulcers. Left leg swelling. Normal active ROM of all extremities, atraumatic. Neurological: Alert, appropriate, and interactive. Nonfocal neuro exam. Skin: No rashes, good turgor, no nodules on palpation. Past medical history: Diabetes, hypertension, atrial fibrillation. Past surgical history: heart surgery 01/04/17 Family history: noncontributory Social history: Family member at bedside. DIAGNOSTICS/PROCEDURES/CRITICAL CARE TIME: Bilateral leg US: Right-sided femoral DVT. No left-sided DVT DIFFERENTIAL DIAGNOSIS: The differential diagnosis for the patient's urinary retention included but was not limited to medication side effect, neurologic causes, outflow obstruction including prostatic hypertrophy, and infection. MEDICAL DECISION MAKING: This is a 76 y/o male who presents with urinary retention and dysuria following cardiothoracic surgery last week. UA indicates UTI. 1gm IV Ceftriaxone administered for UTI. He will be discharged on Keflex and Pyridium. This patient also has a right deep venous thrombosis. I talked to Dr. Fountain from cardiothoracic surgery he is in agreement with using a new oral anticoagulants for this patient. Will start him on Xarelto 15 mg twice daily for 21 days and then 20 mg q.day for the remainder 3 months for a provoked DVT. Dr. Fountain will follow-up on this. Additionally, he will follow up with his regular doctor for resolution of his urinary tract infection. Most likely that is simply from the indwelling Akers. - Data Points Laboratory Results: 01/10/17 01/10/17 12:02 11:55 Urine Color Cancelled YELLOW Urine Appearance Cancelled CLEAR Urine pH Cancelled 5.0 (5.0-7.5) Ur Specific Clyo Cancelled 1.010 (1.002-1.030) Urine Protein Cancelled NEGATIVE (NEGATIVE) Urine Ketones Cancelled NEGATIVE (NEGATIVE) Urine Blood Cancelled NEGATIVE (NEGATIVE) Urine Nitrate Cancelled POSITIVE H (NEGATIVE) Urine Bilirubin Cancelled NEGATIVE (NEGATIVE) Urine Urobilinogen Cancelled NEGATIVE EU EU (0.2-1.0) Ur Leukocyte Esterase Cancelled 1+ H (NEGATIVE) Urine RBC 1-3 /hpf /hpf (0-3) Urine WBC 15-25 /hpf H /hpf (0-3) Ur Epithelial Cells NONE SEEN /lpf /lpf (NONE-1+) Urine Bacteria 1+ /hpf H /hpf (NONE SEEN) Hyaline Casts 1-5 /lpf /lpf (0-1) Urine Mucus TRACE /lpf /lpf (NONE-1+) Ur Culture Indicated? INDICATED H (NI) Urine Glucose Cancelled NEGATIVE (NEGATIVE) Medications Given: Discontinued Medications Ceftriaxone Sodium/Dextrose (Rocephin 1 Gm (Premix)) 50 mls @ 100 mls/hr IV EDNOW ONE PRN Reason: Protocol Stop: 01/10/17 12:57 Last Admin: 01/10/17 12:38 Dose: 50 mls Departure - Departure Disposition: Home, Routine, Self-Care Clinical Impression: Urinary retention Urinary tract infection Qualifiers: Urinary tract infection type: acute cystitis Hematuria presence: without hematuria Qualified Code(s): N30.00 - Acute cystitis without hematuria Deep venous thrombosis Qualifiers: DVT location: lower extremity Affected thrombotic vein of extremity: femoral Chronicity: acute Laterality: right Qualified Code(s): I82.411 - Acute embolism and thrombosis of right femoral vein Condition: Good Instructions: Urinary Tract Infection in Men (ED), Deep Venous Thrombosis (ED) Additional Instructions: 1. Take Keflex as prescribed for UTI. Be sure to complete the entire prescription even if you feel better. 2. Take Pyridium as prescribed for urinary pain. 3. Take Xarelto as prescribed. 4. Follow up with your primary care provider this week. 5. Return to the ED for worsening of condition. 6. Keep your appointment with Dr. Fountain on Wednesday. 7. Case management will follow-up with you tomorrow about an appointment with Dr. No Vance. 1. Sarah Keflex brayan recetado para Infeccion de la Orina. Asegurar completar la receta completamente aunque se siente mejor. 2. Sarah Pyridium brayan recetado para dolor urinario. 3. Sarah Xarelto brayan recetado. 4. Abida de seguimiento con steph Ragsdale de cuidado primario esta semana. 5. Regresar a la gregg de Emergencia para empeoramiento de tu condicion. 6. Mantener dow abida con Dr. Fountain el dnaiel. 7. La manejadora de los casos te va a llamar manana para informacion sobre abida con el Dr. No Rodriguez. Cephalexin (Keflex) 500 mg capsula Sarah 500 mg viri veces por lam para 10 verma. Phenazopyridine Hcl (Pyridium) 200 mg tableta Sarah 200 mg por la boca viri veces por lam. Rivaroxaban (Xarelto) 15 mg tableta Sarah 15 mg por la boca dos veces por lam para 3 semanas. Rivaroxaban (Xarelto) 20 mg tableta Sarah 20 mg por la boca cada lam. Referrals: No Rodriguez, PAC [Primary Care Provider] - As per Instructions Prescriptions: Cephalexin [Keflex (RX)] 500 mg PO TID #30 cap Phenazopyridine HCl [Pyridium] 200 mg PO TID #6 tab Rivaroxaban [Xarelto 15mg (*)] 15 mg PO BID #42 tab Rivaroxaban [Xarelto] 20 mg PO DAILY #67 tab Print Language: Greenlandic Report Scribed for: Franki Gómez Report Scribed by: Tatiana Velasco Date of Report: 01/10/17 Time of Report: 12:29
[2017-01-10 12:06] LABS: NITRITE,URINE POSITIVE (NEGATIVE)
[2017-01-10 12:08] LABS: BACTERIA 1+ /hpf (NONE SEEN); MUCUS TRACE /lpf (NONE-1+); WBC,URINE 15-25 /hpf (0-3)
[2017-01-10 13:35] VITALS: BP 102/59; PULSE 71; TEMP 97.5; O2SAT 93
== END 2017-01-10 15:16 | disposition home or self-care (01) ==
DX: N30.00 Acute cystitis without hematuria (principal); B96.20 Unspecified Escherichia coli [E. coli] as the cause of diseases classified elsewhere; I82.411 Acute embolism and thrombosis of right femoral vein; R33.9 Retention of urine, unspecified; I10 Essential (primary) hypertension; E11.9 Type 2 diabetes mellitus without complications; Z79.82 Long term (current) use of aspirin; Z79.84 Long term (current) use of oral hypoglycemic drugs; Z87.891 Personal history of nicotine dependence
CPT/HCPCS: 96365; J0696

== ENCOUNTER → 2017-01-12 | Outpatient (CLI) | payer MEDICAID | LOC: FIMAGING 09:36 | PROVIDERS: ATTEND Internal Medicine Cardiovascular Disease | DX: J98.11 Atelectasis (principal); I50.9 Heart failure, unspecified; Z95.1 Presence of aortocoronary bypass graft; Z95.0 Presence of cardiac pacemaker ==

== ENCOUNTER 2017-01-14 15:59 | Emergency (ER) | payer MEDICAID ==
[2017-01-14 16:10] VITALS: TEMP 98.6
--- NOTE | 2017-01-14 17:04 | EDPHY ---
H & P Time Seen by Provider: 01/14/17 17:02 HPI/ROS: Chief complaint. Painful urination HPI. 76-year-old male presents with burning on urination. 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 He had a catheter in. He was seen in our emergency department 5 days ago for painful urination. He had a urinary tract infection diagnosed and was started on cephalexin and given a at IV dose of ceftriaxone. He has finished his antibiotics and today developed again some painful urination. At that visit he was also diagnosed with DVT and started on a Xarelto. Patient denies fever, chest pain, shortness of breath, abdominal pain. No symptoms whatsoever until he urinates and he has painful urination. ROS Constitutional. no fever/chills, no weakness Eyes. no problems with vision ENT. no sore throat, no nasal drainage Cardiovascular. no chest pain Respiratory. no shortness of breath, no cough Abdominal. no abdominal pain, no nausea/vomiting, no diarrhea . Painful urination MS. no calf pain/swelling, no neck/back pain, no joint pain Skin. no rash Lymph. no swollen glands Neuro. no headache, no dizziness, no difficulty walking or with speech Past Medical/Surgical History: Past medical history is significant for hypertension, diabetes, atrial fibrillation, recent coronary artery bypass graft and UTI and DVT Social History: Single, nonsmoker, no alcohol Smoking Status: Former smoker Physical Exam: General Appearance: Alert well-developed male no distress vital signs are stable Eyes: Pupils equal and round no pallor or injection. ENT, Mouth: Mucous membranes are moist. Respiratory: There are no retractions, lungs are clear to auscultation. Cardiovascular: Regular rate and rhythm. Gastrointestinal: Abdomen is soft and nontender, no masses, bowel sounds normal. Neurological: Awake and alert, sensory and motor exams grossly normal. Skin: Warm and dry, no rashes. Musculoskeletal: Neck is supple nontender. Extremities symmetrical, full range of motion. Psychiatric: Patient is oriented X 3, there is no agitation. Constitutional: Initial Vital Signs Temperature (C) 37 C 01/14/17 16:08 Heart Rate 77 01/14/17 16:08 Respiratory Rate 18 01/14/17 16:08 Blood Pressure 133/77 H 01/14/17 16:08 O2 Sat (%) 95 01/14/17 16:08 O2 Delivery Mode Room Air Allergies/Adverse Reactions: erythromycin base [From E-Mycin] Allergy (Verified 01/14/17 16:06) Home Medications: Medication Instructions Recorded Acetaminophen [Tylenol 325mg (*)] 325 - 650 mg PO Q4HRS PRN #0 tab 01/05/17 Aspirin [Aspirin 81mg (*)] 81 mg PO DAILY #30 tab.chew 01/05/17 Ezetimibe/Simvastatin [Vytorin 1 tab PO DAILY AT 9PM #30 tablet 01/05/17 10-40 mg Tablet] Hydrocodone/APAP 5/325 [[place] 1 - 2 tab PO Q4HRS PRN #40 tab 01/05/17 5/325 (*)] Lisinopril [Zestril 10 mg (*)] 10 mg PO DAILY #30 tab 01/05/17 Metoprolol Tartrate [Lopressor 25 25 mg PO BID #60 tab 01/05/17 mg (*)] Potassium Cl [Klor-Con 20 meq (*)] 20 meq PO DAILY #30 tab 01/05/17 Torsemide [Demadex] 40 mg PO DAILY #30 tab 01/05/17 metFORMIN HCL [Glucophage 500 mg 500 mg PO BIDMEAL #60 tab 01/05/17 (*)] Cephalexin [Keflex (RX)] 500 mg PO TID #30 cap 01/10/17 Phenazopyridine HCl [Pyridium] 200 mg PO TID #6 tab 01/10/17 Rivaroxaban [Xarelto 15mg (*)] 15 mg PO BID #42 tab 01/10/17 Rivaroxaban [Xarelto] 20 mg PO DAILY #67 tab 01/10/17 Phenazopyridine HCl [Pyridium] 200 mg PO TID #10 tab 01/14/17 Medical Decision Making ED Course/Re-evaluation: Re-evaluation 6:05 p.m.. Patient is stable. The patient, his daughter, and I discussed laboratory evaluation, treatment plan including criteria for return and importance of follow-up and further evaluation. They expressed understanding Differential Diagnosis: I considered urinary tract infection however it does appear that has been cleared. Patient was taking cephalexin and patient's culture and sensitivity appears that the previous infection was sensitive to the cephalexin. No evidence for infection now. I suspect some of the discomfort and burning is from both recent UTI and catheter. - Data Points Laboratory Results: 01/14/17 16:11 Urine Color SHADIA Urine Appearance CLEAR Urine pH 5.0 (5.0-7.5) Ur Specific [place] 1.010 (1.002-1.030) Urine Protein NEGATIVE (NEGATIVE) Urine Ketones NEGATIVE (NEGATIVE) Urine Blood NEGATIVE (NEGATIVE) Urine Nitrate TNP Urine Bilirubin NEGATIVE (NEGATIVE) Urine Urobilinogen 4.0 EU H EU (0.2-1.0) Ur Leukocyte Esterase NEGATIVE (NEGATIVE) Urine RBC Not Reported Urine WBC 1-3 /hpf /hpf (0-3) Ur Epithelial Cells TRACE /lpf /lpf (NONE-1+) Urine Mucus TRACE /lpf /lpf (NONE-1+) Urine Glucose NEGATIVE (NEGATIVE) Departure - Departure Disposition: Home, Routine, Self-Care Clinical Impression: Dysuria Condition: Good Instructions: Dysuria (ED) Additional Instructions: Drink plenty of fluids and stay hydrated. Peridium as needed for burning with urination and use 1 pill 3 times daily for the next 3 days. Return for fever, vomiting, worsening pain with urination. Recheck in 2-3 days if not improving Referrals: UNKNOWN,DOCTOR [Other] - As per Instructions [facility] [Outside] - 2-3 days, if not improved Prescriptions: Phenazopyridine HCl [Pyridium] 200 mg PO TID #10 tab
[2017-01-14 17:26] LABS: COLOR AMBER; LEUKOCYTE ESTERASE,URINE NEGATIVE (NEGATIVE); MUCUS TRACE /lpf (NONE-1+)
[2017-01-14] MEDS ORDERED: PHENAZOPYRIDINE HCL 200 MG TAB PO ONE (18:06)
[2017-01-14 18:37] VITALS: BP 135/80; PULSE 80; RESP 16; O2SAT 94
== END 2017-01-14 18:35 | disposition home or self-care (01) ==
DX: R30.0 Dysuria (principal); I10 Essential (primary) hypertension; E11.9 Type 2 diabetes mellitus without complications; Z79.82 Long term (current) use of aspirin; Z79.84 Long term (current) use of oral hypoglycemic drugs; Z87.891 Personal history of nicotine dependence; Z95.1 Presence of aortocoronary bypass graft

== ENCOUNTER 2017-01-20 10:39 | Emergency (ER) | payer MEDICAID ==
[2017-01-20 10:47] VITALS: TEMP 97.9
[2017-01-20 11:27] LABS: COLOR YELLOW; LEUKOCYTE ESTERASE,URINE NEGATIVE (NEGATIVE); NITRITE,URINE NEGATIVE (NEGATIVE)
--- NOTE | 2017-01-20 12:05 | EDPHY ---
H & P Time Seen by Provider: 01/20/17 12:03 HPI/ROS: Chief complaint. Urinary issues HPI. 76-year-old male presents emergency department with complaint of burning on urination and increased urinary frequency with only small amount urination. He had a coronary artery bypass graft 2 weeks ago and had a Akers catheter. Was seen in the emergency department 1 week ago for the same. He is use peridium that helps with the burning but not the urinary frequency. No similar symptoms previously. He has had no fever or flank pain ROS Constitutional. no fever/chills, no weakness Eyes. no problems with vision ENT. no sore throat, no nasal drainage Cardiovascular. no chest pain Respiratory. no shortness of breath, no cough Abdominal. no abdominal pain, no nausea/vomiting, no diarrhea . Urinary frequency and burning with urination MS. no calf pain/swelling, no neck/back pain, no joint pain Skin. no rash Lymph. no swollen glands Neuro. no headache, no dizziness, no difficulty walking or with speech Past Medical/Surgical History: Coronary artery bypass graft, atrial fibrillation, diabetes, hypertension Social History: Single, nonsmoker, no alcohol Smoking Status: Former smoker Physical Exam: General Appearance: Alert pleasant well-developed male mild distress vital signs are stable Eyes: Pupils equal and round no pallor or injection. ENT, Mouth: Mucous membranes are moist. Respiratory: There are no retractions, lungs are clear to auscultation. Cardiovascular: Regular rate and rhythm. Gastrointestinal: Abdomen is soft and nontender, no masses, bowel sounds normal. Neurological: Awake and alert, sensory and motor exams grossly normal. Skin: Warm and dry, no rashes. Musculoskeletal: Neck is supple nontender. Extremities symmetrical, full range of motion. Psychiatric: Patient is oriented X 3, there is no agitation. Constitutional: Initial Vital Signs Temperature (C) 36.6 C 01/20/17 10:44 Heart Rate 77 01/20/17 10:44 Respiratory Rate 18 01/20/17 10:44 Blood Pressure 125/73 H 01/20/17 10:44 O2 Sat (%) 96 01/20/17 10:44 O2 Delivery Mode Room Air Allergies/Adverse Reactions: erythromycin base [From E-Mycin] Allergy (Unknown, Verified 01/20/17 10:44) Home Medications: Medication Instructions Recorded Acetaminophen [Tylenol 325mg (*)] 325 - 650 mg PO Q4HRS PRN #0 tab 01/05/17 Aspirin [Aspirin 81mg (*)] 81 mg PO DAILY #30 tab.chew 01/05/17 Ezetimibe/Simvastatin [Vytorin 1 tab PO DAILY AT 9PM #30 tablet 01/05/17 10-40 mg Tablet] Hydrocodone/APAP 5/325 [[place] 1 - 2 tab PO Q4HRS PRN #40 tab 01/05/17 5/325 (*)] Lisinopril [Zestril 10 mg (*)] 10 mg PO DAILY #30 tab 01/05/17 Metoprolol Tartrate [Lopressor 25 25 mg PO BID #60 tab 01/05/17 mg (*)] Potassium Cl [Klor-Con 20 meq (*)] 20 meq PO DAILY #30 tab 01/05/17 Torsemide [Demadex] 40 mg PO DAILY #30 tab 01/05/17 metFORMIN HCL [Glucophage 500 mg 500 mg PO BIDMEAL #60 tab 01/05/17 (*)] Cephalexin [Keflex (RX)] 500 mg PO TID #30 cap 01/10/17 Phenazopyridine HCl [Pyridium] 200 mg PO TID #6 tab 01/10/17 Rivaroxaban [Xarelto 15mg (*)] 15 mg PO BID #42 tab 01/10/17 Rivaroxaban [Xarelto] 20 mg PO DAILY #67 tab 01/10/17 Phenazopyridine HCl [Pyridium] 200 mg PO TID #10 tab 01/14/17 Medical Decision Making Procedures: Bladder scan after urinating showed 379 mL residual urine. Akers catheter is placed ED Course/Re-evaluation: On re-evaluation patient is stable. Patient and I discussed treatment plan including criteria for return importance follow-up and further evaluation. He expresses understanding and agreement Differential Diagnosis: I suspect the patient has BPH. No evidence for urinary tract infection or pyelonephritis. He has residual urine after trying to void completely. - Data Points Laboratory Results: 01/20/17 11:06 Urine Color YELLOW Urine Appearance CLEAR Urine pH 5.0 (5.0-7.5) Ur Specific [place] 1.011 (1.002-1.030) Urine Protein NEGATIVE (NEGATIVE) Urine Ketones NEGATIVE (NEGATIVE) Urine Blood NEGATIVE (NEGATIVE) Urine Nitrate NEGATIVE (NEGATIVE) Urine Bilirubin NEGATIVE (NEGATIVE) Urine Urobilinogen NEGATIVE EU EU (0.2-1.0) Ur Leukocyte Esterase NEGATIVE (NEGATIVE) Urine Glucose NEGATIVE (NEGATIVE) Departure - Departure Disposition: Home, Routine, Self-Care Clinical Impression: Acute retention of urine Condition: Good Instructions: Urinary Retention in Men (ED), Akers Catheter Placement and Care (ED) Additional Instructions: Make an appointment to follow up with urologist. I will give you the name of Urology today. Return for fever, worsening pain. Hacer karri kaylyn con el urologo. Yo te voy a vinny el nombre de Urologia hoy. Regresar para fiebre u empeoramiento de dolor. Referrals: Teddy Causey MD [Medical Doctor] - 2-3 days, call for appt. (Follow up appointment schedued for Wednesday @11:30 with 11:10 check in) NONE *PRIMARY CARE P,. [Primary Care Provider] - As per Instructions Print Language: Czech
[2017-01-20] MEDS ORDERED: LIDOCAINE 2% JELLY 20 ML (UROJECT) ONE (13:17)
[2017-01-20 15:06] VITALS: PULSE 65; RESP 16; O2SAT 97
[2017-01-20 15:07] VITALS: BP 150/88
== END 2017-01-20 15:06 | disposition home or self-care (01) ==
PROC: 0T9B70Z Drainage of Bladder with Drainage Device, Via Natural or Artificial Opening (ICD-10-PCS; principal; 2017-01-20)
DX: R33.9 Retention of urine, unspecified (principal); E11.9 Type 2 diabetes mellitus without complications; I10 Essential (primary) hypertension; Z79.82 Long term (current) use of aspirin; Z79.84 Long term (current) use of oral hypoglycemic drugs; Z87.891 Personal history of nicotine dependence; Z95.1 Presence of aortocoronary bypass graft

== ENCOUNTER 2017-01-21 16:59 | Emergency (ER) | payer MEDICAID ==
--- NOTE | 2017-01-21 17:20 | EDPHY ---
H & P Stated Complaint: Akers placed yesterday here;cath clogged Time Seen by Provider: 01/21/17 17:06 HPI/ROS: CHIEF COMPLAINT: Akers catheter with clot in lumen HISTORY OF PRESENT ILLNESS: The patient presents to the emergency department with complaints of bladder discomfort following replacement of a Akers catheter yesterday. The patient had a Akers catheter placed several weeks ago following heart surgery. He was seen in the ED yesterday with complaints of bladder spasm and pain. He was noted to have a small postvoid residual of 300 mL's. Today. The patient noticed a small clot in the lumen of the catheter. He has had some bladder spasms. The patient denies fever, vomiting or other acute complaints. The patient has no history of BPH. He did developed urinary retention postoperatively yesterday. REVIEW OF SYSTEMS: A comprehensive 10 point review of systems is otherwise negative aside from elements mentioned in the history of present illness. Source: Patient - Personal History Current Tetanus Diphtheria and Acellular Pertussis (TDAP): Unsure - Medical/Surgical History Hx Asthma: No Hx Chronic Respiratory Disease: No Hx Diabetes: Yes Hx Cardiac Disease: Yes Hx Renal Disease: No Hx Cirrhosis: No Hx Alcoholism: No Hx HIV/AIDS: No Hx Splenectomy or Spleen Trauma: No Other PMH: DM HTN Afib. heart surgery 12/25/16. - Social History Smoking Status: Former smoker - Physical Exam Exam: General Appearance: Alert, no distress Eyes: Pupils equal and round no pallor or injection ENT, Mouth: Mucous membranes moist Respiratory: There are no retractions, lungs are clear to auscultation Cardiovascular: Regular rate and rhythm Gastrointestinal: Abdomen is soft and nontender, no masses, bowel sounds normal Neurological: A&O, normal motor function, normal sensory exam, normal cranial nerves Skin: Warm and dry, no rashes Musculoskeletal: Neck is supple nontender Constitutional: Initial Vital Signs Temperature (C) 36.8 C 01/21/17 17:05 Heart Rate 88 01/21/17 17:05 Respiratory Rate 18 01/21/17 17:05 Blood Pressure 126/77 H 01/21/17 17:05 O2 Sat (%) 94 01/21/17 17:05 O2 Delivery Mode Room Air Allergies/Adverse Reactions: erythromycin base [From E-Mycin] Allergy (Unknown, Verified 01/20/17 10:44) Home Medications: Medication Instructions Recorded Acetaminophen [Tylenol 325mg (*)] 325 - 650 mg PO Q4HRS PRN #0 tab 01/05/17 Aspirin [Aspirin 81mg (*)] 81 mg PO DAILY #30 tab.chew 01/05/17 Ezetimibe/Simvastatin [Vytorin 1 tab PO DAILY AT 9PM #30 tablet 01/05/17 10-40 mg Tablet] Hydrocodone/APAP 5/325 [[place] 1 - 2 tab PO Q4HRS PRN #40 tab 01/05/17 5/325 (*)] Lisinopril [Zestril 10 mg (*)] 10 mg PO DAILY #30 tab 01/05/17 Metoprolol Tartrate [Lopressor 25 25 mg PO BID #60 tab 01/05/17 mg (*)] Potassium Cl [Klor-Con 20 meq (*)] 20 meq PO DAILY #30 tab 01/05/17 Torsemide [Demadex] 40 mg PO DAILY #30 tab 01/05/17 metFORMIN HCL [Glucophage 500 mg 500 mg PO BIDMEAL #60 tab 01/05/17 (*)] Cephalexin [Keflex (RX)] 500 mg PO TID #30 cap 01/10/17 Phenazopyridine HCl [Pyridium] 200 mg PO TID #6 tab 01/10/17 Rivaroxaban [Xarelto 15mg (*)] 15 mg PO BID #42 tab 01/10/17 Rivaroxaban [Xarelto] 20 mg PO DAILY #67 tab 01/10/17 Phenazopyridine HCl [Pyridium] 200 mg PO TID #10 tab 01/14/17 Medical Decision Making ED Course/Re-evaluation: I did ultrasound the patient's lower abdomen which demonstrates a Akers catheter with an inflated balloon in the bladder. The patient had no significant urinary retention. I suspect the patient may be having some bladder spasms. At this point time I see no obvious indication to replace the Akers catheter. It was flushed it is draining without complication. The patient is instructed to follow up with Urology as directed. He should return to the ED for inability to urinate, severe pain or other concerns. Departure - Departure Disposition: Home, Routine, Self-Care Clinical Impression: Bladder spasm Condition: Good Instructions: Dysuria (ED) Additional Instructions: 1. Please follow-up with your primary care provider and previous Urology referral for a recheck within the next week. 2. Return to the ED for severe pain, vomiting, fever or other concerns. 3. Return to the ED if your bladder catheter stops working or fails to drain. Referrals: [facility] [Other] - As per Instructions
[2017-01-21 18:23] VITALS: BP 141/80; PULSE 78; RESP 16; TEMP 98.4; O2SAT 97
== END 2017-01-21 18:23 | disposition home or self-care (01) ==
DX: N32.89 Other specified disorders of bladder (principal); E11.9 Type 2 diabetes mellitus without complications; I10 Essential (primary) hypertension; Z79.82 Long term (current) use of aspirin; Z79.84 Long term (current) use of oral hypoglycemic drugs; Z87.891 Personal history of nicotine dependence

== ENCOUNTER 2017-01-23 15:47 | Emergency (ER) | payer SELFPAY ==
[2017-01-23 15:59] VITALS: TEMP 97.7
[2017-01-23] MEDS ORDERED: ONDANSETRON DISINTEGRATING 4 MG TAB PO ONE (16:55)
--- NOTE | 2017-01-23 16:55 | EDPHY ---
H & P Time Seen by Provider: 01/23/17 16:35 HPI/ROS: Chief complaint. Urinary symptoms HPI. Patient is 76-year-old male been seen multiple times in the emergency department for urinary symptoms and urinary retention following coronary artery bypass graft about 1 month ago. He initially did have a catheter that was then removed. Patient was seen in the emergency department several days ago and postvoid residual was about 325 mL. A catheter was placed. The patient had no signs of infection at that time. Was seen in the emergency department yesterday for bladder spasms and the catheter was removed. He was given a catheter for in out catheterization however it is painful and he does not want to do it. He is here for pain burning and urinary hesitancy. He would like the catheter replaced. He also tells me he slightly nauseated ROS Constitutional. no fever/chills, no weakness Eyes. no problems with vision ENT. no sore throat, no nasal drainage Cardiovascular. no chest pain Respiratory. no shortness of breath, no cough Abdominal. no abdominal pain, nausea without vomiting, no diarrhea . Problems urinating MS. no calf pain/swelling, no neck/back pain, no joint pain Skin. no rash Lymph. no swollen glands Neuro. no headache, no dizziness, no difficulty walking or with speech Past Medical/Surgical History: Past medical history diabetes, hypertension, atrial fibrillation, coronary artery bypass graft Social History: Single, former smoker, no alcohol Smoking Status: Former smoker Physical Exam: General Appearance: Alert well-developed male mild distress vital signs significant for heart rate 104 Eyes: Pupils equal and round no pallor or injection. ENT, Mouth: Mucous membranes are moist. Respiratory: There are no retractions, lungs are clear to auscultation. Cardiovascular: Regular rate and rhythm. Gastrointestinal: Abdomen is soft and nontender, no masses, bowel sounds normal. Neurological: Awake and alert, sensory and motor exams grossly normal. Skin: Warm and dry, no rashes. Musculoskeletal: Neck is supple nontender. Extremities symmetrical, full range of motion. Psychiatric: Patient is oriented X 3, there is no agitation. Constitutional: Initial Vital Signs Temperature (C) 36.5 C 01/23/17 15:53 Heart Rate 104 H 01/23/17 15:53 Respiratory Rate 14 01/23/17 15:53 Blood Pressure 109/68 01/23/17 15:53 O2 Sat (%) 95 08/19/17 15:53 O2 Delivery Mode Room Air Allergies/Adverse Reactions: erythromycin base [From E-Mycin] Allergy (Unknown, Verified 01/20/17 10:44) Home Medications: Medication Instructions Recorded Acetaminophen [Tylenol 325mg (*)] 325 - 650 mg PO Q4HRS PRN #0 tab 01/05/17 Aspirin [Aspirin 81mg (*)] 81 mg PO DAILY #30 tab.chew 01/05/17 Ezetimibe/Simvastatin [Vytorin 1 tab PO DAILY AT 9PM #30 tablet 01/05/17 10-40 mg Tablet] Hydrocodone/APAP 5/325 [[place] 1 - 2 tab PO Q4HRS PRN #40 tab 01/05/17 5/325 (*)] Lisinopril [Zestril 10 mg (*)] 10 mg PO DAILY #30 tab 01/05/17 Metoprolol Tartrate [Lopressor 25 25 mg PO BID #60 tab 01/05/17 mg (*)] Potassium Cl [Klor-Con 20 meq (*)] 20 meq PO DAILY #30 tab 01/05/17 Torsemide [Demadex] 40 mg PO DAILY #30 tab 01/05/17 metFORMIN HCL [Glucophage 500 mg 500 mg PO BIDMEAL #60 tab 01/05/17 (*)] Cephalexin [Keflex (RX)] 500 mg PO TID #30 cap 01/10/17 Phenazopyridine HCl [Pyridium] 200 mg PO TID #6 tab 01/10/17 Rivaroxaban [Xarelto 15mg (*)] 15 mg PO BID #42 tab 01/10/17 Rivaroxaban [Xarelto] 20 mg PO DAILY #67 tab 01/10/17 Phenazopyridine HCl [Pyridium] 200 mg PO TID #10 tab 01/14/17 Medical Decision Making Procedures: Zofran ODT Postvoid residual--325 mL ED Course/Re-evaluation: Re-evaluation 530. Patient is stable. Akers catheter will be replaced. Patient, his daughter, and I discussed treatment plan including criteria for return importance of follow-up further evaluation. They expressed understanding and agreement. Differential Diagnosis: Urinary retention likely secondary to BPH. No evidence for infection. The - Data Points Laboratory Results: 01/23/17 16:55 Urine Color YELLOW Urine Appearance HAZY Urine pH 5.0 (5.0-7.5) Ur Specific [place] 1.011 (1.002-1.030) Urine Protein 2+ H (NEGATIVE) Urine Ketones NEGATIVE (NEGATIVE) Urine Blood NEGATIVE (NEGATIVE) Urine Nitrate NEGATIVE (NEGATIVE) Urine Bilirubin NEGATIVE (NEGATIVE) Urine Urobilinogen NEGATIVE EU EU (0.2-1.0) Ur Leukocyte Esterase NEGATIVE (NEGATIVE) Urine RBC 5-10 /hpf H /hpf (0-3) Urine WBC 1-3 /hpf /hpf (0-3) Ur Epithelial Cells TRACE /lpf /lpf (NONE-1+) Hyaline Casts 25-50 /lpf H /lpf (0-1) Urine Mucus 1+ /lpf /lpf (NONE-1+) Urine Glucose NEGATIVE (NEGATIVE) Medications Given: Discontinued Medications Ondansetron HCl (Zofran Odt) 4 mg PO EDNOW ONE Stop: 01/23/17 16:56 Last Admin: 01/23/17 17:18 Dose: 4 mg Departure - Departure Disposition: Home, Routine, Self-Care Clinical Impression: Acute retention of urine Condition: Good Instructions: Urinary Retention in Men (ED), Akers Catheter Placement and Care (ED) Additional Instructions: Keep follow-up appointment with urologist. Return for worsening symptoms. [facility]errals: [facility] [Other] - 2-3 days without fail Teddy Montiel MD [Medical Doctor] - As per Instructions
[2017-01-23 17:11] LABS: COLOR YELLOW; LEUKOCYTE ESTERASE,URINE NEGATIVE (NEGATIVE); NITRITE,URINE NEGATIVE (NEGATIVE)
[2017-01-23 17:15] LABS: HYALINE CASTS 25-50 /lpf (0-1); MUCUS 1+ /lpf (NONE-1+)
[2017-01-23 17:55] VITALS: BP 125/85; PULSE 94; RESP 16; O2SAT 96
== END 2017-01-23 17:54 | disposition home or self-care (01) ==
DX: R33.9 Retention of urine, unspecified (principal); I10 Essential (primary) hypertension; E11.9 Type 2 diabetes mellitus without complications; Z79.82 Long term (current) use of aspirin; Z79.84 Long term (current) use of oral hypoglycemic drugs; Z87.891 Personal history of nicotine dependence; Z95.1 Presence of aortocoronary bypass graft

== ENCOUNTER 2018-01-05 06:52 | Observation (INO) | payer OTHER ==
[2018-01-05] MEDS ORDERED: DIAZEPAM 5 MG TAB PO ONE (06:55)
[2018-01-05] MEDS ORDERED: BACITRACIN IRRIGATION/NS 50,000 UNITS/1,000 ML BTL IRR ONE (06:55)
[2018-01-05] MEDS ORDERED: diphenhydrAMINE 25 MG CAP PO ONE (06:55)
[2018-01-05] MEDS ORDERED: ceFAZolin 2 GM/DEXTROSE 100 ML IV ONE (06:55)
[2018-01-05] MEDS ORDERED: NS 1,000 ML IV ONE (06:55)
--- NOTE | 2018-01-05 07:18 | CPEKG ---
Heart Rate: 79 RR Interval: 759 P-R Interval: 198 QRSD Interval: 178 QT Interval: 464 QTC Interval: 533 P [place]: 0 QRS [place]: -6 T Wave [place]: 176 EKG Severity - ABNORMAL ECG - EKG Impression: ATRIAL-PACED COMPLEXES EKG Impression: PROBABLE LEFT ATRIAL ABNORMALITY EKG Impression: ATYPICAL LBBB Electronically Signed By: Malissa Posey 05-Jan-2018 08:39:00
[2018-01-05 07:45] LABS: PLATELET COUNT 109 10^3/uL (150-400)
[2018-01-05 07:46] LABS: INR 1.07 (0.83-1.16); PROTIME(PATIENT) 14.1 SEC (12.0-15.0)
[2018-01-05] MEDS ORDERED: BUPIVACAINE 0.75% 10 ML SDV ONE (08:10)
[2018-01-05] MEDS ORDERED: IOPAMIDOL (ISOVUE-300) 100 ML BTL ONE ×2 (08:10→11:56)
[2018-01-05] MEDS ORDERED: LIDOCAINE 1% 300 MG/30 ML SDV ONE (08:10)
--- NOTE | 2018-01-05 08:23 | PDGENHP ---
History & Physical Chief Complaint: ICMP Relevant Physical Exam: s1s2 rrr cta ao3 Cardiorespiratory Assessment: LVEF <35%, LBBB, CHF NYHA 2-3. Meets criteria for BiV ICD. Cr 1.2, have discussed risks with them including risk of renal failure
--- NOTE | 2018-01-05 08:29 | PDANEPAE ---
ANE History of Present Illness Cardiomyopathy ANE Past Medical History - Cardiovascular History Hx Hypertension: Yes Hx Arrhythmias: Yes Hx Chest Pain: Yes Hx Coronary Artery / Peripheral Vascular Disease: Yes Hx CHF / Valvular Disease: Yes - Pulmonary History Hx COPD: Yes Hx Oxygen in Use at Home: No Hx Sleep Apnea: No - Endocrine History Hx Diabetes: Yes - Renal History Hx Renal Disorders: No - Liver History Hx Hepatic Disorders: No - Chronic Pain History Chronic Pain: No - Surgical History Prior Surgeries: no prior surgery ANE Review of Systems Review of Systems: ANE Patient History - Allergies Allergies/Adverse Reactions: erythromycin base [From E-Mycin] Allergy (Unknown, Verified 01/20/17 10:44) - Home Medications Home Medications: Carvedilol [Coreg (*)] 3.125 mg PO BIDMEAL 01/04/18 [Last Taken Unknown] Ezetimibe/Simvastatin [Vytorin 10-40 mg Tablet] 1 tab PO DAILY 01/04/18 [Last Taken Unknown] Furosemide [Lasix 40 MG (*)] 40 mg PO DAILY 01/04/18 [Last Taken Unknown] Linagliptin [Tradjenta] 5 mg PO DAILY 01/04/18 [Last Taken Unknown] Lisinopril [Zestril 20 mg (*)] 20 mg PO DAILY 01/04/18 [Last Taken Unknown] - Smoking Hx Smoking Status: Former smoker ANE Labs/Vital Signs - Labs Result Diagrams: 01/05/18 07:25 01/05/18 07:25 - Vital Signs Height: 172.72 cm Weight: 72.575 kg ANE Physical Exam - Airway Neck exam: FROM Mallampati Score: Class 2 Mouth exam: poor dentition - Pulmonary Pulmonary: no respiratory distress - Cardiovascular Cardiovascular: regular rate and rhythym - ASA Status ASA Status: IV ANE Anesthesia Plan Anesthesia Plan: general endotracheal anesthesia, GA w LMA
[2018-01-05] MEDS ORDERED: ROCURONIUM 50 MG/5 ML VIAL ONE ×3 (08:33→11:36)
[2018-01-05] MEDS ORDERED: PHENYLEPHRINE HCL 100 MCG/ML SYR ONE (08:33)
[2018-01-05] MEDS ORDERED: ePHEDrine SULFATE 25 MG/5 ML SYR ONE ×2 (08:33→13:03)
[2018-01-05] MEDS ORDERED: fentaNYL 100 MCG/2 ML INJ ONE ×3 (08:33→13:44)
[2018-01-05] MEDS ORDERED: PROPOFOL 200 MG/20 ML VIAL ONE ×2 (08:34)
[2018-01-05] MEDS ORDERED: DESFLURANE 240 ML BOTTLE IH ONE (10:43)
[2018-01-05] MEDS ORDERED: SUGAMMADEX SODIUM 200 MG/2 ML VIAL IVP ONE (13:03)
[2018-01-05] MEDS ORDERED: NALOXONE HCL 0.4 MG/ML INJ IVP PRN (13:21)
--- NOTE | 2018-01-05 13:22 | POSTANESTH ---
Post Anesthetic Evaluation Cardiovascular Status: Normal, Stable Respiratory Status: Normal, Stable Level of Consciousness/Mental Status: Can Participate in Eval Pain Control: Adequate, Prn Tx Ordered Nausea/Vomiting Control: Adequate, Prn Tx Ordered Complications Possibly Related to Anesthesia: None Noted
[2018-01-05] MEDS ORDERED: HYDROCODONE/APAP 5/325 TAB ONE (13:37)
[2018-01-05] MEDS ORDERED: fentaNYL 100 MCG/2 ML INJ IV ONE (14:00)
--- NOTE | 2018-01-05 14:05 | CPEKG ---
Heart Rate: 81 RR Interval: 741 P-R Interval: 128 QRSD Interval: 158 QT Interval: 468 QTC Interval: 544 P [place]: 85 QRS [place]: 165 T Wave [place]: -14 EKG Severity - ABNORMAL ECG - EKG Impression: ATRIAL-SENSED VENTRICULAR-PACED RHYTHM Electronically Signed By: Malissa Posey 05-Jan-2018 16:12:13
[2018-01-05] MEDS: HYDROCODONE/APAP 5/325 TAB PO PRN ×2 (14:21→17:47)
[2018-01-05] MEDS ORDERED: ONDANSETRON 4 MG/2 ML VIAL ONE (15:11)
[2018-01-05] MEDS ORDERED: ONDANSETRON 4 MG/2 ML VIAL IVP PRN (15:40)
[2018-01-05] MEDS ORDERED: ONDANSETRON 4 MG/2 ML VIAL IVP ONE (15:45)
--- NOTE | 2018-01-05 21:18 | EPPROC ---
Electrophysiology Procedure Note: PROCEDURE PERFORMED: 1. Upgrade of A-V PM to A-BiV ICD 2. Subclavian vein angiography 3. Subclavian vein angioplasty 4. Extraction of ventricular lead 5. Pocket revision 6. Fluoroscopy INDICATION: Existing A-V PM Cardiomyopathy, LBBB, NYHA Class II-III PROCEDURE NOTE: Patient presented to the cardiac catherization laboratory in a fasting, postabsorptive state. Anesthesiologist administered general anesthesia. The left infraclavicular area was prepped and draped in the usual sterile fashion. Lidocaine plus bupivacaine was used for local anesthesia. Left subclavian venography was performed by injection of iodinated contrast into the left antecubital vein. 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 We could not pass J wire or Wholey wire but were able to pass an angled glide wire. 5Fr dilator was advanced with difficulty and wire changed to Amplatz superstiff which was advanced to RA. Dr. Primo Toney performed subclavian venoplasty. Using a combination of blunt and sharp dissection and electrocautery, the dissection was carried down to the prepectoral fascia. The existing pacemaker pocket was exposed and expanded to accommodate the ICD. All bleeding was controlled with electrocautery. The pocket was packed with gauze soaked in antibiotic solution. Fluoroscopy was utilized during the entire procedure for venous access and placement of the leads. A second guidewire was placed into the subclavian vein. A purse string suture was applied around the guide wires. An ICD lead was advanced into the RV apex and screwed in place. The existing pacemaker RV lead was easily extracted with manual traction. A 9 [place] Wh[place]ley sheath was advanced over the guide wire into the subclavian vein. The coronary sinus ostium was engaged. Occlusion retrograde coronary sinus angiography was performed in 1 views. A coronary sinus bipolar lead was advanced into the coronary sinus. An angioplasty wire was advanced through the lead and advanced into the mid portion of the anterolateral branch of the coronary sinus. The lead was advanced over the angioplasty wire. Pacing threshold, sensing and impedance was determined. Pacing thresholds were suboptimal. We tried placing this lead in the posterolateral branch but were not successful due to lack of sheath support. The lateral vein was very small. A quadripolar lead was therefore advanced into the anterolateral branch of the CS, more distally than the bipolar lead, with excellent pacing parameters. There was no diaphragmatic stimulation at maximum output. The delivery system and the 9 Fr sheath were peeled away. Again, pacing threshold, sensing and impedance was determined. There was no diaphragmatic stimulation at maximum output. The CS lead was secured to the prepectoral fascia with 3nonabsorbablesutures. The gauze packing was removed from the pacemaker pocket. The pocket was again inspected for any bleeding. The leads were attached to the pacemaker securely. The pacemaker was inserted into the pocket and secured in place with a nonabsorbable suture. Defibrillation threshold testing was not performed, risks were thought to exceed the benefits. The pacemaker pocket was closed in 3 layers with absorbable monocryl sutures and lew. Appropriate dressing was applied. The patient left the cardiac catheterization laboratory in stable condition. Serial Numbers: 1. Device Biotronik Intica SN [id number] 2. Atrial Lead Biotronik Solia S45 SN [id number] (01/04/2017) 3. Right Ventricular Lead Biotronik Plexa ProMRI SN [id number] (atrial port capped) 4. Left Ventricular Lead Biotronik Sentus ProMRI SN [id number] Stimulation Thresholds & Impedance Measurements: 1. Atrial Lead 0.7 V 0.4 ms P wave 0.4 mV 580 ohm 2. Right Ventricular Lead R 21.1 mV 551 ohm 0.5 V 0.4 ms 3. Left Ventricular Lead R 16.8 mV 1.5 V 0.4 ms 985 ohm Walt Pacing Parameters: 1. Pacing mode DDD-CLS 2. Lower rate 70 ppm 3. Upper rate 120 ppm Tachycardia therapy parameters: VF zone : Detection 200 bpm First therapy 30 Joule Subsequent therapies 40 Joule VT zone : Detection 170 bpm ATP x 3 Second therapy 30 Joule Subsequent therapies 40 Joule Patient Problems: Problems Problem Status Onset Acute renal failure Acute Mitral valve regurgitation Acute Acute blood loss anemia Acute S/P CABG x 5 Acute ~12/29/16 Ischemic cardiomyopathy Chronic CAD, multiple vessel Chronic Chest pain Acute Elevated troponin Acute
[2018-01-05] MEDS: CARVEDILOL 3.125 MG TAB PO SCH (21:21)
[2018-01-06 03:58] LABS: PLATELET COUNT 95 10^3/uL (150-400)
[2018-01-06 08:06] VITALS: BP 135/77
[2018-01-06] MEDS ORDERED: LINAGLIPTIN PO SCH (09:00)
[2018-01-06] MEDS ORDERED: LISINOPRIL 20 MG TAB PO SCH (09:00)
[2018-01-06] MEDS ORDERED: FUROSEMIDE 40 MG TAB PO SCH (09:00)
[2018-01-06] MEDS ORDERED: ASPIRIN 81 MG CHEWABLE TAB PO SCH (09:00)
[2018-01-06] MEDS ORDERED: EZETIMIBE 10 MG TAB PO SCH (09:00)
[2018-01-06] MEDS ORDERED: ATORVASTATIN CALCIUM 20 MG TAB PO SCH (09:00)
--- NOTE | 2018-01-06 09:05 | CPEKG ---
Heart Rate: 101 RR Interval: 594 P-R Interval: 156 QRSD Interval: 150 QT Interval: 428 QTC Interval: 555 P Laurel: 44 QRS Laurel: 171 T Wave Laurel: -6 EKG Severity - ABNORMAL ECG - EKG Impression: ATRIAL-SENSED VENTRICULAR-PACED RHYTHM Electronically Signed By: Malissa Posey 06-Jan-2018 10:18:04
[2018-01-06] MEDS: HYDROCODONE/APAP 5/325 TAB PO PRN (09:26)
[2018-01-06] MEDS: CARVEDILOL 3.125 MG TAB PO SCH (09:26)
--- NOTE | 2018-01-06 10:20 | ASDISCHSUM ---
Discharge Information Plan Status:Home with No Needs Medically Cleared to Leave:01/06/2018 Discharge Date:01/06/2018 CM D/C Disposition:Home, Routine, Self-Care ADT D/C Disposition:Home, Routine, Self-Care Projected Discharge Date:01/06/2018 Transportation at D/C: Discharge Delay Reason: Follow-Up Date:01/06/2018 Discharge Slot: Final Diagnosis: Placement Information Patient Contact Information Contact Name:NEYMAR Relationship:Daughter Address:[address] Work Phone: City:[place] Alternate Phone: State/Zip Code:[place] [address] Email: Financial Information Financial Class:Self-Pay Primary Plan Desc:WE CARE Primary Plan Number:99 Secondary Plan Desc: Secondary Plan Number: Assessment Information LACE LACE Length of stay for Answers: Less than 1 day current admission Acuity / Level of Answers: No Care: Did the patient have an inpatient admission? Comorbidities - select Answers: Chronic pulmonary disease all that apply Congestive heart failure Coronary Artery Disease Diabetes (uncontrolled or controlled) Other Notes: HTN # of Emergency department Answers: 0 visits in the last 6 months Social determinants Answers: Lack of community resources and/or lack of social support (no pcp, lives alone, transportation, dayo d) Score: 12 Date Signed: 01/06/2018 10:19 AM Electronically Signed By:Chelle Gordon RN Intervention Information
--- NOTE | 2018-01-06 11:07 | GDS ---
[f rep st] DISCHARGE SUMMARY SUPERVISING ACCOUNTS PAYABLE PROFESSIONAL: Dr. Lester Stoddard. ADMISSION DIAGNOSES: 1. Coronary artery disease with remote history of bypass surgery. 2. 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 3. Left bundle branch block. 4. Ischemic cardiomyopathy with ejection fraction of 25%. DISCHARGE DIAGNOSES: 1. Coronary artery disease, with remote coronary artery bypass graft. 2. Ischemic cardiomyopathy with ejection fraction of 25%. 3. Left bundle branch block. 4. 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 5. Status post upgrade of permanent pacemaker to biventricular automated implantable cardioverter-de fibrillator implantation with automated implantable cardioverter-defibrillator and right ventricular lead implantation, and coronary sinus left ventricular lead implantation. All devices were Biotronik . PROCEDURES PERFORMED DURING HOSPITALIZATION: 1. Electrocardiogram. 2. Upgrade AV pacemaker to BiV AICD with new RV AICD lead implantation and coronary sinus lead impla ntation. 3. Subclavian venogram. 4. Subclavian angioplasty. 5. Extraction of old RV lead. 6. Pocket revision. 7. Chest x-ray. BRIEF HISTORY: The patient is a 77-year-old male with known history of CAD, sinus arrest post bypass surgery, in which a pacemaker implantation was done upon discharge. He has been noted to have left bundle branch block and decreased ejection fraction down to 25% with increasing worse symptoms of hea rt failure (NYHA class 3). He was evaluated by Dr. Stoddard and felt to be an appropriate candidate for u pgrade to a biventricular device, with his low ejection fraction. Despite being on maximum medical t herapy and risk of sudden cardiac , it was decided also to have him upgraded to an AICD. HOSPITAL COURSE: Patient was admitted to the hospital, prepped for procedure and taken to the [facility] lab. There, venogram was performed, showing a tight subclavian vein. Dr. Toney, and w ith his assistance, angioplasty of the subclavian vein was done. At that point, new RV AICD lead was implanted, and a new CS lead was implanted. The old RV lead was removed without complications. His device was upgraded to a new biventricular AICD Biotronik device. No complications from procedure. He went to the CVC and ultimately to PCU for overnight observation. There, he has been AV paced. H e reports mild incisional pain, but denies any chest pressure or pain suggesting of ischemia. He has been up and walking in the unit without difficulties. His vital signs are stable. PHYSICAL EXAMINATION: GENERAL APPEARANCE: Elderly male. He is alert and oriented to perso n, place, time, and situation. VITAL SIGNS: Current vital signs are blood pressure of 135/75, heart rate of 74, respirations 12, saturating 94% on room air, temperature 36.7 degrees Celsius. HEENT: Head is normocephalic. Lips and tongue are pink and moist, with no signs of cyanosis. Conjunctivae pink. NECK: Trachea is midline, +2 carotid pulses bilaterally, no auscultated bruits, no jugular ve in distention. LUNGS: Clear to auscultation. No rhonchi, rales or wheezes. No accessory muscle us e, no intercostal muscle retraction noted. CARDIAC: Regular rate, regular rhythm, S1, S2, no S3, S4 , gallops, rubs or murmurs noted. ABDOMEN: Soft, nontender, bowel sounds x4 quadrants. No organome an. No palpable masses. SKIN: [place], warm, dry, no cyanosis, no clubbing, no peripheral edema. V ASCULAR: +2 carotids bilateral, +2 radials bilateral, +1 dorsal pedal and posterior tibial pulses bi lateral. AICD insertion site, left anterior chest, incision intact with lew, with no redness, sw elling, drainage, ecchymosis or hematoma. LABORATORY DATA: Laboratory studies drawn today show WBC of 6.11, hemoglobin of 11.3, hematocrit of 34.4, platelet count of 95. Sodium of 141, potassium 4.7, chloride 107, CO2 26, BUN 26, creatinine 1 .2, glucose 253, calcium 8.4. STUDIES: Electrophysiology, AICD implantation upgrade with both RV and LV lead implantation as above . Morning electrocardiogram showed A-sense, V-paced rhythm. No malignant arrhythmias or pauses note d on continuous cardiac monitoring. Chest x-ray today showed mild cardiomegaly, no acute cardiopulmo nary process, no delayed pneumothorax. Device check done by [employer] personnel representative today showing t he device is functioning within normal limits. DISPOSITION: Patient will be discharged home in fair condition. He is under activity restrictions o f not lifting more than 10 pounds with the left arm or lifting left arm higher than shoulder height o r backwards for the next 6 weeks. DISCHARGE MEDICATIONS: Please see the discharge med reconciliation sheet. Note, the patient has bee n asked to not take his metformin until tomorrow evening, 48 hours after his procedure due to contras t. No change in the rest of his home medications. DISCHARGE INSTRUCTIONS: The patient is Thai-speaking only. He was seen with professional interpr eter. All post-AICD implantation discharge instructions went over with the patient, including monito ring for signs of infection, bleeding precautions, activity restrictions, and medication compliance. The patient is scheduled for a device and wound check in 1 week in our office, and he is scheduled t o follow up with Dr. Stoddard in 1 month. The patient at the time of discharge verbalized understanding o f all instructions and has no questions or concerns. He has been told that if any problems or concer ns come up post discharge, he is to call our office or return to the hospital. Total time spent on discharge: Greater than 30 minutes. /[id number]/MODL
== END 2018-01-06 13:05 | disposition home or self-care (01) ==
LOC: FSGY 06:52 → F2W 13:25
PROVIDERS: ADMIT Nurse Practitioner Family; ATTEND Internal Medicine Cardiovascular Disease
DX: I25.10 Atherosclerotic heart disease of native coronary artery without angina pectoris (principal); I25.5 Ischemic cardiomyopathy; I44.7 Left bundle-branch block, unspecified
CPT/HCPCS: C1725; C1769; G0378; J0690; J2370; J2405; J2704; J3010; Q9967

== ENCOUNTER 2018-07-05 10:37 | Inpatient (IN) | payer OTHER ==
[2018-07-05] MEDS ORDERED: ASPIRIN 81 MG CHEWABLE TAB PO ONE (11:22)
--- NOTE | 2018-07-05 11:24 | EDPHY ---
H & P Stated Complaint: CP. cough Time Seen by Provider: 07/05/18 11:22 - Personal History Current Tetanus/Diphtheria Vaccine: Yes Current Tetanus Diphtheria and Acellular Pertussis (TDAP): Yes - Medical/Surgical History Hx Asthma: No Hx Chronic Respiratory Disease: No Hx Diabetes: Yes Hx Cardiac Disease: Yes Hx Renal Disease: No Hx Cirrhosis: No Hx Alcoholism: No Hx HIV/AIDS: No Hx Splenectomy or Spleen Trauma: No Other PMH: DM, HTN Afib. heart surgery 12/25/16. - Social History Smoking Status: Former smoker Constitutional: Initial Vital Signs Temperature (C) 37.2 C 07/05/18 10:54 Heart Rate 84 07/05/18 10:54 Respiratory Rate 16 07/05/18 10:54 Blood Pressure 158/92 H 07/05/18 10:54 O2 Sat (%) 93 07/05/18 10:54 O2 Delivery Mode Room Air Allergies/Adverse Reactions: erythromycin base [From E-Mycin] Allergy (Unknown, Verified 07/05/18 10:51) Itching Home Medications: Medication Instructions Recorded Carvedilol [Coreg (*)] 3.125 mg PO BID 01/04/18 Lisinopril [Zestril 20 mg (*)] 20 mg PO DAILY 01/04/18 metFORMIN HCL [Glucophage 500 mg 500 mg PO DAILY 01/05/18 (*)] Medical Decision Making - Diagnostics Imaging Results: Imaging Impressions Chest X-Ray 07/05/18 11:23 Impression: Bilateral lower lobe pneumonia. Imaging: I viewed and interpreted images myself ED Course/Re-evaluation: CHIEF COMPLAINT: Chest pain and cough HISTORY OF PRESENT ILLNESS: The patient is a 78 y/o male with a history of atrial fibrillation and CABG () complaining of chest pain and a cough onset 8 days ago. The patient was in [place] when the symptoms began. When he returned to [place] his family became concerned that the symptoms did not improve so they decided to bring him to the emergency department. No fever, headache, shortness of breath, abdominal pain, urinary or bowel complaints, numbness, paresthesias. A Romansh interpretator was used to communicate with the patient and his family. REVIEW OF SYSTEMS: A comprehensive 10 system review of systems is otherwise negative aside from elements mentioned in the history of present illness and medical decision making. PHYSICAL EXAM: HR, BP, O2 Sat, RR. Temp noted General Appearance: Alert, well hydrated, appropriate, and non-toxic appearing. Head: Atraumatic without scalp tenderness or obvious injury Eyes: Pupils equal, round, reactive to light and accommodation, EOMI, no trauma , no injection. Ears: Clear bilaterally, no perforation, normal landmarks Nose: Atraumatic, no rhinorrhea, clear. Throat: There is no erythema or exudates, no lesions, normal tonsils, mucus membranes moist. Neck: Supple, 2+ carotid upstroke, nontender, no lymphadenopathy. Respiratory: No retractions, no distress, no wheezes, and no accessory muscle use. Lungs are clear to auscultation bilaterally. Cardiovascular: Pacemaker on chest and cardiothoracic surgery scar on chest. Regular rate and rhythm, no murmurs, rubs, or gallops. Bilateral carotid, radial , dorsalis pedis, and posterior tibial pulses intact. Good capillary refill all extremities. Gastrointestinal: Abdomen is soft, nontender, non-distended, no masses, no rebound, no guarding, no peritoneal signs. Musculoskeletal: Normal active ROM of all extremities, atraumatic. Neurological: Alert, appropriate, and interactive. The patient has normal DTRs and non-focal cranial nerves, motor, sensory, and cerebellar exam. Skin: No rashes, good turgor, no nodules on palpation. Past medical history: Diabetes, hypertension, atrial fibrillation Past surgical history: CABG (12/25/16) Family history: Denies Social history: Family at bedside, originally from [place], retired DIAGNOSTICS/PROCEDURES/CRITICAL CARE TIME: EKG: The 12 lead EKG was interpreted by myself as AV dual paced rhythm with a rate of 81. See hard copy and/or "tracemaster" electronic copy for interpretation. Chest x-ray: Bilateral lower lobe pneumonia Critical care time spent by me, Dr. Gómez, exclusively with this patient was 45 minutes, exclusive of PA time and exclusive of procedures. The organ system at risk was cardiovascular and I gave Aspirin and admitted the patient to prevent worsening of the patients condition. DIFFERENTIAL DIAGNOSIS: The differential diagnosis for the patient's chest pain included but was not limited to acute coronary syndrome, myocardial ischemia, pulmonary embolus, chest wall pain, pleural inflammation, and pulmonary infectious causes. MEDICAL DECISION MAKING: The patient is a 78 y/o male with a history of atrial fibrillation and cardiac surgery (12/25/16) presenting with chest pain and a cough onset 8 days ago. On exam he has a pacemaker and cardiothoracic surgery scar on his chest. Labs, chest x-ray, and EKG ordered; 324mg PO Aspirin administered. 1105: I interpreted patient's EKG as AV dual paced rhythm with a rate of 81 1125: Reassessed patient discussed labs and EKG findings. Patient has an elevated troponin; additional labs ordered. 1152: I consulted with the PA from [facility] regarding this patient. will consult on this patient. 1250: Patient's chest x-ray reveals a bilateral lower lobe pneumonia. This could be a fluid overload, but since he also has a cough we will treat the pneumonia; 750mg IV Levaquin administered. 1257: I consulted with the hospitalist service, Dr. Rosario accepts admission of this patient. 1315: I consulted with Dr. Stoner regarding this patient. She will see this patient once he has been transferred to the floor. - Data Points Laboratory Results: Laboratory Results 07/05/18 11:22 07/05/18 11:22 07/05/18 07/05/18 07/05/18 11:30 11:22 11:22 WBC 9.33 10^3/uL 10^3/uL (3.80-9.50) RBC 4.96 10^6/uL 10^6/uL (4.40-6.38) Hgb 14.7 g/dL g/dL (13.7-17.5) POC Hgb 16.3 gm/dL gm/dL (13.7-17.5) Hct 44.1 % % (40.0-51.0) POC Hct 48 % % (40-51) MCV 88.9 fL fL (81.5-99.8) MCH 29.6 pg pg (27.9-34.1) MCHC 33.3 g/dL g/dL (32.4-36.7) RDW 13.8 % % (11.5-15.2) Plt Count 148 10^3/uL L 10^3/uL (150-400) MPV 11.2 fL fL (8.7-11.7) Neut % (Auto) 82.7 % H % (39.3-74.2) Lymph % (Auto) 9.1 % L % (15.0-45.0) Schley % (Auto) 6.2 % % (4.5-13.0) Eos % (Auto) 1.2 % % (0.6-7.6) Baso % (Auto) 0.2 % L % (0.3-1.7) Nucleat RBC Rel Count 0.0 % % (0.0-0.2) Absolute Neuts (auto) 7.71 10^3/uL H 10^3/uL (1.70-6.50) Absolute Lymphs (auto) 0.85 10^3/uL L 10^3/uL (1.00-3.00) Absolute Monos (auto) 0.58 10^3/uL 10^3/uL (0.30-0.80) Absolute Eos (auto) 0.11 10^3/uL 10^3/uL (0.03-0.40) Absolute Basos (auto) 0.02 10^3/uL 10^3/uL (0.02-0.10) Absolute Nucleated RBC 0.00 10^3/uL 10^3/uL (0-0.01) Immature Gran % 0.6 % % (0.0-1.1) Immature Gran # 0.06 10^3/uL 10^3/uL (0.00-0.10) POC Sodium 139 mEq/L mEq/L (135-145) Sodium 136 mEq/L mEq/L (135-145) POC Potassium 3.8 mEq/L mEq/L (3.3-5.0) Potassium 4.2 mEq/L mEq/L (3.5-5.2) POC Chloride 98 mEq/L mEq/L (97-110) Chloride 101 mEq/L mEq/L (97-110) Carbon Dioxide 28 mEq/l mEq/l (22-31) Anion Gap 7 mEq/L mEq/L (6-14) POC BUN 20 mg/dL mg/dL (7-23) BUN 22 mg/dL mg/dL (7-23) Creatinine 1.0 mg/dL mg/dL (0.7-1.3) POC Creatinine 1.0 mg/dL mg/dL (0.7-1.3) Estimated GFR > 60 Glucose 211 mg/dL H mg/dL (70-100) POC Glucose 211 mg/dL H mg/dL (70-100) Calcium 8.4 mg/dL L mg/dL (8.5-10.4) POC Troponin I NT-Pro-B Natriuret Pep 16709 pg/mL H pg/mL (0-450) 07/05/18 11:11 WBC RBC Hgb POC Hgb Hct POC Hct MCV MCH MCHC RDW Plt Count MPV Neut % (Auto) Lymph % (Auto) Schley % (Auto) Eos % (Auto) Baso % (Auto) Nucleat RBC Rel Count Absolute Neuts (auto) Absolute Lymphs (auto) Absolute Monos (auto) Absolute Eos (auto) Absolute Basos (auto) Absolute Nucleated RBC Immature Gran % Immature Gran # POC Sodium Sodium POC Potassium Potassium POC Chloride Chloride Carbon Dioxide Anion Gap POC BUN BUN Creatinine POC Creatinine Estimated GFR Glucose POC Glucose Calcium POC Troponin I 0.21 ng/mL H ng/mL (0.00-0.08) NT-Pro-B Natriuret Pep Medications Given: Discontinued Medications Aspirin (Aspirin) 324 mg PO EDNOW ONE Stop: 07/05/18 11:23 Last Admin: 07/05/18 11:30 Dose: 324 mg Point of Care Test Results: Chemistry 07/05/18 07/05/18 11:30 11:11 POC Sodium 139 mEq/L mEq/L (135-145) POC Potassium 3.8 mEq/L mEq/L (3.3-5.0) POC Chloride 98 mEq/L mEq/L (97-110) POC BUN 20 mg/dL mg/dL (7-23) POC Creatinine 1.0 mg/dL mg/dL (0.7-1.3) POC Glucose 211 mg/dL H mg/dL (70-100) POC Troponin I 0.21 ng/mL H ng/mL (0.00-0.08) ISTAT H&H 07/05/18 11:30 POC Hgb 16.3 gm/dL gm/dL (13.7-17.5) POC Hct 48 % % (40-51) Departure - Departure Disposition: [facility] Inpatient Acute Clinical Impression: Elevated troponin, Acute coronary syndrome Chest pain Qualifiers: Chest pain type: unspecified Qualified Code(s): R07.9 - Chest pain, unspecified Pneumonia Qualifiers: Pneumonia type: due to unspecified organism Laterality: bilateral Lung location : lower lobe of lung Qualified Code(s): J18.1 - Lobar pneumonia, unspecified organism Condition: Fair Referrals: NONE *PRIMARY CARE P,. [Primary Care Provider] - As per Instructions Report Scribed for: Franki Gómez Report Scribed by: Aracelis Ambriz Date of Report: 07/05/18 Time of Report: 12:11
[2018-07-05 11:41] LABS: PLATELET COUNT 148 10^3/uL (150-400)
--- NOTE | 2018-07-05 12:00 | CPEKG ---
Test Reason : OPEN Blood Pressure : / mmHG Vent. Rate : 081 BPM Atrial Rate : 081 BPM P-R Int : 179 ms QRS Dur : 151 ms QT Int : 437 ms P-R-T Axes : 000 184 -32 degrees QTc Int : 508 ms A-V dual-paced rhythm with some inhibition Confirmed by Franki Gómez ([id number]) on 07/05/2018 11:59:59 AM Referred By: PHYSICIAN ED Confirmed By:Franki Gómez
[2018-07-05] MEDS ORDERED: ONDANSETRON DISINTEGRATING 4 MG TAB PO PRN (14:44)
[2018-07-05] MEDS ORDERED: ONDANSETRON 4 MG/2 ML VIAL IVP PRN (14:44)
[2018-07-05] MEDS ORDERED: ACETAMINOPHEN 325 MG TAB PO PRN (14:44)
[2018-07-05] MEDS ORDERED: D50W 25 GM/50 ML SYR IVP PRN (15:28)
--- NOTE | 2018-07-05 15:30 | PDGENHP ---
History and Physical - Chief Complaint cough, chest pain - History of Present Illness 78yo azeri speaking M with history of CAD s/p CABG complicated by ICMP with last LVEF 25% now with BiV ICD presents with cough and chest pain. Micronesian interpretor was used. Son also provided some history. Just returned from [place] yesterday. Was hospitalized in [place] for 8 days for what sounds like pneumonia , just discharged 4 days ago. Patient reports receiving 10L of IV fluids while hospitalized although he is unsure on details of the rest of his stay. Since coming to [place] he has had persistent dry cough, shortness of breath, chest pain associated with coughing. He also noticed his left arm became swollen yesterday. He denies fevers/chills. Denies leg swelling or orthopnea. He reports being compliant with his home medications, including lasix 40mg daily. Of note, he reports falling while in the hospital in [place] and split his lower lip open - this has made it difficult to eat/drink. In the ED, a chest x-ray shows bibasilar alveolar infiltrates. BNP 11k. Troponin 0.21 with non-ischemic ECG. He was given a dose of levofloxacin and is being admitted for further care. History Information - Allergies/Home Medication List Allergies/Adverse Reactions: erythromycin base [From E-Mycin] Allergy (Unknown, Verified 07/05/18 10:51) Itching Home Medications: Carvedilol [Coreg (*)] 3.125 mg PO BID 01/04/18 [Last Taken 07/04/18 21:00] Lisinopril [Zestril 20 mg (*)] 20 mg PO DAILY 01/04/18 [Last Taken 07/04/18] metFORMIN HCL [Glucophage 500 mg (*)] 500 mg PO DAILY 01/05/18 [Last Taken 07/04] Furosemide [Lasix 40 MG (*)] 40 mg PO DAILY 07/05/18 [Last Taken 07/04/18] I have personally reviewed and updated: family history, medical history, social history, surgical history - Past Medical History Additional medical history: as stated in HPI in addition to: post-operative atrial fibrillation, diabetes, RUE DVT (01/2017) - Surgical History Additional surgical history: 5 vessel CABG 12/2016, BiV ICD placement, left atrial appendage closure 12/2016 - Family History Positive for: non-pertinent - Social History Smoking Status: Former smoker Alcohol Use: None Drug Use: None Additional social history: Just recently came back to [place] from [place], living with son, planning on staying here Review of Systems Review of Systems: ROS: 10pt was reviewed & negative except for what was stated in HPI & below Physical Exam Physical Exam: Temp Pulse Resp BP Pulse Ox 36.6 C 75 18 163/100 H 95 07/05/18 14:35 07/05/18 14:35 07/05/18 14:35 07/05/18 14:35 07/05/18 14:35 Constitutional: no apparent distress, appears nourished, not in pain Eyes: PERRL, anicteric sclera, EOMI Ears, Nose, Mouth, Throat: moist mucous membranes, other (lower lip with 2 split areas) Cardiovascular: regular rate and rhythym, no murmur, rub, or gallop, JVD, edema (2+ BLE) Respiratory: no respiratory distress, reduced air movement, inspiratory crackles , No expiratory wheeze Gastrointestinal: normoactive bowel sounds, soft, non-tender abdomen, distension Genitourinary: no bladder fullness, no bladder tenderness Skin: warm, normal color, no rashes or abrasions, no fluctuance, no induration, No mottled Musculoskeletal: full muscle strength, no muscle tenderness, normal joint ROM, no joint effusions Neurologic: AAOx3 Psychiatric: interacting appropriately, not anxious, not encephalopathic, thought process linear Lab Data & Imaging Review 07/05/18 11:22 07/05/18 11:22 WBC 9.33 10^3/uL (3.80-9.50) 07/05/18 11:22 RBC 4.96 10^6/uL (4.40-6.38) 07/05/18 11:22 Hgb 14.7 g/dL (13.7-17.5) 07/05/18 11:22 POC Hgb 16.3 gm/dL (13.7-17.5) 07/05/18 11:30 Hct 44.1 % (40.0-51.0) 07/05/18 11:22 POC Hct 48 % (40-51) 07/05/18 11:30 MCV 88.9 fL (81.5-99.8) 07/05/18 11:22 MCH 29.6 pg (27.9-34.1) 07/05/18 11:22 MCHC 33.3 g/dL (32.4-36.7) 07/05/18 11:22 RDW 13.8 % (11.5-15.2) 07/05/18 11:22 Plt Count 148 10^3/uL (150-400) L 07/05/18 11:22 MPV 11.2 fL (8.7-11.7) 07/05/18 11:22 Neut % (Auto) 82.7 % (39.3-74.2) H 07/05/18 11:22 Lymph % (Auto) 9.1 % (15.0-45.0) L 07/05/18 11:22 Kaufman % (Auto) 6.2 % (4.5-13.0) 07/05/18 11:22 Eos % (Auto) 1.2 % (0.6-7.6) 07/05/18 11:22 Baso % (Auto) 0.2 % (0.3-1.7) L 07/05/18 11:22 Nucleat RBC Rel Count 0.0 % (0.0-0.2) 07/05/18 11:22 Absolute Neuts (auto) 7.71 10^3/uL (1.70-6.50) H 07/05/18 11:22 Absolute Lymphs (auto) 0.85 10^3/uL (1.00-3.00) L 07/05/18 11:22 Absolute Monos (auto) 0.58 10^3/uL (0.30-0.80) 07/05/18 11:22 Absolute Eos (auto) 0.11 10^3/uL (0.03-0.40) 07/05/18 11:22 Absolute Basos (auto) 0.02 10^3/uL (0.02-0.10) 07/05/18 11:22 Absolute Nucleated RBC 0.00 10^3/uL (0-0.01) 07/05/18 11:22 Immature Gran % 0.6 % (0.0-1.1) 07/05/18 11:22 Immature Gran # 0.06 10^3/uL (0.00-0.10) 07/05/18 11:22 VBG Lactic Acid 1.5 mmol/L (0.7-2.1) 07/05/18 13:30 POC Sodium 139 mEq/L (135-145) 07/05/18 11:30 Sodium 136 mEq/L (135-145) 07/05/18 11:22 POC Potassium 3.8 mEq/L (3.3-5.0) 07/05/18 11:30 Potassium 4.2 mEq/L (3.5-5.2) 07/05/18 11:22 POC Chloride 98 mEq/L (97-110) 07/05/18 11:30 Chloride 101 mEq/L (97-110) 07/05/18 11:22 Carbon Dioxide 28 mEq/l (22-31) 07/05/18 11:22 Anion Gap 7 mEq/L (6-14) 07/05/18 11:22 POC BUN 20 mg/dL (7-23) 07/05/18 11:30 BUN 22 mg/dL (7-23) 07/05/18 11:22 Creatinine 1.0 mg/dL (0.7-1.3) 07/05/18 11:22 POC Creatinine 1.0 mg/dL (0.7-1.3) 07/05/18 11:30 Estimated GFR > 60 07/05/18 11:22 Glucose 211 mg/dL (70-100) H 07/05/18 11:22 POC Glucose 211 mg/dL (70-100) H 07/05/18 11:30 Calcium 8.4 mg/dL (8.5-10.4) L 07/05/18 11:22 POC Troponin I 0.21 ng/mL (0.00-0.08) H 07/05/18 11:11 NT-Pro-B Natriuret Pep 27380 pg/mL (0-450) H 07/05/18 11:22 Visualized and Interpreted Chest x-ray results: Yes Visualized and Interpreted imaging results: Yes Interpretation: CXR: bibasilar predominant alveolar opacities, no effusions, mild cardiomegaly, curly B lines and fluid in fissure consistent with volume overload (interp by me) Visualized and Interpreted EKG results: Yes EKG additional interpertation: ECG: A-V paced, negative for acute ischemia by Sgarbossa criteria Assessment & Plan Assessment: 78yo azeri speaking M with history of CAD s/p CABG complicated by ICMP with last LVEF 25% now with BiV ICD presents with cough and chest pain with mildly elevated troponin, significantly elevated BNP, and CXR consistent with volume overload. Plan: 1. Acute on chronic systolic CHF: Likely exacerbated by significant fluids he received while hospitalized in [place]. Also concerns for medication non- adherence. - Lasix 40mg IV BID, monitor I/Os, weight - Hold on repeating TTE - Continue lisinopril, carvedilol - Plan to repeat BNP prior to discharge - BiV ICD interrogation while here 2. Elevated troponin: Suspect demand in setting of volume overload, less likely ACS. - Trend. If significantly increasing, plan for heparin gtt and alert cardiology. - With recent travel and h/o DVT, consider CTA chest to rule out PE if not improving as expected 3. LUE edema - Venous doppler US to r/o DVT 4. Cough: Suspect r/t pulmonary edema. S/p levofloxacin in ED. I suspect his chest discomfort is related to his cough. - Hold on additional antibiotics. Check RVP and procalcitonin. 5. CAD: S/p 5v CABG in 2017 - Aspirin and statin not on med list, will start 6. Diabetes - Continue metformin, add SSI 7. H/o atrial fibrillation: Post-operative. None on last ICD check. Not anticoagulated as had KACIE closure. 8. H/o RUE DVT: 01/2017. Reportedly non-compliant with anticoagulation at that time. VTE ppx: LMWH Code: full Diet: cardiac Dispo: Admit as inpatient as will likely require >2 midnights for diuresis
[2018-07-05] MEDS ORDERED: HEPARIN 10,000 UNIT/10 ML MDV (1,000 UNIT/ML) IVP PRN (16:20)
[2018-07-05] MEDS ORDERED: HEPARIN/DEXTROSE 500 ML IV SCH (16:30)
[2018-07-05] MEDS ORDERED: HEPARIN 10,000 UNIT/10 ML MDV (1,000 UNIT/ML) IVP ONE (17:15)
[2018-07-05] MEDS: FUROSEMIDE 40 MG/4 ML VIAL IVP SCH (17:15)
[2018-07-05 17:30] LABS: PLATELET COUNT 133 10^3/uL (150-400)
[2018-07-05 17:35] LABS: INR 1.21 (0.83-1.16); PROTIME(PATIENT) 15.5 SEC (12.0-15.0)
[2018-07-05] MEDS: INSULIN LISPRO 100 UNIT/ML SC SCH (18:16)
--- NOTE | 2018-07-05 19:16 | GCON ---
[f rep st] CONSULTATION CARDIAC CONSULTATION DATE OF CONSULTATION: 07/05/2018 CHIEF COMPLAINT: Shortness of breath and chest pain. HISTORY OF PRESENT ILLNESS: The patient is a 78-year-old male with a history of coronary artery disease status post remote CABG, ischemic cardiomyopathy with an ejection fraction of 25%, history of sinus arrest status post pacemaker with an upgrade to a BiV ICD in January 2018. He was hospitalized in [place] for 8 days secondary to shortness of breath and cough. His son states he was treated for pneumonia at that time. He denies any improvement in his symptoms at the time of discharge from the hospital, but he was given a prescription to help him with his drive to the [facility]. It is unclear what he received, but he did note an improvement in his shortness of breath and cough with that medication. Ultimately, he presented to [facility] ER with chest pain and cough. His BNP is 11,500 and troponin is minimally elevated. His chest pain is worse with coughing and deep breaths. His chest x-ray shows bilateral lower lobe pneumonia versus congestive heart failure. He did note that he received lots of fluids while residing at the hospital in [place]. PAST MEDICAL HISTORY: Diabetes, hyperlipidemia, hypertension, coronary artery disease status post CABG remotely, ischemic cardiomyopathy with an ejection fraction of 25%, sinus arrest status post pacemaker, upgrade to a BiV ICD in January 2018, left bundle branch block. FAMILY HISTORY: Noncontributory. SOCIAL HISTORY: He is currently accompanied by his son. He was visiting [place] , but plans to reside in [place]. He denies any ongoing tobacco use or alcohol use. HOME MEDICATIONS: Coreg 3.125 mg b.i.d., lisinopril 20 mg daily, metformin 500 mg daily, Lasix 40 mg daily. ALLERGIES: Erythromycin. REVIEW OF SYSTEMS: I did note swelling of his left arm. Otherwise, review of systems is negative except what is stated in the H and P. PHYSICAL EXAMINATION: GENERAL: Patient appears in no acute distress. VITALS: Blood pressure 163/100, heart rate 75, oxygen saturation 95% on room air, afebrile. HEENT: He does have abrasions on his lower lip. Otherwise, unremarkable. NECK: No carotid bruits. LUNGS: He has rhonchi auscultated at bilateral bases without any wheezing. CARDIAC: Regular rate and rhythm without any significant murmurs, rubs, or gallops appreciated. His ICD site is clean and intact without any evidence of infection. He is tender to palpation of the upper chest. ABDOMEN: Soft, nontender, nondistended. EXTREMITIES: Palpable pulses bilaterally with mild edema. SKIN: No obvious rashes or ecchymosis identified. NEUROLOGICAL: Nonfocal. PSYCHIATRIC: Mood and affect appropriate. LABORATORY: Troponin 0.21. BNP 11,500. BMP within normal limits. WBC is 9.33 , hemoglobin 14.7, hematocrit 44.1, platelets 148. DIAGNOSTIC TESTING: EKG reveals AV pacing at a rate of 63. Chest x-ray: Bilateral lower lobe pneumonia. My impression, this may be related to heart failure. ASSESSMENT: The patient is a 78-year-old male with a history of coronary artery disease, ischemic cardiomyopathy, diabetes, and hypertension, who presents with heart failure. PLAN: The patient was recently treated for pneumonia in [place]. During his hospitalization, he received a lot of fluids per patient. He now presents with a BNP of 11,500 and does appear volume overloaded. I think his shortness of breath is related to iatrogenic fluids. He will be started on Lasix IV 40 mg b.i.d. I doubt this represents a recurrent pneumonia given that his white blood cell count is normal and he is afebrile. We will continue to monitor. He has a history of ischemic cardiomyopathy with an ejection fraction of 25%. His pacer was upgraded to a BiV ICD in January of 2018. He did note that he has felt well with the upgrade. He will continue Coreg and lisinopril for his ischemic cardiomyopathy. He has a history of coronary artery disease and remote CABG. His troponin is mildly elevated at 0.21, which I think is related to his volume overload. He is having chest pain, but it is atypical for coronary disease. It is reproducible with cough and palpation of the upper chest. I doubt this represents acute coronary syndrome. He has edema of his left arm, which is likely related to volume overload. He will get an ultrasound to rule out DVT given his recent drive from [place]. We will continue to monitor, especially given his recent upgrade of BiV device. /[id number]/MODL MTDD
[2018-07-05] MEDS: CARVEDILOL 3.125 MG TAB PO SCH (21:54)
[2018-07-06] MEDS: oxyCODONE IR 5 MG TAB PO PRN (00:11)
[2018-07-06] MEDS: metFORMIN HCL 500 MG TAB PO SCH (08:52)
[2018-07-06] MEDS: CARVEDILOL 3.125 MG TAB PO SCH ×2 (08:52→21:25)
[2018-07-06] MEDS: LISINOPRIL 20 MG TAB PO SCH (08:52)
[2018-07-06] MEDS: FUROSEMIDE 40 MG/4 ML VIAL IVP SCH ×2 (08:52→15:19)
[2018-07-06] MEDS: ATORVASTATIN CALCIUM 40 MG TAB PO SCH (08:53)
[2018-07-06] MEDS: INSULIN LISPRO 100 UNIT/ML SC SCH ×3 (08:53→17:10)
[2018-07-06] MEDS: ASPIRIN 81 MG CHEWABLE TAB PO SCH (08:53)
[2018-07-06] MEDS ORDERED: ENOXAPARIN 40 MG/0.4 ML SYR SC SCH (09:00)
--- NOTE | 2018-07-06 10:27 | PDCARPN ---
Cardiology Progress Note Chief Complaint: SOB/cough Assessment/Plan: Assessment: Luis M is a 78 y/o M with a history of CAD s/p CABG, ICMP with EF of 25%, h/o sinus arrest s/p pacer, and upgrade to a BIV ICD in 01/2018 for CHF and LBBB. He was admitted to a hospital in [place] two weeks ago and treated for pneumonia per patient. He drove back to from [place] just prior to admission and presented with SOB, cough, and CP. His troponin was minimally elevated at .21 and remained flat. His BNP was 11,500. He was started on IV Lasix and his cough and SOB have improved. He also noted to have left arm edema which started within 24 hours. He was found to have a DVT of the left arm extending into the internal jugular vein. He was started on Heparin. Plan: 1. Systolic CHF- likely related to iatrogenic fluids during his hospitalization in [place] for pneumonia. He states he has been compliant with his medications. Continue Lasix 40mg IV BID. Likely transition to PO lasix tomorrow. Electrolyte protocol. 2. ICMP with EF of 25%- Continue Lisinopril and Coreg. 3. CAD s/p CABG- minimally elevated trop related to CHF and strain. His CP is atypical for CAD. Continue medical management with Aspirin, Coreg, and Lipitor. 4. DVT- on Heparin will begin Coumadin today. 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 He will need lifelong anticoagulation. 5. HTN- He is hypertensive this AM but did not receive his AM meds. If he remains hypertensive titrate Coreg to 6.25mg BID. 6. Pneumonia- treated 2 weeks ago. Currently afebrile and WBC normal. No abx at this time per Dr. Rosario. 07/06/18 10:39 Subjective: He states his cough and SOB improved from yesterday. He has CP when he coughs only. His left arm and leg edema has improved. Reviewed/Discussed With: hospitalist Objective: Vital Signs (8 Hrs) Temp Pulse Resp BP Pulse Ox 07/06/18 08:52 84 155/95 H 07/06/18 07:51 36.9 C 84 16 155/95 H 96 07/06/18 03:43 37.1 C 79 18 148/89 H 92 Intake/Output (24 Hrs) 07/05/18 07/06/18 07/07/18 05:59 05:59 05:59 Intake Total 1165 Output Total 2375 200 Balance -1210 -200 Intake: Oral (ml) 725 IV Infused (ml) 440 Heparin/Dextrose 500 ml @ 290 Per Protocol IV CONT POLO Rx#:[id number] levOFLOXACIN 750 MG/ 150 DEXTROSE 150 ml @ 100 mls /hr IV EDNOW ONE Rx#: [id number] Output: Urine (ml) 2375 200 Urinal 2375 200 Other: Weight 72.5 kg 70.3 kg Intake Quantity Yes Sufficient Number of Voids Urinal 3 Result Diagrams: 07/06/18 05:15 07/06/18 05:15 Cardiac Labs: Cardiac Lab Results (72 Hrs) 07/05/18 16:50 Troponin I 0.192 H Telemetry: Intermittantly paced with PAC's - Physical Exam Constitutional: no apparent distress Cardiovascular: regular rate and rhythm, other (mild edema of the left leg and left arm. Improved from yesterday.\) Peripheral Pulses: 2+: dorsalis-pedis (R), dorsalis-pedis (L) Respiratory: expiratory wheeze, inspiratory crackles Neurologic: AAOx3 ICD10 Worksheet Patient Problems: Problems Problem Status Onset Acute coronary syndrome Acute Chest pain Acute Elevated troponin Acute Pneumonia Acute Acute blood loss anemia Acute Acute renal failure Acute Mitral valve regurgitation Acute S/P CABG x 5 Acute ~12/29/16 CAD, multiple vessel Chronic Ischemic cardiomyopathy Chronic
--- NOTE | 2018-07-06 11:30 | PDMN ---
Medical Necessity Medical necessity: Pt meets inpt criteria per MD order and MCG M-190, Heart Failure, A-2 days. 78 y/o w/hx CAD s/p CABG, ICMP w/EF 25%, hx sinus arrest s/ p pacer and upgrade to BiV ICD in 01/2018 for CHF and LBBB, recent hospitalization in [place], treated for PNA, presenting now w/SOB, cough, cp, and L arm pain/swelling, troponin elevated initially, BNP 11,500, admitted w/ CHF and extensive DVT to LUE (per LUE ultrasound: diffuse acute deep venous thrombosis involving entire L arm and L internal jugular vein). IV Heparin, IV Lasix, ongoing med nec monitoring/treatment, est LOS>2MN.
[2018-07-06] MEDS ORDERED: POLYETHYLENE GLYCOL 3350 17 GM PKT PO PRN (11:38)
[2018-07-06] MEDS ORDERED: BISACODYL 10 MG SUPP PR PRN (11:38)
[2018-07-06] MEDS ORDERED: MAGNESIUM HYDROXIDE 30 ML UDCUP PO PRN (11:38)
[2018-07-06] MEDS: ENOXAPARIN 80 MG/0.8 ML SYR SC SCH ×2 (12:29→19:37)
--- NOTE | 2018-07-06 13:11 | HOSPPROG ---
Hospitalist Progress Note Assessment/Plan: 78yo khmer speaking M with history of CAD s/p CABG complicated by ICMP with last LVEF 25% now with BiV ICD presents with cough and chest pain with mildly elevated troponin, significantly elevated BNP, and CXR consistent with volume overload. 1. Acute on chronic systolic CHF: Remains volume overloaded but improving - Lasix 40mg IV BID, monitor I/Os, weight. Possibly transition to PO diuretics tomorrow - Continue lisinopril, carvedilol - Plan to repeat BNP prior to discharge 2. Elevated troponin: Down-trending. Demand in setting of above. 3. LUE and LIJ DVT: - Stop heparin gtt. Start weight-based LMWH bridge with warfarin 4. Cough: Suspect r/t pulmonary edema. RVP and procalcitonin negative - No antibiotics 5. CAD: S/p 5v CABG in 2017 - Aspirin and statin not on med list, have started while here 6. Diabetes - Continue metformin, add SSI 7. H/o atrial fibrillation: Post-operative. None on last ICD check. Now anticoagulated. Had KACIE closure. 8. H/o LLE DVT: 01/2017. Reportedly non-compliant with anticoagulation at that time. VTE ppx: therapeutic anticoagulation Code: full Diet: cardiac Dispo: Remain inpatient for ongoing IV diuresis Subjective: Breathing better today, still coughing. No fevers. LUE swelling a bit better. Objective: Vital Signs Temp Pulse Resp BP Pulse Ox 36.8 C 78 16 128/80 H 92 07/06/18 11:17 07/06/18 11:17 07/06/18 11:17 07/06/18 11:17 07/06/18 11:17 Microbiology 07/05/18 13:30 Respiratory Panel (PCR) - Final Nasal, Sinus - Swab No Organism Detected By Pcr Laboratory Results 07/06/18 05:15 07/06/18 05:15 07/05/18 07/06/18 07/07/18 05:59 05:59 05:59 Intake Total 1165 540 Output Total 2375 200 Balance -1210 340 PT 15.5 SEC (12.0-15.0) H 07/05/18 16:50 INR 1.21 (0.83-1.16) H 07/05/18 16:50 - Physical Exam Constitutional: no apparent distress, appears nourished, not in pain Eyes: PERRL, anicteric sclera, EOMI Ears, Nose, Mouth, Throat: other (abrasions on lower lip, several loose teeth) Cardiovascular: regular rate and rhythym, no murmur, rub, or gallop, JVD, edema (2+ BLE) Respiratory: no respiratory distress, inspiratory crackles Gastrointestinal: normoactive bowel sounds, soft, non-tender abdomen, no palpable masses Genitourinary: no bladder fullness, no bladder tenderness, no renal bruits Skin: no rashes or abrasions, no fluctuance, no induration Musculoskeletal: full muscle strength, no muscle tenderness, normal joint ROM Neurologic: AAOx3, sensation intact bilaterally Psychiatric: interacting appropriately, not anxious, not encephalopathic, thought process linear ICD10 Worksheet Patient Problems: Problems Problem Status Onset Acute coronary syndrome Acute Chest pain Acute Elevated troponin Acute Pneumonia Acute Acute blood loss anemia Acute Acute renal failure Acute Mitral valve regurgitation Acute S/P CABG x 5 Acute ~12/29/16 CAD, multiple vessel Chronic Ischemic cardiomyopathy Chronic
[2018-07-06] MEDS: PETROLATUM,WHITE 28.35 GM TUBE TP PRN ×2 (13:53→18:04)
--- NOTE | 2018-07-06 14:07 | ASMTCMCOM ---
CM Note CM Note Notes: Pts case discussed in treatment rounds. Pt is a 78 y/o man admitted for acute coronary syndrome, CHF and pneumonia. Pt is listed as self pay. Carrie mckay/ Melanie is following up w/ his family. Pt is guyanese speaking. Pt is living w/ his son. Therapies have been ordered and awaiting recommendations. Needs are TBD at this time. CM to follow. Plan: TBD Date Signed: 07/06/2018 02:07 PM Electronically Signed By:AJAY Burton
[2018-07-06] MEDS: SODIUM CL NASAL 45 ML BTL EACHNARE PRN ×2 (14:33→18:04)
[2018-07-06] MEDS ORDERED: WARFARIN SODIUM 5 MG TAB PO ONE (16:00)
[2018-07-06] MEDS: SENNOSIDES/DOCUSATE SODIUM TAB PO SCH (19:37)
[2018-07-07] MEDS: oxyCODONE IR 5 MG TAB PO PRN ×2 (02:44→20:04)
[2018-07-07] MEDS: ATORVASTATIN CALCIUM 40 MG TAB PO SCH (08:41)
[2018-07-07] MEDS: CARVEDILOL 3.125 MG TAB PO SCH ×2 (08:42→20:04)
[2018-07-07] MEDS: metFORMIN HCL 500 MG TAB PO SCH (08:43)
[2018-07-07] MEDS: LISINOPRIL 20 MG TAB PO SCH (08:44)
[2018-07-07] MEDS: SENNOSIDES/DOCUSATE SODIUM TAB PO SCH ×2 (08:45→20:04)
[2018-07-07] MEDS: ASPIRIN 81 MG CHEWABLE TAB PO SCH (08:46)
[2018-07-07] MEDS: ENOXAPARIN 80 MG/0.8 ML SYR SC SCH ×2 (08:47→20:04)
[2018-07-07] MEDS: INSULIN LISPRO 100 UNIT/ML SC SCH ×3 (08:50→18:04)
--- NOTE | 2018-07-07 10:35 | PDCARPN ---
Cardiology Progress Note Assessment/Plan: Assessment: Luis M is a 78 y/o M with a history of CAD s/p CABG, ICMP with EF of 25%, h/o sinus arrest s/p pacer, and upgrade to a BIV ICD in 01/2018 for CHF and LBBB. He was admitted to a hospital in [place] two weeks ago and treated for pneumonia per patient. He drove back to from [place] just prior to admission and presented with SOB, cough, and CP. His troponin was minimally elevated at .21 and remained flat. His BNP was 11,500. He was started on IV Lasix and his cough and SOB have improved. He also noted to have left arm edema which started within 24 hours. He was found to have a DVT of the left arm extending into the internal jugular vein. He was started on Heparin. Overall he feels better. He had a syncopal event while in [place]. He was on a high bed and reached up to grab an IV bag and had true syncope. Plan: 1. Systolic CHF- likely related to iatrogenic fluids during his hospitalization in [place] for pneumonia. He states he has been compliant with his medications. Transition to PO Lasix tomorrow. 2. ICMP with EF of 25%- Continue Lisinopril and Coreg. 3. CAD s/p CABG- minimally elevated trop related to CHF and strain. His CP is atypical for CAD. Continue medical management with Aspirin, Coreg, and Lipitor. 4. DVT- on Heparin will begin Coumadin today. 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 He will need lifelong anticoagulation. 5. HTN- He is hypertensive this AM but did not receive his AM meds. If he remains hypertensive titrate Coreg to 6.25mg BID. 6. Pneumonia- treated 2 weeks ago. Currently afebrile and WBC normal. No abx at this time per Dr. Rosario. 7. Syncope- two weeks ago while in [place]. Echo and ICD interrogation pending. He has not had any ventricular arrhythmias on tele. 07/07/18 13:41 Subjective: His SOB has improved but he continues to complain of a nonproductive cough. Edema in his left arm and legs is improving. He denies any dizziness. Reviewed/Discussed With: hospitalist Objective: Vital Signs (8 Hrs) Temp Pulse Resp BP Pulse Ox 07/07/18 08:44 140/81 H 07/07/18 08:42 80 140/80 H 07/07/18 03:47 37.1 C 74 18 135/79 H 95 Intake/Output (24 Hrs) 07/06/18 07/07/18 07/08/18 05:59 05:59 05:59 Intake Total 1165 2190 Output Total 2375 1925 Balance -1210 265 Intake: Oral (ml) 725 2190 IV Infused (ml) 440 Heparin/Dextrose 500 ml @ 290 Per Protocol IV CONT POLO Rx#:[id number] levOFLOXACIN 750 MG/ 150 DEXTROSE 150 ml @ 100 mls /hr IV EDNOW ONE Rx#: [id number] Output: Urine (ml) 2375 1925 Urinal 2375 1925 Other: Weight 72.5 kg 69.4 kg Intake Quantity Yes Yes Sufficient Number of Voids Urinal 3 2 Number of Stools Toilet 1 Result Diagrams: 07/07/18 12:15 07/07/18 12:15 Cardiac Labs: Cardiac Lab Results (72 Hrs) 07/05/18 16:50 Troponin I 0.192 H Telemetry: Paced - Physical Exam Constitutional: WDWN, no apparent distress Eyes: other (two abrassions with scabbing on his bottom lip.) Cardiovascular: regular rate and rhythm Peripheral Pulses: 2+: dorsalis-pedis (R), dorsalis-pedis (L) Respiratory: inspiratory crackles (R>L lung base) Skin: other (trace edema of the left leg.) ICD10 Worksheet Patient Problems: Problems Problem Status Onset Acute coronary syndrome Acute Chest pain Acute Elevated troponin Acute Pneumonia Acute Acute blood loss anemia Acute Acute renal failure Acute Mitral valve regurgitation Acute S/P CABG x 5 Acute ~12/29/16 CAD, multiple vessel Chronic Ischemic cardiomyopathy Chronic
[2018-07-07] MEDS ORDERED: PERFLUTREN LIPID MICROSPHERES 1.1 MG/ML VIAL IV ONE (11:57)
[2018-07-07] MEDS: FUROSEMIDE 40 MG/4 ML VIAL IVP SCH (12:22)
[2018-07-07 13:02] LABS: INR 1.27 (0.83-1.16); PROTIME(PATIENT) 16.1 SEC (12.0-15.0)
--- NOTE | 2018-07-07 13:53 | ECHO ---
[email or web address] [address] Main: [phone] Fax: Transthoracic Echocardiogram Name: CRISTEL FISH MR#: [id number] Study Date: 07/07/2018 Study Time: 11:14 AM Date of : 1940 Age: 78 year(s) Height: 162.6 cm (64 in.) Weight: 69.4 kg (153 lb.) BSA: 1.75 m2 Gender: Male Examination: Echo with Definity Indication: Cardiac: syncope Image Quality: Adequate Contrast: 0.165 mg I.V. dose of Definity was administered to improve endocardial border definition. Requested by: Milagros Vital BP: 139 mmHg/82 mmHg Heart Rate: Rhythm: Indication: Cardiac: syncope Procedure Staff House Manager: Alejandra Carroll [facility] Reading Physician: Jose Acuna MD Requesting Provider: Conclusions: Mildly dilated left ventricle. Mild to moderate LVH. Severely reduced systolic LV function. EF is 23 %. Global hypokinesis. Grade 2 diastolic dysfunction (pseudonormalized LV filling pattern). No LV apical thrombus. Moderately dilated right ventricle. Mildly reduced RV function. There is a ICD/Pacer wire noted in the right ventricle. The left atrium is severely dilated. There is a pacemaker lead noted in the right atrium. There is mild thickening of the mitral valve leaflets. Mild to moderate mitral regurgitation. Aortic sclerosis is present. There is no aortic valve regurgitation. No aortic valve stenosis is present. Mild tricuspid regurgitation is present. Right ventricular systolic pressure measures 53mmHg. No pericardial effusion. No significant change compared to 12/31/2016. Measurements: Chambers Valvular Assessment AV/MV Valvular Assessment TV/PV Normal Normal Normal Name Value Range Name Value Range Name Value Range TR Vmax: 3.45 mm/s ( - ) Patient: CRISTEL FISH Study Date: 07/07/2018 Page 1 of 3 11:14 AM Ao Jen (2D): 3.3 cm (1.4 cm-2.6 AV Vmax: 1.41 m/s (1 m/s-1.7 TR PGmax: 48 mmHg ( - ) cm) m/s) syst. PAP: 53 mmHg ( - ) IVSd (2D): 1.4 cm (0.6 cm-1.1 AV maxP mmHg ( - ) PV Vmax: 0.91 m/s (0.6 m/s-0.9 cm) AV meanP mmHg ( - ) m/s) LVDd (2D): 5.6 cm (4.2 cm-5.9 MELISSA (VTI): 1.6 cm ( - ) PV PGmax: 3 mmHg ( - ) cm) MV E Vmax: 0.89 m/s ( - ) LVDs (2D): 4.8 cm (2.1 cm-4 MV A Vmax: 0.76 m/s ( - ) cm) MV E/A: 1.17 ( - ) LVPWd (2D): 1.0 cm (0.6 cm-1 cm) MV meanP mmHg ( - ) LVOTd 2.1 cm 2.1 cm mm MVA (Vmax): 2.9 m/s ( - ) LVEF (BP): 23 % (>=55 %) RVDd(2D): 4.6 cm (1.9 cm-3.8 cmmm) Continued Measurements: Chambers Valvular Assessment AV/MV Valvular Assessment TV/PV Name Value Name Value Name Value LADs: 4.6 cm MV Annulus: 3.3 cm CVP (est.): 5 mmHg LADs Lon.2 cm MV DecTime: 165 m/s LA Area: 27.5 cm2 MV E' Septal: 0.05 m/s LA Volume: 88 ml MV E/E' Septal: 17.50 LA Volume Index: 50.3 ml/m2 MV E/E' Lateral: 14.50 TAPSE: 1.5 cm MV VTI: 15.50 cm RA Area: 24.0 cm2 MR ERO: 0.180 cm2 MR PISA radius: 6 mm MR Reg. Volume: 32 ml MR Reg. Fraction: 24 % Additional Vessels Name Value Ao Ascendin.6 cm Findings: Left Ventricle: Mildly dilated left ventricle. Mild to moderate LVH. Severely reduced systolic LV function. EF is 23 %. Global hypokinesis. Grade 2 diastolic dysfunction (pseudonormalized LV filling pattern). No LV apical thrombus. Right Ventricle: Moderately dilated right ventricle. Mildly reduced RV function. There is a ICD/Pacer wire noted in the right ventricle. Left Atrium: The left atrium is severely dilated. Right Atrium: The right atrium is moderately to severely dilated. There is a pacemaker lead noted in the right atrium. Mitral Valve: There is mild thickening of the mitral valve leaflets. Mild to moderate mitral regurgitation. No mitral stenosis is present. Aortic Valve: The aortic valve is tri-leaflet. Aortic sclerosis is present. There is no aortic valve regurgitation. No aortic valve stenosis is present. Tricuspid Valve: The tricuspid valve is normal in appearance and function. Mild tricuspid regurgitation is present. Right ventricular systolic pressure measures 53mmHg. The pulmonary artery pressure is moderately increased. Pulmonic Valve: The pulmonic valve is normal in appearance. Mild pulmonic valve regurgitation is noted. Aorta: Patient: CRISTEL FISH Study Date: 07/07/2018 Page 2 of 3 11:14 AM Normal size aortic root measuring 3.4 cm, measuring 3.3 cm. Normal size ascending aorta measuring 2.6 cm. IVC: Normal size and course of the IVC. Pericardium: No pericardial effusion. (No Signature Object) Patient: CRISTEL FISH Study Date: 07/07/2018 Page 3 of 3 11:14 AM [id number]
--- NOTE | 2018-07-07 14:57 | ASMTCMCOM ---
CM Note CM Note Notes: Pts case discussed in tx rounds. Pt will require lifelong coumadin. CM spoke to pts grand daughter Genevieve and daughter Miriam. Miriam reports that pt does not qualify for Medicaid because pts son, who is the sponsor makes too much money. Amngo, son will be in today for coumadin education. Miriam reports that pt goes to [facility]. She reports that pt is under their low income program. CM will need to make an appointment w/ [facility] once a d/c date has been identified. PT is recommending HC. Pt does not qualify for any HC services. CM to follow. Date Signed: 07/07/2018 02:56 PM Electronically Signed By:AJAY Burton
--- NOTE | 2018-07-07 15:34 | HOSPPROG ---
Hospitalist Progress Note Assessment/Plan: 78yo tamazight speaking M with history of CAD s/p CABG complicated by ICMP with last LVEF 25% now with BiV ICD presents with cough and chest pain with mildly elevated troponin, significantly elevated BNP, and CXR consistent with volume overload. 1. Acute on chronic biventricular systolic CHF: Remains volume overloaded but improving, BNP halved. LVEF 23%, similar to prior - Lasix 40mg IV BID, monitor I/Os, weight. Transition to PO diuretics tomorrow - Continue lisinopril, carvedilol - Cardiology following 2. Melena: - Monitor H/H - If continues, would consult GI for endoscopy (at least EGD, possibly c- scope) - Start IV PPI 3. Elevated troponin: Down-trending. Demand in setting of above. 4. LUE and LIJ DVT: - Continue LMWH bridge and warfarin. If he is able to obtain insurance prior to dc, would be reasonable to switch to DOAC. 5. Recent syncopal episode: Occurred while hospitalized in [place] - Interrogate pacemaker/icd 6. Cough: Suspect r/t pulmonary edema. RVP and procalcitonin negative - No antibiotics 7. CAD: S/p 5v CABG in 2017 - Aspirin and statin not on med list, have started while here 8. Diabetes - Continue metformin, added SSI 9. H/o atrial fibrillation: Post-operative. None on last ICD check. Now anticoagulated. Had KACIE closure. 10. H/o LLE DVT: 01/2017. Reportedly non-compliant with anticoagulation at that time. VTE ppx: therapeutic anticoagulation Code: full Diet: cardiac Dispo: Remain inpatient for ongoing IV diuresis Subjective: Feeling well, still with some cough. Dancing when working with PT today. Reportedly had a dark black stool today, no ralph blood. Reports similar looking stool 2 days ago. Objective: Vital Signs Temp Pulse Resp BP Pulse Ox 36.9 C 81 18 139/85 H 93 07/07/18 12:30 07/07/18 12:30 07/07/18 12:30 07/07/18 12:00 07/07/18 12:30 Laboratory Results 07/07/18 12:15 07/07/18 12:15 07/06/18 07/07/18 07/08/18 05:59 05:59 05:59 Intake Total 1165 2190 Output Total 2375 1925 Balance -1210 265 PT 16.1 SEC (12.0-15.0) H 07/07/18 12:15 INR 1.27 (0.83-1.16) H 07/07/18 12:15 - Physical Exam Constitutional: no apparent distress, appears nourished, not in pain Eyes: PERRL, anicteric sclera, EOMI Ears, Nose, Mouth, Throat: other (abrasions on lower lips) Cardiovascular: regular rate and rhythym, systolic murmur, JVD, edema Respiratory: no respiratory distress, reduced air movement, inspiratory crackles Gastrointestinal: normoactive bowel sounds, soft, non-tender abdomen, no palpable masses Genitourinary: no bladder fullness, no bladder tenderness, no renal bruits Skin: no rashes or abrasions, no fluctuance, no induration Musculoskeletal: full muscle strength, no muscle tenderness, normal joint ROM Neurologic: AAOx3 Psychiatric: interacting appropriately ICD10 Worksheet Patient Problems: Problems Problem Status Onset Acute coronary syndrome Acute Chest pain Acute Elevated troponin Acute Pneumonia Acute Acute blood loss anemia Acute Acute renal failure Acute Mitral valve regurgitation Acute S/P CABG x 5 Acute ~12/29/16 CAD, multiple vessel Chronic Ischemic cardiomyopathy Chronic
[2018-07-07] MEDS ORDERED: WARFARIN SODIUM 5 MG TAB PO ONE (16:00)
[2018-07-07] MEDS ORDERED: PANTOPRAZOLE SODIUM 40 MG VIAL IVP SCH (16:15)
[2018-07-07] MEDS: PANTOPRAZOLE SODIUM 40 MG TAB PO SCH (17:03)
[2018-07-08 04:51] LABS: INR 1.36 (0.83-1.16); PROTIME(PATIENT) 16.9 SEC (12.0-15.0)
[2018-07-08] MEDS: metFORMIN HCL 500 MG TAB PO SCH (08:20)
[2018-07-08] MEDS: PANTOPRAZOLE SODIUM 40 MG TAB PO SCH (08:21)
[2018-07-08] MEDS: oxyCODONE IR 5 MG TAB PO PRN ×2 (08:21→18:44)
[2018-07-08] MEDS: CARVEDILOL 3.125 MG TAB PO SCH (08:22)
[2018-07-08] MEDS: SENNOSIDES/DOCUSATE SODIUM TAB PO SCH ×2 (08:22→20:33)
[2018-07-08] MEDS: FUROSEMIDE 40 MG TAB PO SCH (08:23)
[2018-07-08] MEDS: LISINOPRIL 20 MG TAB PO SCH (08:23)
[2018-07-08] MEDS: ASPIRIN 81 MG CHEWABLE TAB PO SCH (08:23)
[2018-07-08] MEDS: ENOXAPARIN 80 MG/0.8 ML SYR SC SCH ×2 (08:24→20:33)
[2018-07-08] MEDS: ATORVASTATIN CALCIUM 40 MG TAB PO SCH (08:24)
[2018-07-08] MEDS: INSULIN LISPRO 100 UNIT/ML SC SCH ×3 (08:25→18:43)
--- NOTE | 2018-07-08 08:25 | HOSPPROG ---
Hospitalist Progress Note Assessment/Plan: 1. Acute on chronic biventricular systolic CHF: LVEF 23%, similar to prior - back on PO Lasix. Continue lisinopril, coreg - Cardiology following 2. Melena: H/H stable. No BMs today, check FOBT, If continues,consult GI for endoscopy (at least EGD, possibly c-scope). IV PPI 3. Elevated troponin: Down-trending. Demand in setting of above. 4. LUE and LIJ DVT: - Continue LMWH bridge and warfarin. If he is able to obtain insurance prior to dc, would be reasonable to switch to DOAC. 5. Recent syncopal episode: Occurred while hospitalized in [place] - Interrogate pacemaker/icd 6. Cough: Suspect r/t pulmonary edema. RVP and procalcitonin negative. 7. CAD: S/p 5v CABG in 2017 - Aspirin and statin not on med list, have started while here 8. Diabetes: metformin, added SSI 9. H/o atrial fibrillation: Post-operative. None on last ICD check. Now anticoagulated. Had KACIE closure. 10. H/o LLE DVT: 01/2017. Reportedly non-compliant with anticoagulation at that time. Interview/exam done with in-person Area Supervisor Subjective: "feel good" No CP or SOB. No stool today Objective: Vital Signs Temp Pulse Resp BP Pulse Ox 36.4 C 73 12 163/90 H 92 07/08/18 07:20 07/08/18 07:20 07/08/18 07:20 07/08/18 07:20 07/08/18 07:20 Laboratory Results 07/08/18 03:32 07/08/18 03:32 07/07/18 07/08/18 07/09/18 05:59 05:59 05:59 Intake Total 2190 1180 Output Total 1925 1225 Balance 265 -45 PT 16.9 SEC (12.0-15.0) H 07/08/18 03:32 INR 1.36 (0.83-1.16) H 07/08/18 03:32 - Time Spent With Patient Time Spent with Patient: greater than 35 minutes Time Spent with Patient: Greater than 35 minutes spent on this patients care, greater than 50% of time spent counseling, educating, and coordinating care regarding the above mentioned plan. - Physical Exam Constitutional: no apparent distress Ears, Nose, Mouth, Throat: poor dentition, other (hematoma left lip) Cardiovascular: regular rate and rhythym, systolic murmur, JVD Respiratory: no respiratory distress, inspiratory crackles Gastrointestinal: normoactive bowel sounds Genitourinary: no bladder fullness Skin: warm Musculoskeletal: full muscle strength Neurologic: AAOx3, CN II-XII Intact Psychiatric: interacting appropriately ICD10 Worksheet Patient Problems: Problems Problem Status Onset Acute coronary syndrome Acute Chest pain Acute Elevated troponin Acute Pneumonia Acute Acute blood loss anemia Acute Acute renal failure Acute Mitral valve regurgitation Acute S/P CABG x 5 Acute ~12/29/16 CAD, multiple vessel Chronic Ischemic cardiomyopathy Chronic
--- NOTE | 2018-07-08 13:38 | PDCARPN ---
Cardiology Progress Note Chief Complaint: Cough Assessment/Plan: Assessment: Luis M is a 78 y/o M with a history of CAD s/p CABG, ICMP with EF of 23%, h/o sinus arrest s/p pacer, and upgrade to a BIV ICD in 01/2018 for CHF and LBBB. He was admitted to a hospital in [place] two weeks ago and treated for pneumonia per patient. He drove back to from [place] just prior to admission and presented with SOB, cough, and CP. His troponin was minimally elevated at .21 and remained flat. His BNP was 11,500. He was started on IV Lasix and his cough and SOB have improved. He also noted to have left arm edema which started within 24 hours. He was found to have a DVT of the left arm extending into the internal jugular vein. He was started on Heparin. Overall he feels better. He had a syncopal event while in [place]. He was on a high bed and reached up to grab an IV bag and had true syncope. Plan: 1. Systolic CHF- likely related to iatrogenic fluids during his hospitalization in [place] for pneumonia. He states he has been compliant with his medications. Transition to PO Lasix. 2. ICMP with EF of 23%- Continue Lisinopril and Coreg. 3. CAD s/p CABG- minimally elevated trop related to CHF and strain. His CP is atypical for CAD. Continue medical management with Aspirin, Coreg, and Lipitor. CP has resolved. 4. DVT- on Lovenox and Coumadin. INR is subtherapeutic. 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 He will need lifelong anticoagulation. 5. HTN- Coreg titrated to 6.25mg BID. 6. Pneumonia- treated 2 weeks ago. Currently afebrile and WBC normal. No abx at this time per Dr. Rosario. 7. Syncope- two weeks ago while in [place]. Echo showed EF dropped from 35% to 23%. His RV is now moderately dilated with mildly reduced function. No arrhythmias seen on ICD interrogation. Will sign-off. Please call with any questions. He will follow up with cardiology in 2-3 weeks. 07/08/18 15:26 07/08/18 15:26 Subjective: Complaining of a cough which is improving. His SOB and edema are back to baseline. Reviewed/Discussed With: hospitalist Objective: Vital Signs (8 Hrs) Temp Pulse Resp BP Pulse Ox 07/08/18 11:55 36.7 C 72 10 L 132/75 H 91 L 07/08/18 11:46 36.7 C 73 12 132/75 H 92 07/08/18 08:23 163/90 H 07/08/18 07:20 36.4 C 73 12 163/90 H 92 Intake/Output (24 Hrs) 07/07/18 07/08/18 07/09/18 05:59 05:59 05:59 Intake Total 2190 1180 Output Total 1925 1225 Balance 265 -45 Intake: Oral (ml) 2190 1180 Output: Urine (ml) 1925 1225 Toilet 1075 Urinal 1925 150 Other: Weight 69.4 kg Intake Quantity Yes Sufficient Number of Voids Urinal 2 Number of Stools Toilet 1 1 Urinal 1 Result Diagrams: 07/08/18 03:32 07/08/18 03:32 Cardiac Labs: Cardiac Lab Results (72 Hrs) 07/05/18 16:50 Troponin I 0.192 H Telemetry: Paced. - Physical Exam Constitutional: no apparent distress Cardiovascular: regular rate and rhythm Peripheral Pulses: 2+: dorsalis-pedis (R), dorsalis-pedis (L) Respiratory: inspiratory crackles (right lung base) Skin: no edema Neurologic: AAOx3 ICD10 Worksheet Patient Problems: Problems Problem Status Onset Acute coronary syndrome Acute Chest pain Acute Elevated troponin Acute Pneumonia Acute Acute blood loss anemia Acute Acute renal failure Acute Mitral valve regurgitation Acute S/P CABG x 5 Acute ~12/29/16 CAD, multiple vessel Chronic Ischemic cardiomyopathy Chronic
--- NOTE | 2018-07-08 15:47 | ASMTCMCOM ---
CM Note CM Note Notes: 07/08/2018 Case Management Note Discussed pt during rounds this morning. Pt will need weekly INR draws at discharge. Scheduled appointment at [facility] with Dianne CASTILLO for WedJul 13 at 2:45 pm in the blue pod. Pt to bring $20 co pay. Pt primary is Dr. No Vance at [facility]. Case Management d/c poc: [facility] follow up appointment. Case Management to follow. Date Signed: 07/08/2018 03:46 PM Electronically Signed By:Chelle Gordon RN
[2018-07-08] MEDS ORDERED: WARFARIN SODIUM 5 MG TAB PO ONE (16:00)
[2018-07-08] MEDS: CARVEDILOL 6.25 MG TAB PO SCH (16:59)
[2018-07-08] MEDS: SODIUM CL NASAL 45 ML BTL EACHNARE PRN (18:46)
[2018-07-09 05:13] LABS: INR 1.94 (0.83-1.16); PROTIME(PATIENT) 22.2 SEC (12.0-15.0)
[2018-07-09] MEDS: CARVEDILOL 6.25 MG TAB PO SCH ×2 (09:09→20:59)
[2018-07-09] MEDS: ATORVASTATIN CALCIUM 40 MG TAB PO SCH (09:09)
[2018-07-09] MEDS: FUROSEMIDE 40 MG TAB PO SCH (09:09)
[2018-07-09] MEDS: SENNOSIDES/DOCUSATE SODIUM TAB PO SCH ×2 (09:10→21:15)
[2018-07-09] MEDS: PANTOPRAZOLE SODIUM 40 MG TAB PO SCH (09:10)
[2018-07-09] MEDS: LISINOPRIL 20 MG TAB PO SCH (09:10)
--- NOTE | 2018-07-09 09:13 | HOSPPROG ---
Hospitalist Progress Note Assessment/Plan: #Melena: new since AC started. Dark stool last night. Drop in H/H. BP stable -IV PPI. Hold AC and ASA. Serial H/H -discussed case with Dr. Lewis, plan for EGD later today # Acute on chronic biventricular systolic CHF: LVEF 23%, similar to prior - back on PO Lasix. Continue lisinopril, coreg - Cardiology following #Elevated troponin: Down-trending. Demand in setting of above. #Extensive LUE/IJ DVT: holding AC. GI consulted for scope # Recent syncopal episode: Occurred while hospitalized in [place]. Pacemaker interrogated. #. Cough: Suspect r/t pulmonary edema. RVP and procalcitonin negative. #CAD: S/p 5v CABG in 2017. Statin started here. Holding ASA #. Diabetes: metformin, added SSI # H/o atrial fibrillation: Post-operative. None on last ICD check. Now anticoagulated. Had KACIE closure. E. H/o LLE DVT: 01/2017. Reportedly non-compliant with anticoagulation at that time. Interview/exam done with in-person Digital Learning Platforms Manager Subjective: black stool last night. No dizziness or chest pain Objective: Vital Signs Temp Pulse Resp BP Pulse Ox 36.9 C 79 14 139/66 H 94 07/09/18 07:10 07/09/18 07:10 07/09/18 07:10 07/09/18 07:10 07/09/18 07:10 Laboratory Results 07/09/18 04:14 07/09/18 04:14 07/08/18 07/09/18 07/10/18 05:59 05:59 05:59 Intake Total 1180 1050 Output Total 1225 650 Balance -45 400 PT 22.2 SEC (12.0-15.0) H 07/09/18 04:14 INR 1.94 (0.83-1.16) H 07/09/18 04:14 - Time Spent With Patient Time Spent with Patient: greater than 35 minutes Time Spent with Patient: Greater than 35 minutes spent on this patients care, greater than 50% of time spent counseling, educating, and coordinating care regarding the above mentioned plan. - Physical Exam Constitutional: no apparent distress Eyes: PERRL Ears, Nose, Mouth, Throat: moist mucous membranes, other (hematoma on lower left lip) Cardiovascular: regular rate and rhythym Respiratory: no respiratory distress Gastrointestinal: normoactive bowel sounds Genitourinary: no bladder fullness Skin: warm Musculoskeletal: full muscle strength Neurologic: AAOx3, CN II-XII Intact Psychiatric: interacting appropriately ICD10 Worksheet Patient Problems: Problems Problem Status Onset Acute coronary syndrome Acute Chest pain Acute Elevated troponin Acute Pneumonia Acute Acute blood loss anemia Acute Acute renal failure Acute Mitral valve regurgitation Acute S/P CABG x 5 Acute ~12/29/16 CAD, multiple vessel Chronic Ischemic cardiomyopathy Chronic
[2018-07-09] MEDS: metFORMIN HCL 500 MG TAB PO SCH (09:25)
[2018-07-09] MEDS: INSULIN LISPRO 100 UNIT/ML SC SCH ×3 (09:25→17:45)
[2018-07-09] MEDS: ASPIRIN 81 MG CHEWABLE TAB PO SCH (09:44)
[2018-07-09] MEDS: ENOXAPARIN 80 MG/0.8 ML SYR SC SCH (09:44)
[2018-07-09] MEDS: PANTOPRAZOLE SODIUM 40 MG VIAL IVP SCH ×2 (10:18→20:59)
--- NOTE | 2018-07-09 12:37 | SOAPPROG ---
SOAP Progress Note Assessment/Plan: Assessment:Plan: full dictated consult to follow 78 y/o male with CAD, PPM, EF=25% DVT upper extremity on anticoagulation with melena and decreased HB c/w UGI source are at 10:30 EGD not sooner then 8 hours post PO intake with anesthesia Giles Lewis MD 07/09/18 12:35 Objective: Vital Signs Temp Pulse Resp BP Pulse Ox 36.6 C 79 13 146/77 H 95 07/09/18 11:24 07/09/18 11:24 07/09/18 11:24 07/09/18 11:24 07/09/18 11:24 Laboratory Results 07/09/18 04:14 07/09/18 04:14 07/08/18 07/09/18 07/10/18 05:59 05:59 05:59 Intake Total 1180 1050 Output Total 1225 650 Balance -45 400 PT 22.2 SEC (12.0-15.0) H 07/09/18 04:14 INR 1.94 (0.83-1.16) H 07/09/18 04:14 ICD10 Worksheet Patient Problems: Problems Problem Status Onset Acute coronary syndrome Acute Chest pain Acute Elevated troponin Acute Pneumonia Acute Acute blood loss anemia Acute Acute renal failure Acute Mitral valve regurgitation Acute S/P CABG x 5 Acute ~12/29/16 CAD, multiple vessel Chronic Ischemic cardiomyopathy Chronic
--- NOTE | 2018-07-09 17:42 | GCON ---
[f rep st] CONSULTATION DATE OF CONSULTATION: 07/09/2018 REFERRING PHYSICIAN: Syeda Houston MD INDICATION FOR CONSULTATION: Melena in a patient on anticoagulation. HISTORY OF PRESENT ILLNESS: Obtained via security infrastructure engineer. Patient is a pleasant 78-year-old male with a history of coronary artery disease with bypass years ago with a poor ejection fraction of 25%, who presented to the hospital after being in [place] in the hospital for 8 days and then driving to [place] to be with his family. He had been admitted with what they thought was a pneumonia and he received a significant amount of IV fluid during that hospitalization. He continued to have some chest pain, shortness of breath, and coughing when he came to [place] and he presented to the emergency room for evaluation. In the emergency department, he had bibasilar infiltrates and elevated BNP, minimally elevated troponin, and a nonischemic EKG. He was admitted for further evaluation and a sonogram of his swollen left upper arm revealed a DVT and he was started on heparin. This morning, he was noted to have an episode of melena with decreased hemoglobin and hematocrit, and elevated BUN and creatinine that is consistent with upper GI bleed. I was called to help and evaluate. Unfortunately, he did have breakfast and had his last bite of food at approximately 10:30 this morning, so he cannot undergo endoscopy until approximately 6:30 at night. He did not complain of any dysphagia, odynophagia , or early satiety. He says appetite is good. He has no hematemesis. He did not take any significant amount of ibuprofen or other nonsteroidal anti- inflammatory drugs. His heparin has been held and I have been contacted to evaluate for his presumed upper GI bleed. PAST MEDICAL HISTORY: 1. Coronary artery disease status post CABG, ejection fraction 25%. Has permanent pacemaker placed. 2. History of atrial fibrillation postoperative. 3. He has a history of right upper extremity DVT back in 2017 and a current left upper extremity DVT. 4. He has a history of diabetes. SURGICAL HISTORY: Includes 1. 5-vessel CABG in 2017. 2. A biventricular ICD placement. 3. Left atrial appendage closure. 4. He has never had a colonoscopy or endoscopy. SOCIAL HISTORY: He says that he quit smoking and drinking 2 years ago. He said he smoked and drank a lot. He does not quantify it. FAMILY HISTORY: No colon cancer, colon polyps. No GI malignancies to his knowledge. ALLERGIES: Erythromycin. MEDICATIONS: At home include: Coreg, lisinopril, metformin, and furosemide. In hospital: He is written for Tylenol p.r.n., Lipitor 40 mg daily, Coreg 6.25 mg twice daily, Lasix 40 mg daily, insulin sliding scale, Zestril 20 mg daily, Milk of Magnesia p.r.n., metformin 500 mg daily, morphine sulfate p.r.n., Zofran p.r.n., oxycodone p.r.n., Protonix 40 mg IV twice daily, MiraLAX p.r.n., senna 1 to 2 tabs p.o. twice daily. Anticoagulation has been held. Aspirin has been held. REVIEW OF SYSTEMS: A complete review of systems was performed and negative other than noted in the HPI. PHYSICAL EXAM: GENERAL: Well-developed male sitting in his bed. No acute distress. He does have a significant laceration on his lip from a fall approximately 8-10 days ago, when he was in [place]. VITAL SIGNS: Blood pressure is 146/77, pulse is 79, respirations are 13, he is 95% on room air. Temperature 36.6. EYES: Anicteric. PERRL, EOMI. Mouth: No lesions. Moist membranes. NECK: Supple. Full range of motion. No JVD. BACK: No spine tenderness. No CVA tenderness. CARDIAC: S1, S2. Regular rate and rhythm. I do not appreciate any murmurs, rubs, or gallops. ABDOMEN: Bowel sounds are normal in pitch and frequency. Soft and nontender. No hepatosplenomegaly. EXTREMITIES: No cyanosis, clubbing. NEUROLOGIC: Cranial nerves intact. Nonfocal. SKIN: No stigmata of advanced liver disease. LABORATORY DATA: From this morning, WBC 5.60, hemoglobin 12.4, hematocrit 37.0 , platelet count 166. On admission, his hemoglobin was 14.7, decreased to 13.4 with hydration. Subsequent hemoglobin this morning at 4 in the morning was 11.3. From this morning, sodium 132, potassium 4.0, chloride 104, bicarb 26, BUN 27, creatinine 0.9, glucose 117. His BUN on July 06 was 21, creatinine 0.9. Pro time on admission , 15.5, an INR 1.21, PTT 29.6. Currently, his pro time is 22.2 and INR 1.94. Chest x-ray performed July 05, 2018, revealed bilateral infiltrates consistent with pneumonia. Sonogram on the showed diffuse acute deep venous thrombosis involving the entire left arm and left internal jugular vein. ASSESSMENT: 1. Episode of melena consistent with upper gastrointestinal bleed with mildly elevated BUN/creatinine ratio, decreased hemoglobin and hematocrit. 2. Coronary artery disease status post coronary artery bypass graft. 3. Status post permanent pacemaker with ejection fraction 25%. 4. Deep venous thrombosis noted in the left upper extremity, started on heparin and Coumadin which have been both held. 5. Hypertension. 6. Abnormal x-ray. 7. History of pneumonia treated 2 weeks ago. Afebrile with normal white count. No antibiotics had been started. RECOMMENDATIONS: 1. EGD for evaluation of melena, elevated BUN and creatinine, presumed upper GI blood source in a patient with a large DVT and who needs anticoagulation. 2. DVT, anticoagulation on hold pending results of EGD. 3. Coronary artery disease. 4. As per Hospitalist and Cardiology. 5. Congestive heart failure as per Cardiology. 6. Abnormal x-ray. Pneumonia treated 2 weeks ago. Currently without fever and normal white cell count. Not on antibiotics. The patient ate breakfast this morning had last bit of food at 10:30. Therefore , the EGD cannot be performed before 6:30 this evening. Patient will need anesthesia given his multiple medical issues, including but not limited to his CHF, his DVT, and his hypertension. This will be a higher risk procedure than normal and Anesthesia will be asked to perform the anesthesia for safe completion of the EGD. Thank you for allowing me to participate in this patient's healthcare. Do not hesitate to call me with any questions. Sincerely, /[phone]/MODL MTDD
[2018-07-09] MEDS ORDERED: LR 1,000 ML IV ONE (18:29)
--- NOTE | 2018-07-09 18:31 | PDANEPAE ---
ANE History of Present Illness EGD for GI bleed ANE Past Medical History - Cardiovascular History Hx Hypertension: Yes Hx Arrhythmias: Yes Hx Chest Pain: Yes Hx Coronary Artery / Peripheral Vascular Disease: Yes Hx CHF / Valvular Disease: Yes Cardiovascular History Comment: BiV ICD-magnet is ICD off - Pulmonary History Hx COPD: Yes Hx Oxygen in Use at Home: No Hx Sleep Apnea: No Sleep Apnea Screening Result - Last Documented: Positive - Endocrine History Hx Diabetes: Yes - Renal History Hx Renal Disorders: No - Liver History Hx Hepatic Disorders: No - Chronic Pain History Chronic Pain: No - Surgical History Prior Surgeries: no prior surgery ANE Review of Systems Review of Systems: - Exercise capacity METS (RN): 3 METS - Pacemaker 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 [employer]Tri[employer] Pacemaker Model: [place] Pacemaker Mode: DDD Date Pacemaker Last Checked: today ANE Patient History - Allergies Allergies/Adverse Reactions: erythromycin base [From E-Mycin] Allergy (Unknown, Verified 07/05/18 10:51) Itching - Home Medications Home medications: home medication list seen and reviewed Home Medications: Carvedilol [Coreg (*)] 3.125 mg PO BID 01/04/18 [Last Taken 07/04/18 21:00] Lisinopril [Zestril 20 mg (*)] 20 mg PO DAILY 01/04/18 [Last Taken 07/04/18] metFORMIN HCL [Glucophage 500 mg (*)] 500 mg PO DAILY 01/05/18 [Last Taken 07/04] Furosemide [Lasix 40 MG (*)] 40 mg PO DAILY 07/05/18 [Last Taken 07/04/18] - NPO status NPO Status: no food or drink >8 hours NPO Since - Liquids (Date): 07/09/18 NPO Since - Liquids (Time): 10:30 NPO Since - Solids (Date): 07/09/18 NPO Since - Solids (Time): 10:30 - Anes Hx Anes Hx: no prior problems - Smoking Hx Smoking Status: Former smoker - Alcohol Use Alcohol Use: Sober ANE Labs/Vital Signs - Labs Result Diagrams: 07/09/18 13:01 07/09/18 04:14 - Labs - BMP Glucose: 117 at 1738 - Vital Signs Blood Pressure: 116/60 Heart Rate: 86 Respiratory Rate: 16 O2 Sat (%): 92 Height: 162.56 cm Weight: 68.7 kg ANE Physical Exam - Airway Neck exam: decreased ROM Mallampati Score: Class 2 Mouth exam: poor dentition - Pulmonary Pulmonary: no respiratory distress - Cardiovascular Cardiovascular: regular rate and rhythym - ASA Status ASA Status: III ANE Anesthesia Plan Anesthesia Plan: GA with mask
[2018-07-09] MEDS ORDERED: PROPOFOL 200 MG/20 ML VIAL ONE ×3 (18:37→19:11)
[2018-07-09] MEDS ORDERED: LIDOCAINE 2% 100 MG/5 ML SYR ONE (18:39)
[2018-07-09] MEDS ORDERED: EPINEPHrine 1 MG/10 ML SYR IVP ONE ×2 (18:46→19:00)
[2018-07-09] MEDS ORDERED: ePHEDrine SULFATE 25 MG/5 ML SYR ONE (18:59)
[2018-07-09] MEDS ORDERED: oxyCODONE IR 5 MG TAB PO PRN (19:25)
[2018-07-09] MEDS ORDERED: ALBUTEROL 3 ML DEYVIAL IH PRN (19:25)
[2018-07-09] MEDS ORDERED: ONDANSETRON 4 MG/2 ML VIAL IVP PRN (19:25)
[2018-07-09] MEDS ORDERED: LR 500 ML IV PRN (19:25)
[2018-07-09] MEDS ORDERED: fentaNYL 100 MCG/2 ML INJ IVP PRN (19:25)
[2018-07-09] MEDS ORDERED: NALOXONE HCL 0.4 MG/ML INJ IVP PRN (19:25)
[2018-07-09] MEDS ORDERED: PHENYLEPHRINE HCL 100 MCG/ML SYR IVP PRN (19:25)
--- NOTE | 2018-07-09 19:30 | GIREPORT ---
[facility] Surgical Services - Endoscopy Department Patient Name: Luis M Khalil Procedure Date: 07/09/2018 6:39 PM Patient Type: Inpatient Attending MD/ ER Physician: Giles Lewis MD Procedure: Upper GI endoscopy Indications: Melena Providers: Giles Lewis MD Medicines: Propofol per Anesthesia = IV general with spontaneous respirations Complications: No immediate complications. Description of Procedure: After obtaining informed consent, the endoscope was passed under direct vision. Throughout the procedure, the patient's blood pressure, pulse, and oxygen saturations were monitored continuously. The Endoscope was intro duced through the mouth, and advanced to the second part of duodenum. The [facility] er GI endoscopy was accomplished without difficulty. The patient tolerated th e procedure well. Findings: The examined esophagus was normal. The entire examined stomach was normal. Clotted blood was found in the duodenal bulb (large clot). Area was successfully injected with 4 mL of a 1:10,000 solution of epinephrine f or hemostasis. Estimated blood loss was minimal. The clot was removed with a cold snare and a Rhodes net so I could see the area better. Clot resectio n was complete, and the resected clot was not retrieved. One non-bleeding protruding duodenal ulcer with a visible vessel was fo und in the duodenal bulb. For hemostasis, four hemostatic clips were succes sful and two hemostatic clips were unsuccessfully placed. There was no bleed ing during, or at the end, of the procedure. Estimated Blood Loss: Estimated blood loss was minimal. Post Op Diagnosis: - Normal esophagus. - Normal stomach. - Blood in the duodenal bulb. Injected. - Clot removed with snare and Rhodes net to better visualize bleeding sit e for hemostasis - One non-bleeding duodenal ulcer with a visible vessel. Clips x 4 were placed. Recommendation: - Return patient to [facility] for ongoing care. - Clear liquid diet. - Use Protonix (pantoprazole) 40 mg PO BID. Can be IV as well - I would be holding is anticoagulation for at least 24 hours to make s ure this doesn't rebleed. - Repeat upper endoscopy PRN for retreatment. Can argue to relook in 1- 2 days to reassess bleeding risk going forward. - Thank you for allowing me to help in your patient's care. Do not hesi sanchez to call with any questions. Attending Participation: I personally performed the entire procedure. Joshua Meehan M.D Giles Lewis MD 07/09/2018 7:29:40 PM This report has been signed electronicallyMatthew MD Joshua Number of Addenda: 0 Note Initiated On: 07/09/2018 6:39 PM [email or web address]
[2018-07-09] MEDS ORDERED: fentaNYL 100 MCG/2 ML INJ ONE (19:44)
[2018-07-10 05:08] LABS: INR 1.94 (0.83-1.16); PROTIME(PATIENT) 22.2 SEC (12.0-15.0)
--- NOTE | 2018-07-10 06:42 | POSTANESTH ---
Post Anesthetic Evaluation Cardiovascular Status: Normal, Stable, Similar to Pre-Op Cond Respiratory Status: Similar to Pre-op Cond., Tx Decrease in SpO2 Level of Consciousness/Mental Status: Can Participate in Eval Pain Control: Adequate, Prn Tx Ordered Nausea/Vomiting Control: Adequate, Prn Tx Ordered Complications Possibly Related to Anesthesia: None Noted
[2018-07-10] MEDS: INSULIN LISPRO 100 UNIT/ML SC SCH ×3 (08:33→17:01)
[2018-07-10] MEDS: FUROSEMIDE 40 MG TAB PO SCH (08:40)
[2018-07-10] MEDS: ATORVASTATIN CALCIUM 40 MG TAB PO SCH (08:40)
[2018-07-10] MEDS: metFORMIN HCL 500 MG TAB PO SCH (08:40)
[2018-07-10] MEDS: LISINOPRIL 20 MG TAB PO SCH (08:40)
[2018-07-10] MEDS: PANTOPRAZOLE SODIUM 40 MG VIAL IVP SCH (08:41)
[2018-07-10] MEDS: CARVEDILOL 6.25 MG TAB PO SCH ×2 (08:41→17:48)
[2018-07-10] MEDS: SENNOSIDES/DOCUSATE SODIUM TAB PO SCH ×2 (08:53→20:40)
--- NOTE | 2018-07-10 09:43 | HOSPPROG ---
Hospitalist Progress Note Assessment/Plan: #Duodenal ulcer: s/p 4 clips -hold AC until tomorrow to ensure doesn't bleed. Will start heparin gtt, so can be stopped quickly if rebleeds -H/H stable, PPI #ABLA: due to above. Stable # Acute on chronic biventricular systolic CHF: LVEF 23%, similar to prior -Lasix, Coreg, Lisinopril #Elevated troponin: Down-trending. Demand in setting of above. #Extensive LUE/IJ DVT: restart heparin gtt Wednesday, monitor H/H #Recent syncopal episode: Occurred while hospitalized in [place]. Pacemaker interrogated. #Cough: Suspect r/t pulmonary edema. RVP and procalcitonin negative. #CAD: S/p 5v CABG in 2017. Statin started here. Holding ASA #. Diabetes: metformin, added SSI # H/o atrial fibrillation: Post-operative. None on last ICD check. Now anticoagulated. Had KACIE closure. E. H/o LLE DVT: 01/2017. Reportedly non-compliant with anticoagulation at that time. Interview/exam done with in-person Evp Chief Exploration Officer. Son bedside and questions answered. Subjective: no abdominal pain Objective: Vital Signs Temp Pulse Resp BP Pulse Ox 36.9 C 76 16 154/69 H 97 07/10/18 07:37 07/10/18 07:37 07/10/18 07:37 07/10/18 07:37 07/10/18 07:37 Laboratory Results 07/10/18 03:32 07/09/18 04:14 07/09/18 07/10/18 07/11/18 05:59 05:59 05:59 Intake Total 1050 1200 Output Total 650 1300 350 Balance 400 -100 -350 PT 22.2 SEC (12.0-15.0) H 07/10/18 03:32 INR 1.94 (0.83-1.16) H 07/10/18 03:32 - Time Spent With Patient Time Spent with Patient: greater than 35 minutes Time Spent with Patient: Greater than 35 minutes spent on this patients care, greater than 50% of time spent counseling, educating, and coordinating care regarding the above mentioned plan. - Physical Exam Constitutional: no apparent distress Eyes: PERRL Ears, Nose, Mouth, Throat: poor dentition, other (lip hematoma) Cardiovascular: regular rate and rhythym, No edema Respiratory: no respiratory distress Gastrointestinal: normoactive bowel sounds, soft, non-tender abdomen Genitourinary: no bladder fullness, no bladder tenderness Musculoskeletal: full muscle strength Neurologic: AAOx3, CN II-XII Intact ICD10 Worksheet Patient Problems: Problems Problem Status Onset Acute coronary syndrome Acute Chest pain Acute Elevated troponin Acute Pneumonia Acute Acute blood loss anemia Acute Acute renal failure Acute Mitral valve regurgitation Acute S/P CABG x 5 Acute ~12/29/16 CAD, multiple vessel Chronic Ischemic cardiomyopathy Chronic
--- NOTE | 2018-07-10 12:54 | SOAPPROG ---
[facility] Progress Note Assessment/Plan: Assessment:Plan: 1) duodenal 'ulcer' - protruding lesion with visible vessel s/p clips - PPI BID. After thinking overnight I do wnat to repaet EGD tomorrow to relook at that site to see what the bleeding risk is in the near term. NPO in am. 2) Anemia - Hb dropped but maybe not c/w rebleed - recheck now with Comp panel to look at BUN/cr ratio and lfts 3) DVT - anticoagulation on hold for now, unclear etiology ?query clotting disorder? query related to malignancy that is not yet identified? 4) Diet - if HB stable and BUN/cr decreased then advance diet and NPO in am for EGD late morning or early afternoon tomorrow 5) anticoagulation - on hold but INR still 1.94 07/10/18 12:56 Subjective: CC- UI bleed, DVT, pt feels fine no abdo pain, no n/v still with melena but decreasing frequency he wants to eat solid food Objective: Vital Signs Temp Pulse Resp BP Pulse Ox 36.7 C 82 17 154/69 H 90 L 07/10/18 11:44 07/10/18 11:44 07/10/18 11:44 07/10/18 11:44 07/10/18 11:44 Laboratory Results 07/10/18 03:32 07/09/18 04:14 07/09/18 07/10/18 07/11/18 05:59 05:59 05:59 Intake Total 1050 1200 Output Total 650 1300 350 Balance 400 -100 -350 PT 22.2 SEC (12.0-15.0) H 07/10/18 03:32 INR 1.94 (0.83-1.16) H 07/10/18 03:32 Alert and oriented - relative translating for me CTA S1S2 +BS, soft nt Laboratory Tests 07/07/18 07/08/18 07/09/18 12:15 03:32 04:14 Hgb 12.5 L 12.4 L Hct 37.8 L 37.0 L PT 22.2 H INR 1.94 H BUN Creatinine 07/09/18 07/09/18 07/09/18 04:14 04:14 13:01 Hgb 11.3 L 11.6 L Hct 34.5 L 34.7 L PT INR BUN 27 H Creatinine 0.9 07/09/18 07/10/18 07/10/18 20:34 03:32 03:32 Hgb 10.7 L 10.2 L Hct 32.5 L 30.6 L PT 22.2 H INR 1.94 H BUN Creatinine ICD10 Worksheet Patient Problems: Problems Problem Status Onset Acute coronary syndrome Acute Chest pain Acute Elevated troponin Acute Pneumonia Acute Acute blood loss anemia Acute Acute renal failure Acute Mitral valve regurgitation Acute S/P CABG x 5 Acute ~12/29/16 CAD, multiple vessel Chronic Ischemic cardiomyopathy Chronic
[2018-07-10] MEDS: PANTOPRAZOLE SODIUM 40 MG TAB PO SCH (20:38)
[2018-07-11 04:31] LABS: INR 1.9 (0.83-1.16); PROTIME(PATIENT) 21.9 SEC (12.0-15.0)
[2018-07-11] MEDS: INSULIN LISPRO 100 UNIT/ML SC SCH ×3 (09:20→18:41)
[2018-07-11] MEDS: PANTOPRAZOLE SODIUM 40 MG TAB PO SCH ×2 (09:52→21:40)
[2018-07-11] MEDS: FUROSEMIDE 40 MG TAB PO SCH (09:52)
[2018-07-11] MEDS: SENNOSIDES/DOCUSATE SODIUM TAB PO SCH ×2 (09:52→21:40)
[2018-07-11] MEDS: CARVEDILOL 6.25 MG TAB PO SCH ×2 (09:52→18:41)
[2018-07-11] MEDS: metFORMIN HCL 500 MG TAB PO SCH (09:52)
[2018-07-11] MEDS: LISINOPRIL 20 MG TAB PO SCH (09:53)
[2018-07-11] MEDS: ATORVASTATIN CALCIUM 40 MG TAB PO SCH (09:53)
--- NOTE | 2018-07-11 11:51 | ASMTCMCOM ---
CM Note CM Note Notes: Patient to have EGD this afternoon. Case Management will follow: he has an important f/u appointment at [facility], 07/13 @ 7138 - we will change this if he is still inpatient at that time. Date Signed: 07/11/2018 11:47 AM Electronically Signed By:Veronica Rai RN
--- NOTE | 2018-07-11 12:49 | HOSPPROG ---
Hospitalist Progress Note Assessment/Plan: #Duodenal ulcer: s/p 4 clips -hold to ensure doesn't bleed. Repeat EGD. If stable, will start heparin gtt, so can be stopped quickly if rebleeds -H/H stable, PPI #ABLA: due to above. 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 Demand in setting of above. #Extensive LUE/IJ DVT: restart heparin gtt Wednesday, monitor H/H #Recent syncopal episode: pacemaker interrogated. #Cough: Suspect r/t pulmonary edema. RVP and procalcitonin negative. #CAD: S/p 5v CABG in 2017. Statin started here. Holding ASA #Diabetes: metformin, added SSI H/o atrial fibrillation: Post-operative. None on last ICD check. Now anticoagulated. Had KACIE closure. E. H/o LLE DVT: 01/2017. Reportedly non-compliant with anticoagulation at that time. Interview/exam done with in-person Meat Stringer. Son bedside and questions answered. Subjective: no stools overnight Objective: Vital Signs Temp Pulse Resp BP Pulse Ox 36.9 C 92 14 153/92 H 96 07/11/18 11:34 07/11/18 11:34 07/11/18 11:34 07/11/18 11:34 07/11/18 11:34 Microbiology 07/05/18 13:30 Blood Culture - Final Blood 07/05/18 13:50 Blood Culture - Final Blood Laboratory Results 07/11/18 03:26 07/10/18 13:35 07/10/18 07/11/18 07/12/18 05:59 05:59 05:59 Intake Total 1200 1600 Output Total 1300 1925 350 Balance -100 -325 -350 PT 21.9 SEC (12.0-15.0) H 07/11/18 03:26 INR 1.90 (0.83-1.16) H 07/11/18 03:26 - Time Spent With Patient Time Spent with Patient: greater than 35 minutes Time Spent with Patient: Greater than 35 minutes spent on this patients care, greater than 50% of time spent counseling, educating, and coordinating care regarding the above mentioned plan. - Physical Exam Constitutional: no apparent distress Eyes: PERRL Ears, Nose, Mouth, Throat: moist mucous membranes, other (lip hematoma) Cardiovascular: regular rate and rhythym, No edema Respiratory: no respiratory distress Gastrointestinal: normoactive bowel sounds, No tenderness Skin: warm Musculoskeletal: full muscle strength Neurologic: AAOx3, CN II-XII Intact ICD10 Worksheet Patient Problems: Problems Problem Status Onset Acute coronary syndrome Acute Chest pain Acute Elevated troponin Acute Pneumonia Acute Acute blood loss anemia Acute Acute renal failure Acute Mitral valve regurgitation Acute S/P CABG x 5 Acute ~12/29/16 CAD, multiple vessel Chronic Ischemic cardiomyopathy Chronic
[2018-07-11] MEDS ORDERED: LR 1,000 ML IV ONE (13:57)
[2018-07-11] MEDS ORDERED: LIDOCAINE 2% 5 ML SDV ONE (14:43)
[2018-07-11] MEDS ORDERED: PROPOFOL 200 MG/20 ML VIAL ONE (14:43)
--- NOTE | 2018-07-11 15:10 | GIREPORT ---
[facility] Surgical Services - Endoscopy Department Patient Name: Luis M Khalil Procedure Date: 07/11/2018 2:36 PM Patient Type: Inpatient Attending MD/ ER Physician: Giles Lewis MD Procedure: Upper GI endoscopy Indications: Follow-up of acute duodenal ulcer with hemorrhage Providers: Giles Lewis MD Medicines: Propofol per Anesthesia Complications: No immediate complications. Estimated blood loss: Minimal. Description of Procedure: After obtaining informed consent, the endoscope was passed under direct vision. Throughout the procedure, the patient's blood pressure, pulse, and oxygen saturations were monitored continuously. The Endoscope was intro duced through the mouth, and advanced to the second part of duodenum. The [facility] er GI endoscopy was accomplished without difficulty. The patient tolerated th e procedure well. Findings: The examined esophagus was normal. Scattered moderate inflammation characterized by congestion (edema), erosions, erythema, friability and granularity was found in the gastric body, at the incisura and in the gastric antrum. Biopsies were taken wi th a cold forceps for histology. Estimated blood loss was minimal. One non-bleeding superficial duodenal ulcer with clip on from previous EGD was found in the duodenal bulb. For hemostasis, two hemostatic clips we re successful and one hemostatic clip was unsuccessfully placed (MR conditional). There was no bleeding during, or at the end, of the proce dure. One non-bleeding duodenal ulcer with no stigmata of bleeding was found in the duodenal bulb. The second portion of the duodenum was normal. The exam was otherwise without abnormality. Estimated Blood Loss: Estimated blood loss was minimal. Post Op Diagnosis: - Normal esophagus. - Gastritis. Biopsied. Moderate with multiple erosions in antrum and chinedu dy. - One non-bleeding duodenal ulcer with clip on from previous EGD. One m ore Clip (MR conditional) was placed. The other three clips that were there on Wednesday have fallen off. - One non-bleeding duodenal ulcer with no stigmata of bleeding. This wa s not seen on previous EGD as too much blood and clots in area. - Normal second portion of the duodenum. - The examination was otherwise normal. Recommendation: - Await pathology results. If no h pylori, check h pylori ab and treat if positive. - My office will call with the pathology result with 5-7 days. If you h ave not heard from my office by 05-20, do not assume the pathology is carol l, please call [phone] to get the pathology results. - Use Protonix (pantoprazole) 40 mg PO BID for 1 month. Then daily - probably termination clerk to prevent recurrent UGI bleed on anticoagulation - Return patient to hospital [facility] for ongoing care. - Resume regular diet. - Resume heparin at prior dose today. Refer to managing physician for further adjustment of therapy. - Thank you for allowing me to help in your patient's care. Do not hesi sanchez to call with any questions. Attending Participation: I personally performed the entire procedure. Joshua Meehan M.D Giles Lewis MD 07/11/2018 3:10:11 PM This report has been signed [email or web address] MD Joshua Number of Addenda: 0 Note Initiated On: 07/11/2018 2:36 PM [email or web address]
[2018-07-11] MEDS ORDERED: PHENYLEPHRINE HCL 100 MCG/ML SYR IVP PRN (15:12)
[2018-07-11] MEDS ORDERED: NALOXONE HCL 0.4 MG/ML INJ IVP PRN (15:12)
[2018-07-11] MEDS ORDERED: fentaNYL 100 MCG/2 ML INJ IVP PRN (15:12)
[2018-07-11] MEDS ORDERED: ONDANSETRON 4 MG/2 ML VIAL IVP PRN (15:12)
--- NOTE | 2018-07-11 15:12 | POSTANESTH ---
Post Anesthetic Evaluation Cardiovascular Status: Similar to Pre-Op Cond Respiratory Status: Normal, Stable Level of Consciousness/Mental Status: Mildly Sleepy, Arousable Pain Control: Adequate, Prn Tx Ordered Nausea/Vomiting Control: Adequate, Prn Tx Ordered Complications Possibly Related to Anesthesia: None Noted
--- NOTE | 2018-07-11 15:12 | PDANEPAE ---
ANE Past Medical History - Cardiovascular History Hx Hypertension: Yes Hx Arrhythmias: Yes Hx Chest Pain: Yes Hx Coronary Artery / Peripheral Vascular Disease: Yes Hx CHF / Valvular Disease: Yes Cardiovascular History Comment: BiV ICD-magnet is ICD off - Pulmonary History Hx COPD: Yes Hx Oxygen in Use at Home: No Hx Sleep Apnea: No Sleep Apnea Screening Result - Last Documented: Positive - Endocrine History Hx Diabetes: Yes - Renal History Hx Renal Disorders: No - Liver History Hx Hepatic Disorders: No - Chronic Pain History Chronic Pain: No - Surgical History Prior Surgeries: no prior surgery ANE Review of Systems Review of Systems: - Exercise capacity METS (RN): 3 METS - Pacemaker Pacemaker Emt Basic: e[employer]ek[employer]roni[employer] Pacemaker Model: [place] Pacemaker Mode: DDD Date Pacemaker Last Checked: today ANE Patient History - Allergies Allergies/Adverse Reactions: erythromycin base [From E-Mycin] Allergy (Unknown, Verified 07/05/18 10:51) Itching - Home Medications Home Medications: Carvedilol [Coreg (*)] 3.125 mg PO BID 01/04/18 [Last Taken 07/04/18 21:00] Lisinopril [Zestril 20 mg (*)] 20 mg PO DAILY 01/04/18 [Last Taken 07/04/18] metFORMIN HCL [Glucophage 500 mg (*)] 500 mg PO DAILY 01/05/18 [Last Taken 07/04] Furosemide [Lasix 40 MG (*)] 40 mg PO DAILY 07/05/18 [Last Taken 07/04/18] - NPO status NPO Since - Liquids (Date): 07/11/18 NPO Since - Liquids (Time): 00:01 NPO Since - Solids (Date): 07/11/18 NPO Since - Solids (Time): 00:01 - Smoking Hx Smoking Status: Former smoker - Alcohol Use Alcohol Use: Sober ANE Labs/Vital Signs - Labs Result Diagrams: 07/11/18 03:26 07/10/18 13:35 - Vital Signs Blood Pressure: 145/90 Heart Rate: 86 Respiratory Rate: 16 O2 Sat (%): 95 Height: 162.56 cm Weight: 66.2 kg ANE Physical Exam - Airway Neck exam: decreased ROM Mallampati Score: Class 2 Mouth exam: poor dentition - Pulmonary Pulmonary: no respiratory distress - Cardiovascular Cardiovascular: regular rate and rhythym - ASA Status ASA Status: III ANE Anesthesia Plan Anesthesia Plan: GA with mask Urgent/Emergent Case: Anes eval completed preop but documented later for safe timely pt care
--- NOTE | 2018-07-11 15:21 | SOAPPROG ---
[facility] Progress Note Assessment/Plan: Assessment:Plan: 1) duodenal 'ulcer' - protruding lesion with visible vessel s/p clips - PPI BID. After thinking overnight I do wnat to repaet EGD tomorrow to relook at that site to see what the bleeding risk is in the near term. NPO in am. 2) Anemia - Hb dropped but maybe not c/w rebleed - recheck now with Comp panel to look at BUN/cr ratio and lfts 3) DVT - anticoagulation on hold for now, unclear etiology ?query clotting disorder? query related to malignancy that is not yet identified? 4) Diet - if HB stable and BUN/cr decreased then advance diet and NPO in am for EGD late morning or early afternoon tomorrow 5) anticoagulation - on hold but INR still 1.94 07/10/18 12:56 07/11/18 15:19 see EGD from today today's exam shows this to be DU with one clip still in place - I placed one more low risk of rebleed given today's endoscopic findings significant gastritis and another clean based DU seen on today exam as better visualization without active bled OK to restart Heparin today Giles Lewis MD [phone] Objective: Vital Signs Temp Pulse Resp BP Pulse Ox 36.6 C 86 16 145/90 H 95 07/11/18 14:18 07/11/18 15:11 07/11/18 15:11 07/11/18 15:11 07/11/18 15:11 Microbiology 07/05/18 13:30 Blood Culture - Final Blood 07/05/18 13:50 Blood Culture - Final Blood Laboratory Results 07/11/18 03:26 07/10/18 13:35 07/10/18 07/11/18 07/12/18 05:59 05:59 05:59 Intake Total 1200 1600 Output Total 1300 1925 800 Balance -100 -325 -800 PT 21.9 SEC (12.0-15.0) H 07/11/18 03:26 INR 1.90 (0.83-1.16) H 07/11/18 03:26 ICD10 Worksheet Patient Problems: Problems Problem Status Onset Acute coronary syndrome Acute Chest pain Acute Elevated troponin Acute Pneumonia Acute Acute blood loss anemia Acute Acute renal failure Acute Mitral valve regurgitation Acute S/P CABG x 5 Acute ~12/29/16 CAD, multiple vessel Chronic Ischemic cardiomyopathy Chronic
[2018-07-11] MEDS ORDERED: HEPARIN 10,000 UNIT/10 ML MDV (1,000 UNIT/ML) IVP PRN (15:26)
[2018-07-11] MEDS ORDERED: HEPARIN/DEXTROSE 500 ML IV SCH (15:30)
[2018-07-11 17:39] LABS: INR 1.81 (0.83-1.16); PROTIME(PATIENT) 21.1 SEC (12.0-15.0)
[2018-07-11 17:42] LABS: PLATELET COUNT 224 10^3/uL (150-400)
[2018-07-12] MEDS: INSULIN LISPRO 100 UNIT/ML SC SCH ×3 (09:08→18:22)
[2018-07-12] MEDS: SENNOSIDES/DOCUSATE SODIUM TAB PO SCH ×2 (09:18→19:44)
[2018-07-12] MEDS: ATORVASTATIN CALCIUM 40 MG TAB PO SCH (09:19)
[2018-07-12] MEDS: metFORMIN HCL 500 MG TAB PO SCH (09:19)
[2018-07-12] MEDS: LISINOPRIL 20 MG TAB PO SCH (09:19)
[2018-07-12] MEDS: FUROSEMIDE 40 MG TAB PO SCH (09:19)
[2018-07-12] MEDS: PANTOPRAZOLE SODIUM 40 MG TAB PO SCH ×2 (09:19→19:44)
[2018-07-12] MEDS: CARVEDILOL 6.25 MG TAB PO SCH ×2 (09:19→18:26)
--- NOTE | 2018-07-12 12:01 | ASMTCMCOM ---
CM Note CM Note Notes: Pts case discussed in tx rounds. CM cancelled pts appointment at [facility] for tomorrow. Pt will most likely not be ready for d/c. Pt had an EDG yesterday. CM to follow. Plan: [facility] f/u for INR checks Date Signed: 07/12/2018 12:00 PM Electronically Signed By:AJAY Burton
--- NOTE | 2018-07-12 13:30 | HOSPPROG ---
Hospitalist Progress Note Assessment/Plan: #Duodenal ulcer (protruding lesion): s/p 4 clips -repeat EGD 07/11 showed [address], so new clip added -H/H stable with heparin overnight. Will start Coumadin with serial labs -patient acknowledged risk for rebleed with these medications #ABLA: due to above. 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 Demand in setting of above. #Extensive LUE/IJ DVT: hep gtt. Restart coumadin #Recent syncopal episode: pacemaker interrogated. #Cough: Suspect r/t pulmonary edema. RVP and procalcitonin negative. #CAD: S/p 5v CABG in 2017. Statin started here. Holding ASA #Diabetes: metformin, added SSI H/o atrial fibrillation: Post-operative. None on last ICD check. Now anticoagulated. Had KACIE closure. E. H/o LLE DVT: 01/2017. Reportedly non-compliant with anticoagulation at that time. Interview/exam done with in-person Regional Retail Sales Manager. Son bedside and questions answered. Subjective: no dizziness or light-headedness Objective: Vital Signs Temp Pulse Resp BP Pulse Ox 36.4 C 76 16 115/77 94 07/12/18 11:53 07/12/18 11:53 07/12/18 11:53 07/12/18 11:53 07/12/18 11:53 Microbiology 07/05/18 13:30 Blood Culture - Final Blood 07/05/18 13:50 Blood Culture - Final Blood Laboratory Results 07/12/18 05:30 07/11/18 07/12/18 07/13/18 05:59 05:59 05:59 Intake Total 1600 940 480 Output Total 1925 1475 150 Balance -325 -535 330 PT 21.1 SEC (12.0-15.0) H 07/11/18 17:18 INR 1.81 (0.83-1.16) H 07/11/18 17:18 - Time Spent With Patient Time Spent with Patient: greater than 35 minutes Time Spent with Patient: Greater than 35 minutes spent on this patients care, greater than 50% of time spent counseling, educating, and coordinating care regarding the above mentioned plan. - Physical Exam Constitutional: no apparent distress Cardiovascular: other (pacemaker in LUE chest), No edema Respiratory: no respiratory distress, No inspiratory crackles Gastrointestinal: normoactive bowel sounds Genitourinary: no bladder fullness Skin: warm Musculoskeletal: full muscle strength Neurologic: AAOx3, CN II-XII Intact Psychiatric: interacting appropriately ICD10 Worksheet Patient Problems: Problems Problem Status Onset Acute coronary syndrome Acute Chest pain Acute Elevated troponin Acute Pneumonia Acute Acute blood loss anemia Acute Acute renal failure Acute Mitral valve regurgitation Acute S/P CABG x 5 Acute ~12/29/16 CAD, multiple vessel Chronic Ischemic cardiomyopathy Chronic
[2018-07-12 13:47] LABS: INR 1.65 (0.83-1.16); PROTIME(PATIENT) 19.6 SEC (12.0-15.0)
[2018-07-12] MEDS ORDERED: WARFARIN SODIUM 5 MG TAB PO ONE (14:15)
--- NOTE | 2018-07-12 19:13 | SOAPPROG ---
[facility] Progress Note Assessment/Plan: Assessment:Plan: 1) duodenal 'ulcer' - protruding lesion with visible vessel s/p clips - PPI BID. After thinking overnight I do wnat to repaet EGD tomorrow to relook at that site to see what the bleeding risk is in the near term. NPO in am. 2) Anemia - Hb dropped but maybe not c/w rebleed - recheck now with Comp panel to look at BUN/cr ratio and lfts 3) DVT - anticoagulation on hold for now, unclear etiology ?query clotting disorder? query related to malignancy that is not yet identified? 4) Diet - if HB stable and BUN/cr decreased then advance diet and NPO in am for EGD late morning or early afternoon tomorrow 5) anticoagulation - on hold but INR still 1.94 07/10/18 12:56 07/11/18 15:19 see EGD from today today's exam shows this to be DU with one clip still in place - I placed one more low risk of rebleed given today's endoscopic findings significant gastritis and another clean based DU seen on today exam as better visualization without active bled OK to restart Heparin today Giles Lewis MD [phone] 07/12/18 19:10 1) DU - s/p clips - looks like it is healing on, last EGD, PPI BID then daily [facility] 2) anemia - stable as bleeding has stopped, BUN/cr ratio decreasing c/w no more bleeding into UGI tract 3) DVT - back on anticoagulation as per primary team I will sign off recall if needed thank you 07/12/18 19:12 Subjective: CC- UGI bled from large DU s/p clips pt feeling well no abdo pain no n/v stool solid but black Objective: Vital Signs Temp Pulse Resp BP Pulse Ox 36.9 C 76 9 L 144/77 H 97 07/12/18 16:00 07/12/18 16:00 07/12/18 16:00 07/12/18 16:00 07/12/18 16:00 Laboratory Results 07/12/18 13:05 07/12/18 05:30 07/11/18 07/12/18 07/13/18 05:59 05:59 05:59 Intake Total 1600 940 880 Output Total 1925 1475 150 Balance -325 -535 730 PT 19.6 SEC (12.0-15.0) H 07/12/18 13:05 INR 1.65 (0.83-1.16) H 07/12/18 13:05 Alert CTA S1S2 +BS, soft nt Laboratory Tests 07/10/18 07/12/18 07/12/18 13:35 00:55 05:30 Hgb 10.9 L BUN 24 H 16 Creatinine 1.0 1.0 07/12/18 07/12/18 05:30 13:05 Hgb 10.3 L 10.6 L BUN Creatinine ICD10 Worksheet Patient Problems: Problems Problem Status Onset Acute coronary syndrome Acute Chest pain Acute Elevated troponin Acute Pneumonia Acute Acute blood loss anemia Acute Acute renal failure Acute Mitral valve regurgitation Acute S/P CABG x 5 Acute ~12/29/16 CAD, multiple vessel Chronic Ischemic cardiomyopathy Chronic
[2018-07-13 07:43] VITALS: BP 142/82
[2018-07-13] MEDS: INSULIN LISPRO 100 UNIT/ML SC SCH ×2 (08:38→13:35)
[2018-07-13 08:47] LABS: INR 1.48 (0.83-1.16); PROTIME(PATIENT) 18.1 SEC (12.0-15.0)
[2018-07-13] MEDS: ATORVASTATIN CALCIUM 40 MG TAB PO SCH (09:10)
[2018-07-13] MEDS: LISINOPRIL 20 MG TAB PO SCH (09:10)
[2018-07-13] MEDS: PANTOPRAZOLE SODIUM 40 MG TAB PO SCH (09:10)
[2018-07-13] MEDS: metFORMIN HCL 500 MG TAB PO SCH (09:10)
[2018-07-13] MEDS: SENNOSIDES/DOCUSATE SODIUM TAB PO SCH (09:10)
[2018-07-13] MEDS: CARVEDILOL 6.25 MG TAB PO SCH (09:10)
[2018-07-13] MEDS: FUROSEMIDE 40 MG TAB PO SCH (09:10)
--- NOTE | 2018-07-13 11:45 | ASMTLACE ---
LACE Length of stay for Answers: 7-13 days current admission Acuity / Level of Answers: Yes Care: Did the patient have an inpatient admission? Comorbidities - select Answers: Diabetes (uncontrolled or all that apply controlled) Other Notes: HTN; AFib # of Emergency department Answers: 1-2 visits in the last 6 months Score: 11 Date Signed: 07/13/2018 11:45 AM Electronically Signed By:AJAY Burton
--- NOTE | 2018-07-13 12:17 | ASMTDCNOTE ---
Case Management Discharge Discharge Order Complete? Answers: Yes Patient to Obtain Answers: Independently Medications Transportation Arranged Answers: Family/Friends EMTALA Complete Answers: No Case Management Transport Answers: No Form Complete Faxed Final Orders Answers: No Agency/Facility Transfer Answers: No Report Printed & Faxed to Receiving Agency Family Notified Answers: Yes Discharge Comments Notes: Pts case discussed in tx rounds. Pt is being d/c'd today. Dr. Thibodeaux will be giving pt hard scripts to be bring to [facility] to fill. CM spoke to [facility] and informed them that pt will need his INRs checked this week. Pt is scheduled to see Lucy Trejo at 11:25AM on 07/15 (blue pod). Pt is also scheduled to see a financial screener on 07/19 at 2PM. Pt will need to bring $100 for down payment to go towards his appointment. Pt previously didn't follow through w/ seeing a financial counselor. CM met w/ pt w/ the senior benefits analyst and provided this information. CM spoke w/ pts daughter in law Inga. Inga reports that she will bring the prescriptions to [facility] and it'll be the cheapest option for them. She reports that they have filled previous heart meds there and they have been inexpensive. CM went over pts appointments w/ Inga. CM transferred Inga to pts nurse Ritesh to go over med list. CM available for changes. Plan: Independent w/ outpatient follow up at [facility] Date Signed: 07/13/2018 12:16 PM Electronically Signed By:AJAY Burton
--- NOTE | 2018-07-13 15:01 | PDDCSUM ---
Discharge Summary Discharge Summary: Date of Admission: 07/05/2018 Date of Discharge: 07/13/2018 Consults: GI Procedures: EGD Followup: PCP, GI Hospital Course Problem List: #Duodenal ulcer (protruding lesion): s/p 4 clips -repeat EGD 07/11 showed [address], so new clip added -H/H stable with heparin and coumadin, will have repeat INR on Wednesday -patient acknowledged risk for rebleed with these medications #ABLA: due to above. 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 Demand in setting of above. #Extensive LUE/IJ DVT: hep gtt. Restarted coumadin #Recent syncopal episode: pacemaker interrogated. #Cough: Suspect r/t pulmonary edema. RVP and procalcitonin negative. #CAD: S/p 5v CABG in 2017. Statin started here. Holding ASA #Diabetes: metformin, added SSI #H/o atrial fibrillation: Post-operative. None on last ICD check. Now anticoagulated. Had KACIE closure. #H/o LLE DVT: 01/2017. Reportedly non-compliant with anticoagulation at that time. Time spent on discharge was >35 minutes with >50% of time spent on patient education and counseling.
[2018-07-13] MEDS ORDERED: WARFARIN SODIUM 5 MG TAB PO ONE (16:00)
== END 2018-07-13 14:41 | disposition home or self-care (01) | DRG 291 ==
LOC: F2W 14:17
PROVIDERS: ADMIT Internal Medicine; ATTEND Internal Medicine
PROC: 0W3P8ZZ Control Bleeding in Gastrointestinal Tract, Via Natural or Artificial Opening Endoscopic (ICD-10-PCS; principal; 2018-07-09 18:30)
PROC: 0DB68ZX Excision of Stomach, Via Natural or Artificial Opening Endoscopic, Diagnostic (ICD-10-PCS; 2018-07-11)
DX: I50.23 Acute on chronic systolic (congestive) heart failure (principal); K26.4 Chronic or unspecified duodenal ulcer with hemorrhage; D62 Acute posthemorrhagic anemia; I82.C12 Acute embolism and thrombosis of left internal jugular vein; I82.622 Acute embolism and thrombosis of deep veins of left upper extremity; I25.5 Ischemic cardiomyopathy; K29.50 Unspecified chronic gastritis without bleeding; I50.1 Left ventricular failure, unspecified; R79.89 Other specified abnormal findings of blood chemistry; I48.91 Unspecified atrial fibrillation; I25.10 Atherosclerotic heart disease of native coronary artery without angina pectoris; I11.0 Hypertensive heart disease with heart failure; E11.9 Type 2 diabetes mellitus without complications; Z95.1 Presence of aortocoronary bypass graft; Z95.810 Presence of automatic (implantable) cardiac defibrillator; Z23 Encounter for immunization; Z87.891 Personal history of nicotine dependence; Z86.718 Personal history of other venous thrombosis and embolism; Z87.11 Personal history of peptic ulcer disease
CPT/HCPCS: 82435-PO; 82565-PO; 82947-PO; 84132-PO; 84295-PO; 84484-ER; 84520-PO; 85014-ER; 85520-90; 92523-GN; 92526-GN; 92610-GN; 96365; 97116-GP; 97161-GP; 97166-GO; 97530-GO; 97530-GP; 97535-GO; G0008; J1644; J1650; J1815; J1940; J1956; J2001; J2704; J3010; Q9957

== ENCOUNTER 2018-07-22 16:34 | Emergency (ER) | payer OTHER ==
--- NOTE | 2018-07-22 17:25 | EDPHY ---
General Time Seen by Provider: 07/22/18 17:24 Narrative: CLINICAL IMPRESSION: Subtherapeutic INR, medication noncompliance ASSESSMENT/PLAN: Patient is a 78-year-old male with a significant history of recent left upper extremity DVT diagnosed on 07/05/2018, systolic heart failure, ischemic cardiomyopathy with pacemaker, diabetes mellitus and coronary artery disease who was discharged from our hospital on 07/13/2018 presents to the emergency department subtherapeutic on his INR as result of not taking his Coumadin since his discharge. Patient is afebrile, not toxic-appearing and without complaints in the emergency department. He was sent here by the [facility] as his INR was found to be 1.0 just prior to arrival. Tafgjhfu-fp-zoy did give the patient 7.5 mg of Coumadin just prior to coming to the emergency department after she realized that he had not been taking any of his medications. I discussed this case with pharmacy, patient was given Lovenox per weight base of 70 mg as well as an additional 2.5 mg of Coumadin to total a dose of 10 mg today. He will continue 5 mg of Coumadin daily and 70 mg of Lovenox twice daily until follow-up with his primary care on Wednesday. He is followed closely at [facility] by No JON, his appointment is scheduled for Wednesday for follow-up. He had no symptoms to warrant additional workup in the emergency department, his physical examination is otherwise unremarkable. Patient is present with his alymjeke-dt-wxc who will be administering his medications as there was miscommunication about the Coumadin only, he has been compliant with all of his other medications since his discharge. We clearly discussed the need to bridge with Lovenox and Coumadin, he was given a prescription for 5 days worth of Lovenox. Conservative return precautions were discussed-patient to return for dizziness, headache, chest pain, shortness of breath, ataxia, altered mentation, extremity swelling or for any other concerning symptom. Patient and his jgbldpfj-re-tsh both verbalized understanding and they are in agreement with this plan. Differential diagnosis including but not limited to and in no certain order medication noncompliance, adverse medication reaction ED COURSE: 1715: Case discussed with Dr. Aly as well as with case management. 1748: After further discussion with the yfmdejxu-ra-ppu, once she confirmed that the patient did not take any of his Coumadin she had him take 7.5 mg just prior to coming to the emergency department. 1830: Case management met with the family, they will be able to afford Lovenox prescription until seen by primary care provider. Utility Aide services were also provided to ensure communication and importance of compliance of medication therapies. 1855: On repeat examination prior to discharge the patient is well-appearing without complaints. There are no further questions or concerns. CHIEF COMPLAINT: Subtherapeutic INR HPI: Patient is a 78-year-old male with a significant history of recent left upper extremity DVT diagnosed on 07/05/2018, systolic heart failure, diabetes mellitus and coronary artery disease status post CABG who presents to the emergency department after being found to be subtherapeutic on his INR today. Patient was recently discharged from the hospital on July 13 after approximately a week admission secondary to bilateral pneumonia, heart failure exacerbation and left upper extremity DVT. Patient was started on heparin and bridged to Coumadin, was prescribed Coumadin upon discharge however patient was unclear about continuing to take this and has not taken any since his discharge. He has had 2 follow-up appointments with Coumadin clinic both with subtherapeutic INRs; 1st INR reported at 1.46 and last INR today of 1.0. Patient states he is feeling pretty well since his discharge from the hospital. He in fact feels that he is improving every day, he still has a mild cough which is significantly improved since he was discharged from the hospital. He feels mildly tired however this also is improving. He denies any headache, dizziness , extremity swelling, chest pain, shortness of breath, abdominal pain or urinary symptoms. Currently lives at home with his son, he takes his medications by himself. The gnfneypo-rm-oey with whom he is present today went through his Coumadin prescription and recognized that 30 tablets out of 30 were still remaining consistent with medication noncompliance. PMH: Systolic heart failure, ischemic cardiomyopathy with pacemaker, coronary artery disease status post CABG, DVT, hypertension Pertinent Past Surgical History: CABG Family History: Noncontributory Social History: Denies smoking or illicit drug use REVIEW OF SYSTEMS: All other systems negative Constitutional: No fever, no chills, appetite change. Eyes: No discharge, vision change ENT: No sore throat, congestion, ear pain. Cardiovascular: No chest pain, no palpitations. Respiratory: Cough No shortness of breath. Gastrointestinal: No abdominal pain, no vomiting, diarrhea. Genitourinary: No hematuria, dysuria, flank pain, pelvic pain Musculoskeletal: No back pain, joint swelling, joint pain, myalgias. Skin: No rashes, color change. Neurological: No headache, dizziness, weakness. PHYSICAL EXAM: General Appearance: Well-appearing and in no acute distress. Patient is Luxembourger-speaking only, present with his mnksdzcq-wx-okl who is fluent. HENT: Normocephalic, atraumatic. Bilateral external ears are normal. Bilateral tympanic membranes are normal with pearly ruby reflex. Nares are clear, mucosa is pink. Oropharynx is clear, uvula is midline. There is no tonsillar enlargement or exudate. The dentition is normal. Eyes: PERRLA, no acute vision change, nystagmus, swelling, discharge, pain or photosensitivity. Conjunctiva pink, no pallor or injection Neck: Supple, nontender, no lymphadenopathy, no midline pain, FROM, no meningismus. Respiratory: There are no retractions, lungs are clear to auscultation. Cardiac: Regular rate and rhythm, no murmurs or gallops. Gastrointestinal: Abdomen is soft, nontender, bowel sounds normal, no masses/ hernia, no rigidity, guarding or focal peritoneal findings. Neurological: Alert and oriented x 3, CN 2-12 grossly intact, normal gait no ataxia, DTR's intact, normal sensation and strength Skin: Warm, dry, no rashes, no nodules on palpation. Musculoskeletal: Extremities are symmetrical, full range of motion, no tenderness, deformity or erythema. Left upper extremity specifically with no appreciable edema or tenderness to palpation. Psychiatric: Patient is oriented X 3, there is no agitation. MEDICAL DECISION MAKING: Patient was seen independently. Secondary supervising physician at time of evaluation was Dr. Aly. Diagnosis: Subtherapeutic INR. New, requires workup Summary: See Assessment and Plan for summary of ED visit Clinical lab tests: Not applicable. Independent visualization of images, tracing, or specimens:Not applicable Decision to obtain medical records or history from someone other than the patient: Yes, [id number]-[id number] Review / Summarize previous medical records: Yes Discussed patient with another provider: Yes, Dr. Aly Patient Progress: Stable, discharge. - History Smoking Status: Former smoker - Objective Vital Signs: Initial Vital Signs Temperature (C) 37.0 C 07/22/18 16:39 Heart Rate 94 07/22/18 16:39 Respiratory Rate 18 07/22/18 16:39 Blood Pressure 169/103 H 07/22/18 16:39 O2 Sat (%) 93 07/22/18 16:39 O2 Delivery Mode Room Air Allergies/Adverse Reactions: erythromycin base [From E-Mycin] Allergy (Unknown, Verified 07/22/18 16:43) Itching Home Medications: Medication Instructions Recorded Lisinopril [Zestril 20 mg (*)] 20 mg PO DAILY 01/04/18 metFORMIN HCL [Glucophage 500 mg 500 mg PO DAILY 01/05/18 (*)] Furosemide [Lasix 40 MG (*)] 40 mg PO DAILY 07/05/18 Atorvastatin Calcium [Lipitor 40 40 mg PO DAILY #30 tab 07/13/18 mg (*)] Carvedilol [Coreg (*)] 6.25 mg PO BIDMEAL #60 tab 07/13/18 Pantoprazole Sodium [Protonix 40mg 40 mg PO BID #120 tab 07/13/18 (*)] Warfarin Sodium [Coumadin 5MG (*)] 5 mg PO DAILY #30 tab 07/13/18 Enoxaparin [Lovenox 80 MG (*)] 70 mg SQ Q12H 5 Days syr 07/22/18 Medications Given: Discontinued Medications Enoxaparin Sodium (Lovenox) 70 mg SC EDNOW ONE Stop: 07/22/18 17:32 Last Admin: 07/22/18 18:44 Dose: 70 mg Warfarin Sodium (Coumadin) 10 mg PO EDNOW ONE Stop: 07/22/18 17:33 Last Admin: 07/22/18 18:46 Dose: Not Given Warfarin Sodium (Coumadin) 2.5 mg PO EDNOW ONE Stop: 07/22/18 17:49 Last Admin: 07/22/18 18:44 Dose: 2.5 mg Departure - Departure Disposition: Home, Routine, Self-Care Clinical Impression: Subtherapeutic anticoagulation, Nonadherence to medication Condition: Good Instructions: Blood Thinners (ED) Additional Instructions: DISCHARGE INSTRUCTIONS FROM YOUR DOCTOR Thank you for visiting our emergency department today. Please keep in mind that discharge from the emergency department does not mean that there is nothing wrong - it simply means that we have not identified an emergency condition that requires further evaluation or treatment in the hospital. It is very important that you continue taking your Coumadin and her Lovenox. Your Lovenox will need to be administered twice per day, this is an injection. Continue the Lovenox injections twice per day until follow-up with Dr. Sarabia on Wednesday for further instructions. Please start Coumadin 5 mg per day starting tomorrow and take daily until you follow up with Dr. Sarabia on Wednesday. As you were not complaining of any physical symptoms, no additional workup was performed. Please return to the emergency department for development of extremity swelling, headache, dizziness, chest pain, shortness of breath or for any other concerning symptom. People present with illnesses and injuries in different ways, and it is always possible that we have missed something. You may always return for re-evaluation if symptoms worsen or if they are not improving or if you develop new/different symptoms. Again, thank you for choosing our emergency department. We hope that you feel better. INSTRUCCIONES DE YANEZ MDICO PARA DARLE DE SILVIA DE LA TIFFANY DE EMERGENCIA - Farrah por visitar nuestro Departamento de emergencia hoy. Tenga en cuenta que darle de silvia de la tiffany de emergencia no significa que no hay nada jose de jesus - simplemente significa que no hemos identificado karri situacin de emergencia que requiere karri evaluacin adicional o tratamiento en el hospital. Es muy importante que usted contine tomando yanez Coumadin y yanez Lovenox. El Lovenox tendr que ser administrado dos veces al da, se trata de karri inyecci n. Continan las inyecciones de Lovenox dos veces al da hasta el seguimiento con el Dr. Sarabia el daniel para obtener ms instrucciones. Por favor empiece el Coumadin 5 mg por da a partir de maana y todos los oliva hasta que usted supa al Dr. Sarabia el daniel. [place] no se quejaba de cualquier sntoma fsico, no se hizo un trabajo adicional. Por favor regrese al servicio de emergencias para el desarrollo de extremidades, hinchazn, dolor de gena, mareos, dolor en el pecho, dificultad para respirar o para cualquier otro en cuanto a sntoma. Personas presentan enfermedades y lesiones de diferentes maneras, y siempre es posible que hemos perdido algo. Siempre puede devolver para reevaluacin si los sntomas empeoran o si no estn mejorando o si se desarrollan sntomas nuevos o diferentes. Karri vez ms, farrah por elegir nuestro servicio de urgencias. Esperamos que te sientas mejor. Referrals: No Rodriguez, PAC [Primary Care Provider] - As per Instructions (Wednesday as scheduled) Prescriptions: Enoxaparin [Lovenox 80 MG (*)] 70 mg SQ Q12H 5 Days syr
[2018-07-22] MEDS ORDERED: ENOXAPARIN 80 MG/0.8 ML SYR SC ONE (17:31)
[2018-07-22] MEDS ORDERED: WARFARIN SODIUM 5 MG TAB PO ONE (17:32)
[2018-07-22] MEDS ORDERED: WARFARIN SODIUM 2.5 MG TAB PO ONE (17:48)
[2018-07-22 18:49] VITALS: BP 146/92
--- NOTE | 2018-07-22 19:33 | ASMTCMCOM ---
CM Note CM Note Notes: Pt presented to the ED for low INR and possibly hematuria. Pt apparently was confused about whether to be taking the Coumadin he was discharged home with from [facility] on 07/13/18 so he has not taking it. Pt is adherent with all of his other medications. See ED Provider Report for additional info. CM requested to assist w/pt getting Lovenox Rxn filled. CM called [facility] pharmacy and it would cost >$45 for 6 doses (3 days). CM searched on [employer] website and it states pt can get it filled at [facility], [employer], etc. for around $63-94 w/[employer] Savings card, which was provided to pt and his DIL. CM spoke w/pt's DIL and she states she will be able to afford this cost and will get it filled this evening. Pt's PCP is LD Petersen. at [facility] and has an appt with him on Wednesday07/26/18. No other CM needs identified at this time. CM available for further assistance. Date Signed: 07/22/2018 07:32 PM Electronically Signed By:Sabina Baca RN
== END 2018-07-22 18:58 | disposition home or self-care (01) ==
DX: Z91.14 Patient's other noncompliance with medication regimen (principal); R79.1 Abnormal coagulation profile; I11.0 Hypertensive heart disease with heart failure; I50.20 Unspecified systolic (congestive) heart failure; E11.9 Type 2 diabetes mellitus without complications; I25.10 Atherosclerotic heart disease of native coronary artery without angina pectoris; Z95.1 Presence of aortocoronary bypass graft; Z95.0 Presence of cardiac pacemaker; Z87.891 Personal history of nicotine dependence
CPT/HCPCS: J1650

== ENCOUNTER 2018-11-24 02:12 | Observation (INO) | payer OTHER | END 2018-11-28 16:24 | disposition home or self-care (01) | LOC: F2W 10:00 ==